=== PATIENT | male | born 1965 ===

== ENCOUNTER 2020-02-03 09:56 | Outpatient (REF) | payer OTHER, SELFPAY ==
[2020-02-03 11:53] LABS: MANUAL DIFF FLAG NO
[2020-02-03 12:03] LABS: Basophils Percent Auto 0.4 % (0-2); Eosinophils Absolute Auto 0.2 X10*3/uL (0.0-0.4); Eosinophils Percent Auto 4.1 % (0-4); Hemoglobin 14.2 g/dl (14.0-18.0); Imm Gran Abs Auto 0.02 X10*3/uL (0.00-0.03); Imm Gran Pct Auto 0.4 % (0.0-0.4); Lymphocytes Absolute Auto 2.5 X10*3/uL (1.2-4.9); Lymphocytes Percent Auto 46.5 % (20-40); Mean Corpuscular HGB Conc 32.3 g/dl (31.0-36.0); Mean Corpuscular Hemoglobin 28.2 pg (27.0-33.0); Mean Corpuscular Volume 87.5 fL (80-98); Mean Platelet Volume 9.8 fL (9.4-12.4); Monocytes Absolute Auto 0.3 X10*3/uL (0.1-1.2); Monocytes Percent Auto 5.3 % (2-11); Neutrophils Absolute Auto 2.3 X10*3/uL (2.0-8.3); Neutrophils Percent Auto 43.3 % (45-73); Platelet Count 219 X10*3/uL (160-400); Red Blood Count 5.03 X10*6/uL (4.60-5.80); Red Cell Distribution Width 13.4 % (11.0-16.0); White Blood Count 5.3 X10*3/uL (4.8-10.8)
[2020-02-03 12:46] LABS: Alanine Aminotransferase 45 U/L (0-40); Albumin Level 4.3 g/dL (3.5-5.0); Alkaline Phosphatase 88 U/L (39-117); Anion Gap 10 (12-20); Aspartate Amino Transferase 35 U/L (5-37); Bilirubin Total 0.4 mg/dL (0.0-1.0); Blood Urea Nitrogen 18 mg/dL (9-16); Calcium 8.8 mg/dL (8.4-10.2); Carbon Dioxide 24 mmol/L (22-29); Chloride 106 mmol/L (96-108); Cholesterol 197 mg/dL; Estimated Glomerular Filt Rate > 60; Glucose Fasting 106 mg/dL (60-99); HDL Cholesterol 51 mg/dL; LDL Cholesterol Calculated 116 mg/dl; Potassium 4.2 mmol/l (3.3-5.1); Sodium 136 mmol/L (135-145); Total Protein 7.4 g/dL (6.5-8.0); Triglycerides 150 mg/dL
== END 2020-02-03 09:57 | disposition home or self-care (01) ==
LOC: HO.LAB 09:56
PROVIDERS: PCP Internal Medicine; Visit Provider Internal Medicine
DX: M54.9 Dorsalgia, unspecified (principal)
CPT/HCPCS: 36415; 80053; 80061; 84153; 85025

== ENCOUNTER → 2020-03-01 10:12 | Outpatient (BNVA) | payer OTHER, SELFPAY | PROVIDERS: PCP Internal Medicine; Referring Provider Internal Medicine; Visit Provider Student in an Organized Health Care Education/Training Program | DX: M45.9 Ankylosing spondylitis of unspecified sites in spine (principal); Z79.899 Other long term (current) drug therapy | CPT/HCPCS: 99212 ==

== ENCOUNTER 2020-08-17 14:40 | Outpatient (REF) | payer OTHER, SELFPAY ==
[2020-08-17 15:02] LABS: COVID-19 Test Negative (Negative)
== END 2020-08-17 14:41 | disposition home or self-care (01) ==
LOC: HO.LAB 14:40
PROVIDERS: Visit Provider Internal Medicine
DX: Z20.822 Contact with and (suspected) exposure to COVID-19 (principal)
CPT/HCPCS: 36415; 87635; C9803

== ENCOUNTER → 2020-09-07 09:15 | Outpatient (BNVA) | payer OTHER, SELFPAY | PROVIDERS: Visit Provider Student in an Organized Health Care Education/Training Program | DX: M47.899 Other spondylosis, site unspecified (principal) | CPT/HCPCS: 99212 ==

== ENCOUNTER 2020-10-05 09:23 | Outpatient (REF) | payer OTHER, SELFPAY ==
[2020-10-05 09:52] LABS: MANUAL DIFF FLAG NO
[2020-10-05 10:01] LABS: Basophils Percent Auto 0.4 % (0-2); Eosinophils Absolute Auto 0.3 X10*3/uL (0.0-0.4); Eosinophils Percent Auto 4.6 % (0-4); Hematocrit 41.4 % (42-52); Hemoglobin 13.4 g/dl (14.0-18.0); Imm Gran Abs Auto 0.02 X10*3/uL (0.00-0.03); Imm Gran Pct Auto 0.4 % (0.0-0.4); Lymphocytes Absolute Auto 2.7 X10*3/uL (1.2-4.9); Lymphocytes Percent Auto 48.3 % (20-40); Mean Corpuscular HGB Conc 32.4 g/dl (31.0-36.0); Mean Corpuscular Hemoglobin 28.3 pg (27.0-33.0); Mean Corpuscular Volume 87.5 fL (80-98); Mean Platelet Volume 9.2 fL (9.4-12.4); Monocytes Absolute Auto 0.3 X10*3/uL (0.1-1.2); Monocytes Percent Auto 5.5 % (2-11); Neutrophils Absolute Auto 2.3 X10*3/uL (2.0-8.3); Neutrophils Percent Auto 40.8 % (45-73); Platelet Count 217 X10*3/uL (160-400); Red Blood Count 4.73 X10*6/uL (4.60-5.80); Red Cell Distribution Width 13.1 % (11.0-16.0); White Blood Count 5.6 X10*3/uL (4.8-10.8)
[2020-10-05 10:19] LABS: C Reactive Protein 0.57 mg/dL (< or = 0.50)
[2020-10-05 10:27] LABS: Alanine Aminotransferase 34 U/L (0-40); Albumin Level 4.2 g/dL (3.5-5.0); Alkaline Phosphatase 96 U/L (39-117); Anion Gap 10 (12-20); Aspartate Amino Transferase 28 U/L (5-37); Bilirubin Total 0.5 mg/dL (0.0-1.0); Blood Urea Nitrogen 15 mg/dL (9-16); Calcium 8.8 mg/dL (8.4-10.2); Carbon Dioxide 26 mmol/L (22-29); Chloride 107 mmol/L (96-108); Cholesterol 191 mg/dL; Estimated Glomerular Filt Rate > 60; Glucose Fasting 105 mg/dL (60-99); HDL Cholesterol 48 mg/dL; LDL Cholesterol Calculated 118 mg/dl; Potassium 4.2 mmol/L (3.3-5.1); Sodium 139 mmol/L (135-145); Total Protein 7.2 g/dL (6.5-8.0); Triglycerides 128 mg/dL
[2020-10-05 10:37] LABS: Thyroid Stimulating Hormone 2.07 uIU/mL (0.32-4.0)
[2020-10-05 10:52] LABS: Erythrocyte Sedimentation Rate 20 MM/HR (0-15)
== END 2020-10-05 09:24 | disposition home or self-care (01) ==
LOC: HO.LAB 09:23
PROVIDERS: Absent Provider Internal Medicine; PCP Internal Medicine; Visit Provider Student in an Organized Health Care Education/Training Program
DX: Z00.00 Encounter for general adult medical examination without abnormal findings (principal); M47.899 Other spondylosis, site unspecified; E11.9 Type 2 diabetes mellitus without complications; E03.9 Hypothyroidism, unspecified
CPT/HCPCS: 36415; 80053; 80061; 84443; 85025; 85652; 86140

== ENCOUNTER 2020-10-09 11:14 | Outpatient (REF) | payer OTHER, SELFPAY | END 2020-10-09 11:15 | disposition home or self-care (01) | LOC: HO.HMGCX 11:14 | PROVIDERS: PCP Internal Medicine; Visit Provider Internal Medicine | DX: Z13.89 Encounter for screening for other disorder (principal) ==

== ENCOUNTER 2020-10-22 10:25 | Outpatient (REF) | payer OTHER, SELFPAY ==
--- NOTE | ~2020-10-22 | US_ITS ---
EXAMINATION: US ABDOMEN COMPLETE CLINICAL INFORMATION: Abdominal pain. COMPARISON: US abdomen 04/29/2018 and 07/01/2012. TECHNIQUE: Real-time imaging of the abdominal viscera. FINDINGS: PANCREAS: Normal. ABDOMINAL AORTA: The proximal, mid, and distal segments are normal in caliber. INFERIOR VENA CAVA: Visualized portions are normal. LIVER: The liver is normal in size. The liver contour is normal. There is increased liver echogenicity. No focal hepatic lesion. There is no intrahepatic biliary duct dilatation seen. GALLBLADDER: Wall thickness measures 0.15 cm. The gallbladder is physiologically distended without evidence of stones, sludge, polyps, wall thickening or pericholecystic fluid. COMMON BILE DUCT: Normal in caliber measuring 0.35 cm in diameter. RIGHT KIDNEY: Normal. No hydronephrosis. No renal calculi or focal parenchymal lesions. The kidney measures 11.3 cm in maximum dimension. LEFT KIDNEY: There is an extrarenal left kidney pelvis. No hydronephrosis. No renal calculi or focal parenchymal lesions. The kidney measures 11.6 cm in maximum dimension. SPLEEN: Normal. The spleen measures 10.8 cm in maximum dimension. FREE FLUID: None. US/US abdomen complete IMPRESSION: Hepatic steatosis without focal lesion. Extrarenal left kidney pelvis.
== END 2020-10-22 10:26 | disposition home or self-care (01) ==
LOC: HO.HMGCX 10:25
PROVIDERS: PCP Internal Medicine; Visit Provider Internal Medicine
DX: R10.9 Unspecified abdominal pain (principal)
CPT/HCPCS: 76700

== ENCOUNTER 2021-01-03 08:52 | Outpatient (REF) | payer OTHER, SELFPAY ==
[2021-01-03 09:33] LABS: MANUAL DIFF FLAG NO
[2021-01-03 09:39] LABS: Basophils Percent Auto 0.3 % (0-2); Eosinophils Absolute Auto 0.3 X10*3/uL (0.0-0.4); Eosinophils Percent Auto 4.7 % (0-4); Hematocrit 41.6 % (42-52); Hemoglobin 14.1 g/dl (14.0-18.0); Imm Gran Abs Auto 0.01 X10*3/uL (0.00-0.03); Imm Gran Pct Auto 0.2 % (0.0-0.4); Lymphocytes Absolute Auto 2.7 X10*3/uL (1.2-4.9); Mean Corpuscular HGB Conc 33.9 g/dl (31.0-36.0); Mean Corpuscular Hemoglobin 29.6 pg (27.0-33.0); Mean Corpuscular Volume 87.2 fL (80-98); Mean Platelet Volume 9.4 fL (9.4-12.4); Monocytes Absolute Auto 0.3 X10*3/uL (0.1-1.2); Monocytes Percent Auto 5.6 % (2-11); Neutrophils Absolute Auto 2.4 X10*3/uL (2.0-8.3); Neutrophils Percent Auto 42.2 % (45-73); Platelet Count 217 X10*3/uL (160-400); Red Blood Count 4.77 X10*6/uL (4.60-5.80); Red Cell Distribution Width 13.6 % (11.0-16.0); White Blood Count 5.8 X10*3/uL (4.8-10.8)
[2021-01-03 09:58] LABS: Alanine Aminotransferase 32 U/L (0-40); Albumin Level 4.2 g/dL (3.5-5.0); Alkaline Phosphatase 94 U/L (39-117); Anion Gap 10 (12-20); Aspartate Amino Transferase 25 U/L (5-37); Bilirubin Total 0.4 mg/dL (0.0-1.0); C Reactive Protein 0.36 mg/dL (< or = 0.50); Calcium 9.3 mg/dL (8.4-10.2); Carbon Dioxide 24 mmol/L (22-29); Chloride 108 mmol/L (96-108); Estimated Glomerular Filt Rate > 60; Glucose Random 106 mg/dL (60-115); Potassium 4.3 mmol/L (3.3-5.1); Sodium 138 mmol/L (135-145); Total Protein 7.3 g/dL (6.5-8.0)
[2021-01-03 10:25] LABS: Blood Urea Nitrogen 17 mg/dL (9-16); Erythrocyte Sedimentation Rate 19 MM/HR (0-15)
== END 2021-01-03 08:53 | disposition home or self-care (01) ==
LOC: HO.LAB 08:52
PROVIDERS: PCP Internal Medicine; Visit Provider Student in an Organized Health Care Education/Training Program
DX: M47.899 Other spondylosis, site unspecified (principal)
CPT/HCPCS: 36415; 80053; 85025; 85652; 86140

== ENCOUNTER 2021-05-16 08:27 | Outpatient (REF) | payer OTHER, SELFPAY ==
[2021-05-16 08:52] LABS: MANUAL DIFF FLAG NO
[2021-05-16 09:24] LABS: Basophils Percent Auto 0.2 % (0-2); Eosinophils Absolute Auto 0.4 X10*3/uL (0.0-0.4); Eosinophils Percent Auto 6.6 % (0-4); Hematocrit 41.1 % (42.0-52.0); Hemoglobin 13.6 g/dl (14.0-18.0); Imm Gran Abs Auto 0.01 X10*3/uL (0.00-0.03); Imm Gran Pct Auto 0.2 % (0.0-0.4); Lymphocytes Absolute Auto 2.6 X10*3/uL (1.2-4.9); Lymphocytes Percent Auto 46.9 % (20-40); Mean Corpuscular HGB Conc 33.1 g/dl (31.0-36.0); Mean Corpuscular Hemoglobin 28.8 pg (27.0-33.0); Mean Corpuscular Volume 87.1 fL (80.0-98.0); Mean Platelet Volume 9.3 fL (9.4-12.4); Monocytes Absolute Auto 0.3 X10*3/uL (0.1-1.2); Monocytes Percent Auto 4.7 % (2-11); Neutrophils Absolute Auto 2.3 x10*3/uL (2.0-8.3); Neutrophils Percent Auto 41.4 % (45-73); Platelet Count 198 X10*3/uL (160-400); Red Blood Count 4.72 X10*6/uL (4.60-5.80); Red Cell Distribution Width 13.1 % (11.0-16.0); White Blood Count 5.6 X10*3/uL (4.8-10.8)
[2021-05-16 09:45] LABS: Alanine Aminotransferase 22 U/L (0-40); Alkaline Phosphatase 93 U/L (39-117); Anion Gap 9 (12-20); Aspartate Amino Transferase 23 U/L (5-37); Bilirubin Total 0.5 mg/dL (0.0-1.0); Blood Urea Nitrogen 13 mg/dL (9-16); C Reactive Protein 0.39 mg/dL (< or = 0.50); Carbon Dioxide 24 mmol/L (22-29); Chloride 110 mmol/L (96-108); Estimated Glomerular Filt Rate > 60; Glucose Random 109 mg/dL (60-115); Potassium 4.2 mmol/L (3.3-5.1); Sodium 139 mmol/L (135-145); Total Protein 7.1 g/dL (6.5-8.0)
[2021-05-16 10:06] LABS: Erythrocyte Sedimentation Rate 18 MM/HR (0-15)
== END 2021-05-16 08:28 | disposition home or self-care (01) ==
LOC: HO.LAB 08:27
PROVIDERS: Nurse Practitioner Family; PCP Internal Medicine; Visit Provider Student in an Organized Health Care Education/Training Program
DX: M47.899 Other spondylosis, site unspecified (principal)
CPT/HCPCS: 36415; 80053; 85025; 85652; 86140

== ENCOUNTER → 2021-05-23 08:49 | Outpatient (BNVA) | payer OTHER, SELFPAY | PROVIDERS: PCP Internal Medicine; Visit Provider Nurse Practitioner Family | DX: M47.899 Other spondylosis, site unspecified (principal); M25.551 Pain in right hip; M25.552 Pain in left hip | CPT/HCPCS: 99212 ==

== ENCOUNTER 2021-10-25 07:54 | Outpatient (REF) | payer OTHER, SELFPAY ==
[2021-10-25 08:33] LABS: MANUAL DIFF FLAG NO
[2021-10-25 09:10] LABS: Basophils Percent Auto 0.2 % (0-2); Eosinophils Absolute Auto 0.3 X10*3/uL (0.0-0.4); Eosinophils Percent Auto 5.4 % (0-4); Hematocrit 41.7 % (42.0-52.0); Hemoglobin 13.9 g/dl (14.0-18.0); Imm Gran Abs Auto 0.02 X10*3/uL (0.00-0.03); Imm Gran Pct Auto 0.4 % (0.0-0.4); Lymphocytes Absolute Auto 2.3 X10*3/uL (1.2-4.9); Lymphocytes Percent Auto 45.6 % (20-40); Mean Corpuscular HGB Conc 33.3 g/dl (31.0-36.0); Mean Corpuscular Hemoglobin 28.8 pg (27.0-33.0); Mean Corpuscular Volume 86.5 fL (80.0-98.0); Mean Platelet Volume 9.3 fL (9.4-12.4); Monocytes Absolute Auto 0.3 X10*3/uL (0.1-1.2); Monocytes Percent Auto 5.2 % (2-11); Neutrophils Absolute Auto 2.1 x10*3/uL (2.0-8.3); Neutrophils Percent Auto 43.2 % (45-73); Platelet Count 210 X10*3/uL (160-400); Red Blood Count 4.82 X10*6/uL (4.60-5.80); Red Cell Distribution Width 13.2 % (11.0-16.0)
[2021-10-25 09:32] LABS: Alanine Aminotransferase 24 U/L (0-40); Albumin Level 4.1 g/dL (3.5-5.0); Alkaline Phosphatase 86 U/L (39-117); Anion Gap 11 (12-20); Aspartate Amino Transferase 25 U/L (5-37); Bilirubin Total 0.6 mg/dL (0.0-1.0); Blood Urea Nitrogen 12 mg/dL (9-16); C Reactive Protein 0.31 mg/dL (< or = 0.50); Carbon Dioxide 24 mmol/L (22-29); Chloride 108 mmol/L (96-108); Estimated Glomerular Filt Rate > 60; Glucose Random 106 mg/dL (60-115); Potassium 4.3 mmol/L (3.3-5.1); Sodium 139 mmol/L (135-145); Total Protein 7.2 g/dL (6.5-8.0)
[2021-10-25 09:52] LABS: HBS Num1 11.76 mIU/mL (0-7.99); HBc Num1 0.06 S/CO (0.00-0.79); Hepatitis A Antibody IgM 0.18 Index (0-0.79); Hepatitis B Core Antibody Nonreactive (Nonreactive); Hepatitis B Surface Antigen Negative (Negative); ~Hepatitis A Antibody IgM Nonreactive (Nonreactive); ~Hepatitis C Antibody Nonreactive (Nonreactive)
[2021-10-25 09:57] LABS: Erythrocyte Sedimentation Rate 21 MM/HR (0-15)
[2021-10-25 11:18] LABS: HBS Num3 10.76 mIU/mL (0-7.99); ~Hepatitis B Surface Antibody GRAYZONE (Nonreactive)
[2021-10-29 13:36] LABS: TS Negative Control Passed; TS Panel A 0; TS Panel B 2; TS Positive Control Passed; TSpotTB Negative (Negative)
== END 2021-10-25 07:55 | disposition home or self-care (01) ==
LOC: HO.LAB 07:54
PROVIDERS: PCP Internal Medicine; Visit Provider Nurse Practitioner Family
DX: Z11.1 Encounter for screening for respiratory tuberculosis (principal); M47.899 Other spondylosis, site unspecified
CPT/HCPCS: 36415; 80053; 85025; 85652; 86140; 86481; 86704; 86706; 86709; 86803; 87340

== ENCOUNTER → 2021-10-28 12:17 | Outpatient (BNVA) | payer OTHER, SELFPAY | PROVIDERS: PCP Internal Medicine; Visit Provider Nurse Practitioner Family | DX: M25.551 Pain in right hip (principal); M25.552 Pain in left hip; M47.899 Other spondylosis, site unspecified | CPT/HCPCS: 99212 ==

== ENCOUNTER → 2021-10-30 11:07 | Outpatient (BNVA) | payer OTHER, SELFPAY | PROVIDERS: PCP Internal Medicine; Referring Provider Internal Medicine; Visit Provider Surgery | DX: K64.9 Unspecified hemorrhoids (principal) | CPT/HCPCS: 46600; 99202 ==

== ENCOUNTER 2022-03-07 08:15 | Outpatient (REF) | payer OTHER, SELFPAY ==
[2022-03-07 08:25] LABS: MANUAL DIFF FLAG NO
[2022-03-07 09:00] LABS: Basophils Percent Auto 0.3 % (0-2); Eosinophils Absolute Auto 0.3 X10*3/uL (0.0-0.4); Eosinophils Percent Auto 4.7 % (0-4); Hematocrit 42.6 % (42.0-52.0); Hemoglobin 13.9 g/dl (14.0-18.0); Imm Gran Abs Auto 0.02 X10*3/uL (0.00-0.03); Imm Gran Pct Auto 0.3 % (0.0-0.4); Lymphocytes Percent Auto 47.8 % (20-40); Mean Corpuscular HGB Conc 32.6 g/dl (31.0-36.0); Mean Corpuscular Volume 88.9 fL (80.0-98.0); Mean Platelet Volume 9.3 fL (9.4-12.4); Monocytes Absolute Auto 0.3 X10*3/uL (0.1-1.2); Monocytes Percent Auto 5.2 % (2-11); Neutrophils Absolute Auto 2.6 x10*3/uL (2.0-8.3); Neutrophils Percent Auto 41.7 % (45-73); Platelet Count 228 X10*3/uL (160-400); Red Blood Count 4.79 X10*6/uL (4.60-5.80); Red Cell Distribution Width 13.2 % (11.0-16.0); White Blood Count 6.2 X10*3/uL (4.8-10.8)
[2022-03-07 09:41] LABS: Erythrocyte Sedimentation Rate 28 MM/HR (0-15)
[2022-03-07 09:47] LABS: Alanine Aminotransferase 32 U/L (0-40); Aspartate Amino Transferase 29 U/L (5-37); C Reactive Protein 0.45 mg/dL (< or = 0.50); Estimated Glomerular Filt Rate > 60
== END 2022-03-07 08:16 | disposition home or self-care (01) ==
LOC: HO.LAB 08:15
PROVIDERS: PCP Internal Medicine; Visit Provider Nurse Practitioner Family
DX: M47.899 Other spondylosis, site unspecified (principal); Z79.899 Other long term (current) drug therapy
CPT/HCPCS: 36415; 82565; 84450; 84460; 85025; 85652; 86140

== ENCOUNTER → 2022-04-02 11:47 | Outpatient (BNVA) | payer OTHER, SELFPAY | PROVIDERS: PCP Internal Medicine; Visit Provider Nurse Practitioner Family | DX: M47.899 Other spondylosis, site unspecified (principal); M25.551 Pain in right hip; M25.552 Pain in left hip | CPT/HCPCS: 99212 ==

== ENCOUNTER 2022-06-27 08:45 | Outpatient (REF) | payer OTHER, SELFPAY ==
--- NOTE | ~2022-06-27 | XR_ITS ---
EXAMINATION: XR HIP, RIGHT XR HIP, LEFT CLINICAL INFORMATION: Hip pain. COMPARISON: Pelvis and right hip radiographs 08/26/2017. TECHNIQUE: Each hip is imaged in AP and frog-lateral projections. There are a total of 4 views, 2 on each side. FINDINGS: Normal bony mineralization. No fracture, dislocation, or destructive process. The hips show no focal joint narrowing or erosive change or chondrocalcinosis. Soft tissue planes appear symmetric. No diastases SI joints or pubis. There is mild bilateral lateral whiskering of the iliac crests similar to prior radiograph 2018. Hardware again noted lumbosacral spine. XR/XR hip RT min 2V IMPRESSION: Unremarkable bilateral hips.
--- NOTE | ~2022-06-27 | XR_ITS ---
EXAMINATION: XR HIP, RIGHT XR HIP, LEFT CLINICAL INFORMATION: Hip pain. COMPARISON: Pelvis and right hip radiographs 08/26/2017. TECHNIQUE: Each hip is imaged in AP and frog-lateral projections. There are a total of 4 views, 2 on each side. FINDINGS: Normal bony mineralization. No fracture, dislocation, or destructive process. The hips show no focal joint narrowing or erosive change or chondrocalcinosis. Soft tissue planes appear symmetric. No diastases SI joints or pubis. There is mild bilateral lateral whiskering of the iliac crests similar to prior radiograph 2018. Hardware again noted lumbosacral spine. XR/XR hip LT min 2V IMPRESSION: Unremarkable bilateral hips.
--- NOTE | ~2022-06-27 | XR_ITS ---
EXAMINATION: XR LUMBOSACRAL SPINE CLINICAL INFORMATION: M54.50 - Low back pain, unspecified COMPARISON: Lumbar radiographs 04/29/2011 TECHNIQUE: Three views of the lumbosacral spine. FINDINGS: There is normal lumbar segmentation with 5 nonrib-bearing lumbar vertebrae of normal height and normal lumbar lordosis. There are postsurgical changes with anterior lumbosacral fusion L5-S1 and disc spacer, and metallic plate between posterior spinous processes L3-L4. Hardware is intact. No destructive process or osteolysis. There is no vertebral compression there are anterior bridging osteophytes at L1-L2. There is a borderline grade 0-1 spondylolisthesis at L3-L4 mild degenerative changes SI joints. Sacrum are unremarkable. XR/XR lumbar spine 2-3V IMPRESSION: 1. Postsurgical changes. Hardware intact. No destructive process or osteolysis. 2. Borderline grade 0-1 spondylolisthesis L3-L4. 3. Bridging anterior osteophytes L1-L2.
== END 2022-06-27 08:46 | disposition home or self-care (01) ==
LOC: HO.XRAY 08:45
PROVIDERS: PCP Internal Medicine; Visit Provider Nurse Practitioner Family
DX: M54.50 Low back pain, unspecified (principal); M25.552 Pain in left hip; M25.551 Pain in right hip
CPT/HCPCS: 72100; 73502

== ENCOUNTER 2022-07-17 11:55 | Outpatient (REF) | payer OTHER, SELFPAY ==
--- NOTE | ~2022-07-17 | XR_ITS ---
EXAMINATION: XR KNEES STANDING, BILATERAL XR KNEES, BILATERAL CLINICAL INDICATION: Bilateral knee pain. COMPARISON: Bilateral knees and left knee 03/25/2016. TECHNIQUE: AP bilateral knees standing and 2 views each knee. FINDINGS: Bilateral AP Knees: There is loss of medial compartment joint space without bony erosive changes. There are no loose bodies. The soft tissues are normal. Right Knee: There is loss of patellofemoral compartment joint space with superior patellar spurring. No loose bodies or suprapatellar joint effusion seen. Left Knee: There is severe loss of patellofemoral compartment joint space with periarticular spurring. No visible acute fracture or dislocation seen. There is no joint effusion. XR/XR knee RT 2V IMPRESSION: Degenerative arthritic changes medial and patellofemoral compartment both knees with periarticular spurring. No visible acute fracture or dislocation seen.
--- NOTE | ~2022-07-17 | XR_ITS ---
EXAMINATION: XR KNEES STANDING, BILATERAL XR KNEES, BILATERAL CLINICAL INDICATION: Bilateral knee pain. COMPARISON: Bilateral knees and left knee 03/25/2016. TECHNIQUE: AP bilateral knees standing and 2 views each knee. FINDINGS: Bilateral AP Knees: There is loss of medial compartment joint space without bony erosive changes. There are no loose bodies. The soft tissues are normal. Right Knee: There is loss of patellofemoral compartment joint space with superior patellar spurring. No loose bodies or suprapatellar joint effusion seen. Left Knee: There is severe loss of patellofemoral compartment joint space with periarticular spurring. No visible acute fracture or dislocation seen. There is no joint effusion. XR/XR knee LT 2V IMPRESSION: Degenerative arthritic changes medial and patellofemoral compartment both knees with periarticular spurring. No visible acute fracture or dislocation seen.
--- NOTE | ~2022-07-17 | XR_ITS ---
EXAMINATION: XR KNEES STANDING, BILATERAL XR KNEES, BILATERAL CLINICAL INDICATION: Bilateral knee pain. COMPARISON: Bilateral knees and left knee 03/25/2016. TECHNIQUE: AP bilateral knees standing and 2 views each knee. FINDINGS: Bilateral AP Knees: There is loss of medial compartment joint space without bony erosive changes. There are no loose bodies. The soft tissues are normal. Right Knee: There is loss of patellofemoral compartment joint space with superior patellar spurring. No loose bodies or suprapatellar joint effusion seen. Left Knee: There is severe loss of patellofemoral compartment joint space with periarticular spurring. No visible acute fracture or dislocation seen. There is no joint effusion. XR/XR knee standing BI IMPRESSION: Degenerative arthritic changes medial and patellofemoral compartment both knees with periarticular spurring. No visible acute fracture or dislocation seen.
== END 2022-07-17 11:56 | disposition home or self-care (01) ==
LOC: HO.HOSX 11:55
PROVIDERS: Visit Provider Orthopaedic Surgery
DX: M17.0 Bilateral primary osteoarthritis of knee (principal); M25.462 Effusion, left knee
CPT/HCPCS: 20610; 73560; 73565; 99212; J1100

== ENCOUNTER → 2022-07-25 11:47 | Outpatient (BNVA) | payer OTHER, SELFPAY | PROVIDERS: PCP Internal Medicine; Visit Provider Nurse Practitioner Family | DX: M47.899 Other spondylosis, site unspecified (principal); M25.551 Pain in right hip; M25.552 Pain in left hip | CPT/HCPCS: 99212 ==

== ENCOUNTER 2022-09-26 09:36 | Outpatient (REF) | payer OTHER, SELFPAY ==
[2022-09-26 09:54] LABS: MANUAL DIFF FLAG NO
[2022-09-26 11:02] LABS: Basophils Percent Auto 0.4 % (0-2); Eosinophils Absolute Auto 0.2 X10*3/uL (0.0-0.4); Eosinophils Percent Auto 4.3 % (0-4); Hematocrit 42.8 % (42.0-52.0); Hemoglobin 14.1 g/dl (14.0-18.0); Imm Gran Abs Auto 0.01 X10*3/uL (0.00-0.03); Imm Gran Pct Auto 0.2 % (0.0-0.4); Lymphocytes Absolute Auto 2.9 X10*3/uL (1.2-4.9); Lymphocytes Percent Auto 52.2 % (20-40); Mean Corpuscular HGB Conc 32.9 g/dl (31.0-36.0); Mean Corpuscular Hemoglobin 28.9 pg (27.0-33.0); Mean Corpuscular Volume 87.7 fL (80.0-98.0); Mean Platelet Volume 9.6 fL (9.4-12.4); Monocytes Absolute Auto 0.3 X10*3/uL (0.1-1.2); Monocytes Percent Auto 5.3 % (2-11); Neutrophils Absolute Auto 2.1 x10*3/uL (2.0-8.3); Neutrophils Percent Auto 37.6 % (45-73); Platelet Count 239 X10*3/uL (160-400); Red Blood Count 4.88 X10*6/uL (4.60-5.80); Red Cell Distribution Width 13.2 % (11.0-16.0); White Blood Count 5.6 X10*3/uL (4.8-10.8)
[2022-09-26 11:35] LABS: Alanine Aminotransferase 20 U/L (0-40); Albumin Level 3.8 g/dL (3.5-5.0); Alkaline Phosphatase 79 U/L (39-117); Anion Gap 12 (12-20); Aspartate Amino Transferase 18 U/L (5-37); Bilirubin Total 0.5 mg/dL (0.0-1.0); Blood Urea Nitrogen 14 mg/dL (9-16); C Reactive Protein 0.21 mg/dL (< or = 0.50); Calcium 8.9 mg/dL (8.4-10.2); Carbon Dioxide 23 mmol/L (22-29); Chloride 109 mmol/L (96-108); Estimated Glomerular Filt Rate > 60; Glucose Random 99 mg/dL (60-115); Potassium 4.4 mmol/L (3.3-5.1); Sodium 140 mmol/L (135-145); Total Protein 6.5 g/dL (6.5-8.0)
[2022-09-26 11:47] LABS: Erythrocyte Sedimentation Rate 10 MM/HR (0-15)
== END 2022-09-26 09:37 | disposition home or self-care (01) ==
LOC: HO.LAB 09:36
PROVIDERS: Visit Provider Nurse Practitioner Family
DX: M47.899 Other spondylosis, site unspecified (principal)
CPT/HCPCS: 36415; 80053; 85025; 85652; 86140

== ENCOUNTER 2022-11-25 11:01 | Outpatient (AMB) | payer OTHER, SELFPAY ==
--- NOTE | 2022-11-25 10:56 | A.OFFPC_ITS ---
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: Med Management Intake Note: Patient is here to follow up on med management. 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 Space Operations: Not Required per policy Accompanied by: Self / Same As Patient Allergies seasonal allergies Allergy (Unknown, Uncoded 11/25/22 10:57) Unknown Medication List - Last Reconciled 11/25/22 by Roldan Andino MD albuterol sulfate 90 mcg/actuation 2 puffs inhalation Q6H PRN 30 days etanercept (Enbrel SureClick) 50 mg subcut QWEEK fluticasone propionate 50 mcg/actuation 1 spray intranasal BID naproxen 500 mg PO BID PRN omeprazole 20 mg PO DAILY oxycodone 10 mg PO Q8H PRN 28 days sildenafil (Viagra) 50 mg PO DAILY PRN Tobacco use date assessed: 08/29/22 HPI Med Management HPI Details f/u failed back syndrome; doing well PFSH Medical History Asthma Failed back syndrome Family history of GERD History of rectal bleeding HLA-B27 spondyloarthropathy Hx of gout Hx of hemorrhoids Hx of osteoarthritis Obesity Surgical History History of adenoidectomy History of arthroscopy of right knee History of back surgery History of inguinal hernia repair History of lumbar surgery Hx of knee surgery Hx of tonsillectomy Family History Mother Pancreas cancer Diabetes Father Prostate cancer Rheumatoid arthritis Brother Diabetes Sister Diabetes Daughter No problems noted. Social History Housing: House Alcohol intake: current Alcohol intake frequency: holidays/special occasions only Patient Tobacco Use Status: Former Tobacco user Tobacco use type: Cigarette e-Cigarette/Vaping Use: Never Used Second Hand Smoke Exposure: Yes service: No Current occupational status: disabled Cognitive needs: No Hearing needs: No Vision needs: No Questionnaire Thrive Questionnaire Date Thrive assessed: 08/01/22 VIKTORIA-7 AMB Questionnaire VIKTORIA-7 Date VIKTORIA - 7 assessed: 08/01/22 Source: Developed by Drs. Carroll Power, Chiquita Porter, Rod Branham and colleagues, with an educational tuan from [email or web address]. Review of Systems Const Denies chills, Denies headache(s) and Denies weight loss ENT Denies headache(s) Card Denies chest pain, Denies syncope, Denies irregular heart rhythm and Denies dyspnea Resp Denies chest congestion, Denies cough and Denies dyspnea GI Denies abdominal pain, Denies change in stool character, Denies nausea and Denies vomiting Musc Denies deformity and Denies joint swelling Neuro Denies syncope and Denies headache(s) Physical exam (Primary Care) Tobacco/Smoking Status: Tobacco use Status Tobacco use date assessed 08/29/22 11/25/22 11:01 Patient Tobacco Use Status Former Tobacco user 11/25/22 11:01 Tobacco use type Cigarette 11/25/22 11:01 e-Cigarette/Vaping Use Never Used 11/25/22 11:01 Thrive Assessment: Date of Thrive Assessment Date Thrive assessed 08/01/22 11/25/22 11:01 Telehealth Telehealth Location of provider rendering services: practice address Location of patient: address on file Patient Identification confirmed using: Name, : Yes Telehealth method: voice only Patient verbally consented to treatment: Yes Patient verbally consented to billing insurance company: Yes Patient informed of any privacy concerns related to visit: Yes Minutes spent on Phone/Video with Pt.: 15 (telephone) Assessment and Plan Assessment & Plan (1) Failed back syndrome: Code(s): M96.1 - Postlaminectomy syndrome, not elsewhere classified Plan: stable; same rx Medications: Refilled oxycodone 10 mg PO Q8H PRN 84 tabs 0RF pain 28 days Coding Level of Care Code Tele Est Pt Level 3 (13197) Diagnoses Failed back syndrome M96.1
== END 2022-11-25 11:19 | disposition home or self-care (01) ==
LOC: HO.HMGH 11:01
PROVIDERS: PCP Internal Medicine; Visit Provider Internal Medicine
DX: M96.1 Postlaminectomy syndrome, not elsewhere classified (principal)
CPT/HCPCS: 99213

== ENCOUNTER 2022-12-25 11:12 | Outpatient (AMB) | payer OTHER, SELFPAY ==
[2022-12-25 11:16] VITALS: BP 128/68; PULSE 74; O2SAT 98; BMI 32.1
--- NOTE | 2022-12-25 11:16 | A.OFFPC_ITS ---
Vital Signs 12/25/22 11:16 Height 6 ft Weight 237 lb BMI 32.1 BP 128/68 Blood Pressure Location Lt brachial Position Sitting Pulse 74 Pulse Source Pulse Oximeter Pulse Oximetry (%) 98 Oxygen Delivery Method Room Air 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: Med Review Allergies seasonal allergies Allergy (Unknown, Uncoded 12/25/22 11:17) Unknown Medication List - Last Reconciled 12/25/22 by Roldan Andino MD albuterol sulfate 90 mcg/actuation 2 puffs inhalation Q6H PRN 30 days etanercept (Enbrel SureClick) 50 mg subcut QWEEK fluticasone propionate 50 mcg/actuation 1 spray intranasal BID naproxen 500 mg PO BID PRN omeprazole 20 mg PO DAILY oxycodone 10 mg PO Q8H PRN 28 days sildenafil (Viagra) 50 mg PO DAILY PRN Tobacco use date assessed: 08/29/22 Dental Screening Dental Screen Date: 12/25/22 Did you have a dental visit in the last 12 months?: Yes Did you have a dental problem in the last 6 months where you did not have access to dental care?: No Was dental information given to patient?: Patient has dentist HPI Med Review HPI Details f/u chronic back pain; stable PFSH Medical History Asthma Failed back syndrome Family history of GERD History of rectal bleeding HLA-B27 spondyloarthropathy Hx of gout Hx of hemorrhoids Hx of osteoarthritis Obesity Surgical History History of adenoidectomy History of arthroscopy of right knee History of back surgery History of inguinal hernia repair History of lumbar surgery Hx of knee surgery Hx of tonsillectomy Family History Mother Pancreas cancer Diabetes Father Prostate cancer Rheumatoid arthritis Brother Diabetes Sister Diabetes Daughter No problems noted. Social History Housing: House Alcohol intake: current Alcohol intake frequency: holidays/special occasions only Patient Tobacco Use Status: Former Tobacco user Tobacco use type: Cigarette e-Cigarette/Vaping Use: Never Used Second Hand Smoke Exposure: Yes service: No Current occupational status: disabled Cognitive needs: No Hearing needs: No Vision needs: No Questionnaire PHQ-9 Over the last 2 weeks, how often have you been bothered by any of the following problems? 1. Little interest or pleasure in doing things: not at all 2. Feeling down, depressed, or hopeless: not at all 3. Trouble falling or staying asleep, or sleeping too much: not at all 4. Feeling tired or having little energy: not at all 5. Poor appetite or overeating: not at all 6. Feeling bad about yourself - or that you are a failure or have let yourself or your family down: not at all 7. Trouble concentrating on things, such as reading the newspaper or watching television: not at all 8. Moving or speaking so slowly that other people could have noticed. Or the opposite - being so fidgety or restless that you have been moving around a lot more than usual: not at all 9. Thoughts that you would be better off or of hurting yourself in some way: not at all Total score: 0 Depression Screening Interpretation: Negative Source: Developed by Drs. Carroll Power, Rod Hernadez and colleagues, with an educational tuan from [employer]. Thrive Questionnaire Date Thrive assessed: 08/01/22 Currently or been in a relationship where the following occur: no concerns reported AUDIT C Alcohol Use Questionnaire (AUDIT-C) 1. How often do you have a drink containing alcohol?: 2-4 times a month 2. How many drinks containing alcohol do you have on a typical day when you are drinking?: 3 or 4 Total Score: 3 Score Reviewed/Action Taken: Yes VIKTORIA-7 AMB Questionnaire VIKTORIA-7 Date VIKTORIA - 7 assessed: 08/01/22 Source: Developed by Drs. Carroll Pwoer, Rod Hernadez and colleagues, with an educational tuan from [employer]. Review of Systems Const Denies chills, Denies headache(s) and Denies weight loss ENT Denies headache(s) Card Denies chest pain, Denies syncope, Denies irregular heart rhythm and Denies dyspnea Resp Denies chest congestion, Denies cough and Denies dyspnea GI Denies abdominal pain, Denies change in stool character, Denies nausea and Denies vomiting Musc Denies deformity and Denies joint swelling Neuro Denies syncope and Denies headache(s) Physical exam (Primary Care) Vital Signs: Last Vital Signs Pulse 74 12/25/22 11:16 BP 128/68 12/25/22 11:16 Pulse Ox 98 12/25/22 11:16 Oxygen Delivery Method Room Air 12/25/22 11:16 BMI result Body Mass Index 32.1 Tobacco/Smoking Status: Tobacco use Status Tobacco use date assessed 08/29/22 12/25/22 11:21 Patient Tobacco Use Status Former Tobacco user 12/25/22 11:21 Tobacco use type Cigarette 12/25/22 11:21 e-Cigarette/Vaping Use Never Used 12/25/22 11:21 PHQ-9: PHQ-9 Score PHQ-9: Total score 0 12/25/22 11:21 Depression Screening Interpretation: Negative Thrive Assessment: Date of Thrive Assessment Date Thrive assessed 08/01/22 12/25/22 11:21 Currently or been in a relationship where the following occur: no concerns reported Const General: cooperative, healthy appearing and comfortable Chest Chest palpation & inspection: normal inspection of the chest Resp Effort & Inspection: normal respiratory effort Auscultation: clear to auscultation bilaterally Percussion: percussion normal Cardio Jugular venous distension: no JVD Rate: regular rate Rhythm: regular rhythm Assessment and Plan Assessment & Plan (1) Failed back syndrome: Code(s): M96.1 - Postlaminectomy syndrome, not elsewhere classified Plan: stable; same meds Medications: Refilled oxycodone 10 mg PO Q8H 28 days PRN 84 tabs 0RF pain Coding Level of Care Code Est Pt Level 3 (38692) Diagnoses Failed back syndrome M96.1
== END 2022-12-25 12:01 | disposition home or self-care (01) ==
PROVIDERS: PCP Internal Medicine; Visit Provider Internal Medicine
DX: M96.1 Postlaminectomy syndrome, not elsewhere classified (principal)
CPT/HCPCS: 99213

== ENCOUNTER 2023-01-22 14:04 | Outpatient (AMB) | payer OTHER, SELFPAY ==
[2023-01-22 14:09] VITALS: BP 124/72; PULSE 73; O2SAT 98; BMI 31.9
--- NOTE | 2023-01-22 14:09 | A.OFFPC_ITS ---
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 Accompanied by: Self / Same As Patient Allergies seasonal allergies Allergy (Unknown, Uncoded 01/22/23 14:10) Unknown Medication List - Last Reconciled 01/23/23 by Roldan Andino MD albuterol sulfate 90 mcg/actuation 2 puffs inhalation Q6H PRN 30 days etanercept (Enbrel SureClick) 50 mg subcut QWEEK fluticasone propionate 50 mcg/actuation 1 spray intranasal BID naproxen 500 mg PO BID PRN omeprazole 20 mg PO DAILY oxycodone 10 mg PO Q8H PRN 28 days sildenafil (Viagra) 50 mg PO DAILY PRN Tobacco use date assessed: 08/29/22 Dental Screening Dental Screen Date: 01/22/23 Did you have a dental visit in the last 12 months?: Yes Did you have a dental problem in the last 6 months where you did not have access to dental care?: No Was dental information given to patient?: Patient has dentist HPI Med Management HPI Details failed back syndrome on rx; doing well; compliant [facility] Medical History Obesity Asthma Failed back syndrome HLA-B27 spondyloarthropathy Hx of hemorrhoids Hx of osteoarthritis Family history of GERD Hx of gout History of rectal bleeding Surgical History History of arthroscopy of right knee History of inguinal hernia repair History of adenoidectomy History of lumbar surgery History of back surgery Hx of knee surgery Hx of tonsillectomy Family History Mother Pancreas cancer Diabetes Father Prostate cancer Rheumatoid arthritis Brother Diabetes Sister Diabetes Daughter No problems noted. Social History Housing: House Alcohol intake: current Alcohol intake frequency: holidays/special occasions only Patient Tobacco Use Status: Former Tobacco user Tobacco use type: Cigarette e-Cigarette/Vaping Use: Never Used Second Hand Smoke Exposure: Yes service: No Current occupational status: disabled Cognitive needs: No Hearing needs: No Vision needs: No Questionnaire PHQ-9 Over the last 2 weeks, how often have you been bothered by any of the following problems? 1. Little interest or pleasure in doing things: not at all 2. Feeling down, depressed, or hopeless: not at all 3. Trouble falling or staying asleep, or sleeping too much: not at all 4. Feeling tired or having little energy: not at all 5. Poor appetite or overeating: not at all 6. Feeling bad about yourself - or that you are a failure or have let yourself or your family down: not at all 7. Trouble concentrating on things, such as reading the newspaper or watching television: not at all 8. Moving or speaking so slowly that other people could have noticed. Or the opposite - being so fidgety or restless that you have been moving around a lot more than usual: not at all 9. Thoughts that you would be better off or of hurting yourself in some way: not at all Total score: 0 Depression Screening Interpretation: Negative Source: Developed by Drs. Carroll Power, Rod Hernadez and colleagues, with an educational tuan from [employer]. Thrive Questionnaire Date Thrive assessed: 08/01/22 AUDIT C Alcohol Use Questionnaire (AUDIT-C) 1. How often do you have a drink containing alcohol?: 2-4 times a month 2. How many drinks containing alcohol do you have on a typical day when you are drinking?: 3 or 4 Total Score: 3 Score Reviewed/Action Taken: Yes VIKTORIA-7 AMB Questionnaire VIKTORIA-7 Date VIKTORIA - 7 assessed: 08/01/22 Source: Developed by Drs. Carroll Power, Rod Hernadez and colleagues, with an educational tuan from [employer]. Review of Systems Const Denies chills, Denies headache(s) and Denies weight loss ENT Denies headache(s) Card Denies chest pain, Denies syncope, Denies irregular heart rhythm and Denies dyspnea Resp Denies chest congestion, Denies cough and Denies dyspnea GI Denies abdominal pain, Denies change in stool character, Denies nausea and Denies vomiting Musc Denies deformity and Denies joint swelling Neuro Denies syncope and Denies headache(s) Physical exam (Primary Care) Vital Signs: Last Vital Signs Pulse 73 01/22/23 14:09 BP 124/72 01/22/23 14:09 Pulse Ox 98 01/22/23 14:09 Oxygen Delivery Method Room Air 01/22/23 14:09 BMI result Body Mass Index 31.9 Tobacco/Smoking Status: Tobacco use Status Tobacco use date assessed 08/29/22 01/22/23 14:13 Patient Tobacco Use Status Former Tobacco user 01/22/23 14:13 Tobacco use type Cigarette 01/22/23 14:13 e-Cigarette/Vaping Use Never Used 01/22/23 14:13 PHQ-9: PHQ-9 Score PHQ-9: Total score 0 01/22/23 14:13 Depression Screening Interpretation: Negative Thrive Assessment: Date of Thrive Assessment Date Thrive assessed 08/01/22 01/22/23 14:13 Const General: cooperative, comfortable, no acute distress and alert Neck Neck: Yes no lymphadenopathy Thyroid: Thyroid normal Resp Effort & Inspection: normal respiratory effort Auscultation: clear to auscultation bilaterally Percussion: percussion normal Cardio Jugular venous distension: no JVD Palpation: normal PMI Rate: regular rate Rhythm: regular rhythm Heart sounds: S1 normal heart sound present and S2 normal heart sound present GI Inspection: Yes normal to inspection Palpation (GI): No hepatosplenomegaly present Skin General skin exam: no rashes or lesions noted Extrem General: Yes no clubbing, cyanosis or edema Assessment and Plan Assessment & Plan (1) Failed back syndrome: Code(s): M96.1 - Postlaminectomy syndrome, not elsewhere classified Plan: stable; same rx Coding Level of Care Code Est Pt Level 3 (82226) Diagnoses Failed back syndrome M96.1
== END 2023-01-22 14:28 | disposition home or self-care (01) ==
PROVIDERS: PCP Internal Medicine; Visit Provider Internal Medicine
DX: M96.1 Postlaminectomy syndrome, not elsewhere classified (principal)
CPT/HCPCS: 99213

== ENCOUNTER 2023-02-26 11:08 | Outpatient (AMB) | payer OTHER, SELFPAY ==
[2023-02-26 11:02] VITALS: BMI 32.0
--- NOTE | 2023-02-26 11:02 | MHC.PC.OV ---
Vital Signs 02/26/23 11:02 Height 6 ft Weight 236 lb BMI 32.0 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: Med Management Allergies seasonal allergies Allergy (Unknown, Uncoded 02/26/23 11:02) Unknown Medication List - Last Reconciled 02/26/23 by Roldan Andino MD albuterol sulfate 90 mcg/actuation 2 puffs inhalation Q6H PRN 30 days etanercept (Enbrel SureClick) 50 mg subcut QWEEK fluticasone propionate 50 mcg/actuation 1 spray intranasal BID naproxen 500 mg PO BID PRN omeprazole 20 mg PO DAILY oxycodone 10 mg PO Q8H PRN 28 days sildenafil (Viagra) 50 mg PO DAILY PRN Tobacco use date assessed: 08/29/22 Dental Screening Dental Screen Date: 02/26/23 Did you have a dental visit in the last 12 months?: Yes Did you have a dental problem in the last 6 months where you did not have access to dental care?: No Was dental information given to patient?: Patient has dentist HPI Med Management HPI Details f/u chronic back pain; doing well on current rx PFSH Medical History Obesity Asthma Failed back syndrome HLA-B27 spondyloarthropathy Hx of hemorrhoids Hx of osteoarthritis Family history of GERD Hx of gout History of rectal bleeding Surgical History History of arthroscopy of right knee History of inguinal hernia repair History of adenoidectomy History of lumbar surgery History of back surgery Hx of knee surgery Hx of tonsillectomy Family History Mother Pancreas cancer Diabetes Father Prostate cancer Rheumatoid arthritis Brother Diabetes Sister Diabetes Daughter No problems noted. Social History Housing: House Alcohol intake: current Alcohol intake frequency: holidays/special occasions only Patient Tobacco Use Status: Former Tobacco user Tobacco use type: Cigarette e-Cigarette/Vaping Use: Never Used Second Hand Smoke Exposure: Yes service: No Current occupational status: disabled Cognitive needs: No Hearing needs: No Vision needs: No Questionnaire PHQ-9 Over the last 2 weeks, how often have you been bothered by any of the following problems? 1. Little interest or pleasure in doing things: not at all 2. Feeling down, depressed, or hopeless: not at all 3. Trouble falling or staying asleep, or sleeping too much: not at all 4. Feeling tired or having little energy: not at all 5. Poor appetite or overeating: not at all 6. Feeling bad about yourself - or that you are a failure or have let yourself or your family down: not at all 7. Trouble concentrating on things, such as reading the newspaper or watching television: not at all 8. Moving or speaking so slowly that other people could have noticed. Or the opposite - being so fidgety or restless that you have been moving around a lot more than usual: not at all 9. Thoughts that you would be better off or of hurting yourself in some way: not at all Total score: 0 Depression Screening Interpretation: Negative Depression Screening Done: Yes Source: Developed by Drs. Carroll Power, Rod Hernadez and colleagues, with an educational tuan from [employer]. Thrive Questionnaire Date Thrive assessed: 08/01/22 AUDIT C Alcohol Use Questionnaire (AUDIT-C) 1. How often do you have a drink containing alcohol?: 2-4 times a month 2. How many drinks containing alcohol do you have on a typical day when you are drinking?: 3 or 4 Total Score: 3 Score Reviewed/Action Taken: Yes VIKTORIA-7 AMB Questionnaire VIKTORIA-7 Date VIKTORIA - 7 assessed: 08/01/22 Source: Developed by Drs. Carroll Power, Rod Herndaez and colleagues, with an educational tuan from [employer]. Review of Systems Const Denies chills, Denies headache(s) and Denies weight loss ENT Denies headache(s) Card Denies chest pain, Denies syncope, Denies irregular heart rhythm and Denies dyspnea Resp Denies chest congestion, Denies cough and Denies dyspnea GI Denies abdominal pain, Denies change in stool character, Denies nausea and Denies vomiting Musc Denies deformity and Denies joint swelling Neuro Denies syncope and Denies headache(s) Physical exam (Primary Care) BMI result Body Mass Index 32.0 Tobacco/Smoking Status: Tobacco use Status Tobacco use date assessed 08/29/22 02/26/23 11:05 Patient Tobacco Use Status Former Tobacco user 02/26/23 11:05 Tobacco use type Cigarette 02/26/23 11:05 e-Cigarette/Vaping Use Never Used 02/26/23 11:05 PHQ-9: PHQ-9 Score PHQ-9: Total score 0 02/26/23 11:05 Depression Screening Interpretation: Negative Thrive Assessment: Date of Thrive Assessment Date Thrive assessed 08/01/22 02/26/23 11:05 Telehealth Telehealth Location of provider rendering services: practice address Location of patient: address on file Patient Identification confirmed using: Name, : Yes Telehealth method: voice only Patient verbally consented to treatment: Yes Patient verbally consented to billing insurance company: Yes Patient informed of any privacy concerns related to visit: Yes Assessment and Plan Assessment & Plan (1) Failed back syndrome: Code(s): M96.1 - Postlaminectomy syndrome, not elsewhere classified Plan: stable; same rx Medications: Refilled naproxen 500 mg PO BID PRN 60 tabs 1RF pain oxycodone 10 mg PO Q8H PRN 84 tabs 0RF pain 28 days Coding Level of Care Code Tele Est Pt Level 3 (70474) Diagnoses Failed back syndrome M96.1
== END 2023-02-26 11:52 | disposition home or self-care (01) ==
LOC: HO.HMGH 11:08
PROVIDERS: PCP Internal Medicine; Visit Provider Internal Medicine
DX: M96.1 Postlaminectomy syndrome, not elsewhere classified (principal)
CPT/HCPCS: 99213

== ENCOUNTER 2023-03-25 12:44 | Outpatient (AMB) | payer OTHER, SELFPAY ==
--- NOTE | 2023-03-25 12:34 | A.OFFPC_ITS ---
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 Allergies seasonal allergies Allergy (Unknown, Uncoded 03/25/23 12:35) Unknown Medication List - Last Reconciled 03/25/23 by Roldan Andino MD albuterol sulfate 90 mcg/actuation 2 puffs inhalation Q6H PRN 30 days etanercept (Enbrel SureClick) 50 mg subcut QWEEK fluticasone propionate 50 mcg/actuation 1 spray intranasal BID naproxen 500 mg PO BID PRN omeprazole 20 mg PO DAILY oxycodone 10 mg PO Q8H PRN 28 days sildenafil (Viagra) 50 mg PO DAILY PRN Tobacco use date assessed: 08/29/22 Dental Screening Dental Screen Date: 03/25/23 Did you have a dental visit in the last 12 months?: Yes Did you have a dental problem in the last 6 months where you did not have access to dental care?: No Was dental information given to patient?: Patient has dentist HPI Med Management HPI Details chronic back pain failed back syndrome; stable PFSH Medical History Obesity Asthma Failed back syndrome HLA-B27 spondyloarthropathy Hx of hemorrhoids Hx of osteoarthritis Family history of GERD Hx of gout History of rectal bleeding Surgical History History of arthroscopy of right knee History of inguinal hernia repair History of adenoidectomy History of lumbar surgery History of back surgery Hx of knee surgery Hx of tonsillectomy Family History Mother Pancreas cancer Diabetes Father Prostate cancer Rheumatoid arthritis Brother Diabetes Sister Diabetes Daughter No problems noted. Housing: House Alcohol intake: current Alcohol intake frequency: holidays/special occasions only Patient Tobacco Use Status: Former Tobacco user Tobacco use type: Cigarette e-Cigarette/Vaping Use: Never Used Second Hand Smoke Exposure: Yes service: No Current occupational status: disabled Cognitive needs: No Hearing needs: No Vision needs: No Questionnaire Thrive Questionnaire Date Thrive assessed: 08/01/22 VIKTORIA-7 AMB Questionnaire VIKTORIA-7 Date VIKTORIA - 7 assessed: 08/01/22 Source: Developed by Drs. Carroll Power, Chiquita Porter, Rod Branham and colleagues, with an educational tuan from [employer]. Review of Systems Const Denies chills, Denies headache(s) and Denies weight loss ENT Denies headache(s) Card Denies chest pain, Denies syncope, Denies irregular heart rhythm and Denies dyspnea Resp Denies chest congestion, Denies cough and Denies dyspnea GI Denies abdominal pain, Denies change in stool character, Denies nausea and Denies vomiting Musc Denies deformity and Denies joint swelling Neuro Denies syncope and Denies headache(s) Physical exam (Primary Care) Vital Signs: Oxygen Delivery Method Room Air 03/25/23 12:35 BMI result Body Mass Index 32.1 Tobacco/Smoking Status: Tobacco use Status Tobacco use date assessed 08/29/22 03/25/23 12:36 Patient Tobacco Use Status Former Tobacco user 03/25/23 12:36 Tobacco use type Cigarette 03/25/23 12:36 e-Cigarette/Vaping Use Never Used 03/25/23 12:36 Thrive Assessment: Date of Thrive Assessment Date Thrive assessed 08/01/22 03/25/23 12:36 Telehealth Telehealth Location of provider rendering services: practice address Location of patient: address on file Patient Identification confirmed using: Name, : Yes Telehealth method: voice only Patient verbally consented to treatment: Yes Patient verbally consented to billing insurance company: Yes Patient informed of any privacy concerns related to visit: Yes Minutes spent on Phone/Video with Pt.: 15 (telephone) Assessment and Plan Assessment & Plan (1) Failed back syndrome: Comment: stable; same rx Code(s): M96.1 - Postlaminectomy syndrome, not elsewhere classified Medications: Refilled naproxen 500 mg PO BID PRN 60 tabs 8RF pain oxycodone 10 mg PO Q8H 28 days PRN 84 tabs 0RF pain Coding Level of Care Code Tele Est Pt Level 3 (37890) Diagnoses Failed back syndrome M96.1
[2023-03-25 12:35] VITALS: BMI 32.1
== END 2023-03-25 14:04 | disposition home or self-care (01) ==
LOC: HO.HMGH 12:44
PROVIDERS: PCP Internal Medicine; Visit Provider Internal Medicine
DX: M96.1 Postlaminectomy syndrome, not elsewhere classified (principal)
CPT/HCPCS: 99213

== ENCOUNTER 2023-04-22 10:33 | Outpatient (AMB) | payer OTHER, SELFPAY ==
--- NOTE | 2023-04-22 10:34 | A.OFFPC_ITS ---
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 Frame Operator: Not Required per policy Accompanied by: Self / Same As Patient Allergies seasonal allergies Allergy (Unknown, Uncoded 04/22/23 10:35) Unknown Medication List - Last Reconciled 04/22/23 by Roldan Andino MD albuterol sulfate 90 mcg/actuation 2 puffs inhalation Q6H PRN 30 days etanercept (Enbrel SureClick) 50 mg subcut QWEEK fluticasone propionate 50 mcg/actuation 1 spray intranasal BID naproxen 500 mg PO BID PRN omeprazole 20 mg PO DAILY oxycodone 10 mg PO Q8H PRN 28 days sildenafil (Viagra) 50 mg PO DAILY PRN Tobacco use date assessed: 08/29/22 Dental Screening Dental Screen Date: 04/22/23 Did you have a dental visit in the last 12 months?: Yes Did you have a dental problem in the last 6 months where you did not have access to dental care?: No Was dental information given to patient?: Patient has dentist HPI Annual Exam HPI Details asthma and failed back syndrome; doing well [facility] Medical History (Updated 04/22/23 @ 11:08 by Roldan Andino MD) Obesity Asthma Failed back syndrome HLA-B27 spondyloarthropathy Hx of hemorrhoids Hx of osteoarthritis Family history of GERD Hx of gout History of rectal bleeding Surgical History History of arthroscopy of right knee History of inguinal hernia repair History of adenoidectomy History of lumbar surgery History of back surgery Hx of knee surgery Hx of tonsillectomy Family History Mother Pancreas cancer Diabetes Father Prostate cancer Rheumatoid arthritis Brother Diabetes Sister Diabetes Daughter No problems noted. Social History Housing: House Alcohol intake: current Alcohol intake frequency: holidays/special occasions only Patient Tobacco Use Status: Former Tobacco user Tobacco use type: Cigarette e-Cigarette/Vaping Use: Never Used Second Hand Smoke Exposure: Yes service: No Current occupational status: disabled Cognitive needs: No Hearing needs: No Vision needs: No Questionnaire Thrive Questionnaire Date Thrive assessed: 08/01/22 VIKTORIA-7 AMB Questionnaire VIKTORIA-7 Date VIKTORIA - 7 assessed: 08/01/22 Source: Developed by Drs. Carroll Power, Chiquita Porter, Rod Branham and colleagues, with an educational tuan from [employer] Review of Systems Const Denies chills, Denies fatigue, Denies headache(s) and Denies weight loss Eyes Denies change in vision, Denies diplopia and Denies eye pain ENT Denies vertigo, Denies dizziness, Denies headache(s) and Denies nasal discharge Card Denies chest pain, Denies rapid heart rate and Denies dyspnea on exertion Resp Denies chest congestion, Denies cough, Denies pain with cough and Denies dyspnea on exertion GI Denies abdominal pain, Denies hematochezia and Denies change in bowel habits Musc Denies myalgias, Denies arthralgias and Denies joint swelling Skin/Breast Denies lesions and Denies unusual bruising Neuro Denies vertigo, Denies dizziness, Denies headache(s) and Denies focal weakness Endo Denies fatigue Physical exam (Primary Care) Vital Signs: Last Vital Signs Pulse 71 04/22/23 10:35 BP 124/68 04/22/23 10:35 Pulse Ox 98 04/22/23 10:35 Oxygen Delivery Method Room Air 04/22/23 10:35 BMI result Body Mass Index 32.3 Tobacco/Smoking Status: Tobacco use Status Tobacco use date assessed 08/29/22 04/22/23 10:38 Patient Tobacco Use Status Former Tobacco user 04/22/23 10:38 Tobacco use type Cigarette 04/22/23 10:38 e-Cigarette/Vaping Use Never Used 04/22/23 10:38 Thrive Assessment: Date of Thrive Assessment Date Thrive assessed 08/01/22 04/22/23 10:38 Const General: cooperative, healthy appearing and no acute distress Orientation/consciousness: oriented to person, oriented to place and oriented to time HENMT Head: Yes normal to inspection, Yes normocephalic and Yes atraumatic Mouth: Normal oral and palatal mucosa present and tongue normal Throat: Yes posterior oropharynx normal and Yes uvula midline Eyes General: appearance normal, both eyes and all related structures Neck Neck: Yes normal visual inspection, Yes full ROM and Yes no lymphadenopathy Thyroid: Thyroid normal Carotids: normal carotid upstroke Chest Chest palpation & inspection: normal inspection of the chest Resp Effort & Inspection: normal respiratory effort and able to speak in complete sentences Auscultation: clear to auscultation bilaterally Cardio Jugular venous distension: no JVD Palpation: normal PMI Rate: regular rate Rhythm: regular rhythm Heart sounds: S1 normal heart sound present and S2 normal heart sound present GI Inspection: Yes normal to inspection Palpation (GI): Soft to palpation and No hepatosplenomegaly present Auscultation: normal bowel sounds General: Yes no CVA tenderness Back/Spine/Pelvis Back: no CVA tenderness Skin General skin exam: no rashes or lesions noted Neuro General: oriented to person, oriented to place and oriented to time Extrem General: Yes normal to inspection and Yes full ROM Assessment and Plan Assessment & Plan (1) Physical exam: Code(s): Z00.00 - Encounter for general adult medical examination without abnormal findings Plan: stable; do labs (2) Failed back syndrome: Code(s): M96.1 - Postlaminectomy syndrome, not elsewhere classified Plan: same rx; compliant (3) Asthma: Code(s): J45.909 - Unspecified asthma, uncomplicated Plan: same rx Orders: Orders Lipid Panel Today E78.5 - Hyperlipidemia, unspecified Comprehensive [place]. Panel Fast Today N28.9 - Disorder of kidney and ureter, unspecified Complete Blood Count Auto Diff Today D64.9 - Anemia, unspecified Medications: Refilled oxycodone 10 mg PO Q8H PRN 84 tabs 0RF pain 28 days Coding Level of Care Code Est Pt Prev Care 40-64y(41709) Diagnoses Physical exam Z00.00 Failed back syndrome M96.1 Asthma J45.909
[2023-04-22 10:35] VITALS: BP 124/68; PULSE 71; O2SAT 98; BMI 32.3
== END 2023-04-22 11:06 | disposition home or self-care (01) ==
PROVIDERS: PCP Internal Medicine; Visit Provider Internal Medicine
DX: Z00.00 Encounter for general adult medical examination without abnormal findings (principal); M96.1 Postlaminectomy syndrome, not elsewhere classified; J45.909 Unspecified asthma, uncomplicated; Z68.32 Body mass index [BMI] 32.0-32.9, adult
CPT/HCPCS: 99396

== ENCOUNTER 2023-04-22 15:35 | Outpatient (AMB) | payer OTHER, SELFPAY ==
--- NOTE | 2023-04-22 15:38 | A.OFFVIS_ITS ---
Intake Vital Signs 04/22/23 15:39 Height 6 ft Weight 240 lb 8.389 oz BMI 32.6 BP 140/70 H Blood Pressure Location Rt brachial Position Sitting Pulse 85 Pulse Source Pulse Oximeter Temp 97 F Temp Source Skin Pulse Oximetry (%) 97 Oxygen Delivery Method Room Air 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: spondyloarthropathy Intake Note: Pt last seen by Jaqui on 07/25/22, presents today for follow up. Continues taking Enbrel. c/o right hip pain and low back pain x 2 months Supervisor Coffee Required: No Accompanied by: Self / Same As Patient Allergies seasonal allergies Allergy (Unknown, Uncoded 04/22/23 15:42) Unknown Medication List - Last Reconciled 04/22/23 by Kodak Gay MD albuterol sulfate 90 mcg/actuation 2 puffs inhalation Q6H PRN 30 days etanercept (Enbrel SureClick) 50 mg subcut QWEEK fluticasone propionate 50 mcg/actuation 1 spray intranasal BID naproxen 500 mg PO BID PRN omeprazole 20 mg PO DAILY oxycodone 10 mg PO Q8H PRN 28 days sildenafil (Viagra) 50 mg PO DAILY PRN HPI HPI Comments History of Present Illness Details 58 yoM presents for follow-up on HLA B27 positive spondyloarthropathy. Last seen by Kari Deal 07/24 On Enbrel and tolerating it well. Patient states that for the last 2 months or so he has been having increased pain in his right lower back, right buttock and right thigh. He believes that the Enbrel is still helping. He takes naproxen once or twice a week. [facility] Medical History Obesity Asthma Failed back syndrome HLA-B27 spondyloarthropathy Hx of hemorrhoids Hx of osteoarthritis Family history of GERD Hx of gout History of rectal bleeding Surgical History History of arthroscopy of right knee History of inguinal hernia repair History of adenoidectomy History of lumbar surgery History of back surgery Hx of knee surgery Hx of tonsillectomy Family History Mother Pancreas cancer Diabetes Father Prostate cancer Rheumatoid arthritis Brother Diabetes Sister Diabetes Daughter No problems noted. Social History Housing: House Alcohol intake: current Alcohol intake frequency: holidays/special occasions only Patient Tobacco Use Status: Former Tobacco user Tobacco use type: Cigarette e-Cigarette/Vaping Use: Never Used Second Hand Smoke Exposure: Yes service: No Current occupational status: disabled Cognitive needs: No Hearing needs: No Vision needs: No Review of Systems Musc Reports back pain and Reports stiffness Physical Exam Vital Signs: Last Vital Signs Temp 97 F 04/22/23 15:39 Pulse 85 04/22/23 15:39 BP 140/70 H 04/22/23 15:39 Pulse Ox 97 04/22/23 15:39 Oxygen Delivery Method Room Air 04/22/23 15:39 BMI result Body Mass Index 32.6 Const General: cooperative, healthy appearing and comfortable Nutritional Appearance: obese Orientation/consciousness: patient oriented x3 Limitations: no limitations HEENT Head: Yes normocephalic and Yes atraumatic Mouth: moist mucous membranes Resp Effort & Inspection: normal respiratory effort and able to speak in complete sentences Auscultation: clear to auscultation bilaterally Cardio Rate: regular rate Rhythm: regular rhythm GI Inspection: No distended Palpation (GI): Soft to palpation and nontender Skin General skin exam: no rashes or lesions noted Neuro General: patient oriented x3 Extrem Other: No active peripheral synovitis Luh test 10-14 cm Limited lateral flexion test bilaterally Fabere test bilaterally produces right SI joint area tenderness Right lower back and right buttock tenderness to palpation No nail pitting Results Reviewed Results Reviewed: Laboratory Tests Ordering Physician: Jaqui Deal NP Date of Service: 06/27/22 Procedure(s): XR lumbar spine 2-3V Accession Number(s): [id number] cc: Jaqui Deal NP~ EXAMINATION: XR LUMBOSACRAL SPINE CLINICAL INFORMATION: M54.50 - Low back pain, unspecified COMPARISON: Lumbar radiographs 04/29/2011 TECHNIQUE: Three views of the lumbosacral spine. FINDINGS: There is normal lumbar segmentation with 5 nonrib-bearing lumbar vertebrae of normal height and normal lumbar lordosis. There are postsurgical changes with anterior lumbosacral fusion L5-S1 and disc spacer, and metallic plate between posterior spinous processes L3-L4. Hardware is intact. No destructive process or osteolysis. There is no vertebral compression there are anterior bridging osteophytes at L1-L2. There is a borderline grade 0-1 spondylolisthesis at L3-L4 mild degenerative changes SI joints. Sacrum are unremarkable. XR/XR lumbar spine 2-3V IMPRESSION: 1. Postsurgical changes. Hardware intact. No destructive process or osteolysis. 2. Borderline grade 0-1 spondylolisthesis L3-L4. 3. Bridging anterior osteophytes L1-L2. Ordering Physician: Jaqui Deal NP Date of Service: 06/27/22 Procedure(s): XR hip RT min 2V Accession Number(s): [id number] cc: Jaqui Deal NP~ EXAMINATION: XR HIP, RIGHT XR HIP, LEFT CLINICAL INFORMATION: Hip pain.? COMPARISON: Pelvis and right hip radiographs 08/26/2017.? TECHNIQUE: Each hip is imaged in AP and frog-lateral projections. There are a total of 4 views, 2 on each side.? FINDINGS: Normal bony mineralization. No fracture, dislocation, or destructive process. The hips show no focal joint narrowing or erosive change or chondrocalcinosis. Soft tissue planes appear symmetric. No diastases SI joints or pubis. There is mild bilateral lateral whiskering of the iliac crests similar to prior radiograph 2018. Hardware again noted lumbosacral spine.? XR/XR hip RT min 2V IMPRESSION: Unremarkable bilateral hips. ? Assessment & Plan Assessment & Plan (1) HLA-B27 spondyloarthropathy: Comment: Enbrel: April 2017- present. Code(s): M47.899 - Other spondylosis, site unspecified Plan: Patient had 4 years of recurrent knee swelling, shoulder and back pain. His back pain started before age 39. Pain alternated down each buttock, woke him up in the second half of the night and was worse in morning. Inflammatory markers were elevated. On Enbrel. Since 2014 with significant improvement. Over the last 2 months however patient has been having increased right buttock, right hip and right lower back pain. On exam he has positive CLAUDIA test Will check inflammatory markers and repeat bilateral SI joint x-rays. If there are signs of worsening, will consider changing his Enbrel. Follow-up in 1 month Plan I spent 26 minutes reviewing patient's chart, evaluating patient, ordering diagnostic workup, counseling patient and documenting in the chart Orders: Orders Hepatitis A,B,C Profile Today Z11.59 - Encounter for screening for other viral diseases Comprehensive Met. Panel Today M47.899 - Other spondylosis, site unspecified C Reactive Protein Today M47.899 - Other spondylosis, site unspecified Erythrocyte Sedimentation Rate Today M47.899 - Other spondylosis, site unspecified T Spot TB Today Z11.7 - Encounter for testing for latent tuberculosis infection Immunofixation Pnl, Serum Today M47.899 - Other spondylosis, site unspecified XR sacroiliac joint min 3V Today M47.899 - Other spondylosis, site unspecified Coding Level of Care Code Est Pt Level 4 (99195) Diagnoses HLA-B27 spondyloarthropathy M47.89
[2023-04-22 15:39] VITALS: BP 140/70; PULSE 85; TEMP 36.1; O2SAT 97; BMI 32.6
== END 2023-04-22 15:59 | disposition home or self-care (01) ==
PROVIDERS: PCP Internal Medicine; Visit Provider Student in an Organized Health Care Education/Training Program
DX: M47.899 Other spondylosis, site unspecified (principal)
CPT/HCPCS: 99214

== ENCOUNTER → 2023-04-22 15:35 | Outpatient (BNVA) | payer OTHER, SELFPAY | PROVIDERS: PCP Internal Medicine; Visit Provider Student in an Organized Health Care Education/Training Program | DX: M47.899 Other spondylosis, site unspecified (principal) | CPT/HCPCS: 99212 ==

== ENCOUNTER 2023-05-14 08:00 | Outpatient (REF) | payer OTHER, SELFPAY ==
[2023-05-14 08:18] LABS: MANUAL DIFF FLAG NO
[2023-05-14 08:36] LABS: Basophils Percent Auto 0.2 % (0-2); Eosinophils Absolute Auto 0.2 X10*3/uL (0.0-0.4); Eosinophils Percent Auto 3.8 % (0-4); Hematocrit 43.1 % (42.0-52.0); Hemoglobin 14.3 g/dl (14.0-18.0); Imm Gran Abs Auto 0.02 X10*3/uL (0.00-0.03); Imm Gran Pct Auto 0.3 % (0.0-0.4); Lymphocytes Absolute Auto 2.4 X10*3/uL (1.2-4.9); Lymphocytes Percent Auto 37.1 % (20-40); Mean Corpuscular HGB Conc 33.2 g/dl (31.0-36.0); Mean Corpuscular Hemoglobin 28.7 pg (27.0-33.0); Mean Corpuscular Volume 86.5 fL (80.0-98.0); Mean Platelet Volume 9.2 fL (9.4-12.4); Monocytes Absolute Auto 0.3 X10*3/uL (0.1-1.2); Monocytes Percent Auto 4.9 % (2-11); Neutrophils Absolute Auto 3.4 x10*3/uL (2.0-8.3); Neutrophils Percent Auto 53.7 % (45-73); Platelet Count 212 X10*3/uL (160-400); Red Blood Count 4.98 X10*6/uL (4.60-5.80); Red Cell Distribution Width 12.8 % (11.0-16.0); White Blood Count 6.3 X10*3/uL (4.8-10.8)
[2023-05-14 09:13] LABS: Alanine Aminotransferase 13 U/L (0-40); Alkaline Phosphatase 78 U/L (39-117); Anion Gap 12 (12-20); Aspartate Amino Transferase 19 U/L (5-37); Bilirubin Total 0.4 mg/dL (0.0-1.0); Blood Urea Nitrogen 17 mg/dL (9-16); C Reactive Protein 0.74 mg/dL (< or = 0.50); Calcium 9.3 mg/dL (8.4-10.2); Carbon Dioxide 26 mmol/L (22-29); Chloride 106 mmol/L (96-108); Cholesterol 182 mg/dL (<200); Erythrocyte Sedimentation Rate 21 MM/HR (0-15); Estimated Glomerular Filt Rate > 60; Glucose Fasting 99 mg/dL (60-99); Glucose Random 100 mg/dL (60-115); HDL Cholesterol 49 mg/dL (>40); LDL Cholesterol Calculated 112 mg/dL (<100); Potassium 4.4 mmol/L (3.3-5.1); Sodium 140 mmol/L (135-145); Total Protein 7.4 g/dL (6.5-8.0); Triglycerides 109 mg/dL (<150)
[2023-05-14 09:25] LABS: HBc Num1 0.09 S/CO (0.00-0.79); HBsAGNum1 0.29 S/CO (0.00-0.99); Hepatitis A Antibody IgM 0.13 Index (0-0.79); Hepatitis B Core Antibody Nonreactive (Nonreactive); Hepatitis B Surface Antigen Negative (Negative); ~HepC Num1 0.25 S/CO (0.00-0.79); ~Hepatitis A Antibody IgM Nonreactive (Nonreactive); ~Hepatitis C Antibody Nonreactive (Nonreactive)
[2023-05-14 10:40] LABS: HBS Num2 9.05 mIU/mL (0-7.99); HBS Num3 9.56 mIU/mL (0-7.99); ~Hepatitis B Surface Antibody GRAYZONE (Nonreactive)
[2023-05-16 21:32] LABS: TS Negative Control Passed; TS Panel A 0; TS Panel B 0; TS Positive Control Passed; TSpotTB Negative (Negative)
[2023-05-20 12:54] LABS: IgA 363 mg/dL (47-310); IgG 1160 mg/dL (600-1640); IgM 47 mg/dL (50-300)
== END 2023-05-14 08:01 | disposition home or self-care (01) ==
LOC: HO.LAB 08:00
PROVIDERS: PCP Internal Medicine; Referring Provider Internal Medicine; Visit Provider Student in an Organized Health Care Education/Training Program
DX: E78.5 Hyperlipidemia, unspecified (principal); M47.899 Other spondylosis, site unspecified; N28.9 Disorder of kidney and ureter, unspecified; D64.9 Anemia, unspecified; Z11.7 Encounter for testing for latent tuberculosis infection; Z11.59 Encounter for screening for other viral diseases
CPT/HCPCS: 36415; 80053; 80061; 82784; 85025; 85652; 86140; 86334; 86481; 86704; 86706; 86709; 86803; 87340

== ENCOUNTER 2023-05-20 09:56 | Outpatient (REF) | payer OTHER, SELFPAY ==
--- NOTE | ~2023-05-20 | XR_ITS ---
EXAMINATION: XR SACROILIAC JOINTS CLINICAL INFORMATION: Spondylosis. COMPARISON: Prior radiographs, most recently 06/27/2022. TECHNIQUE: AP and bilateral Judet views of the sacroiliac joints FINDINGS: Bony alignment and mineralization are normal. The bilateral sacral iliac joints are symmetric and well-maintained. No ankylosis or erosive change is noted The pubic symphysis is intact. The hip joints are well-maintained. There is lumbosacral orthopedic hardware. XR/XR sacroiliac joint min 3V IMPRESSION: Normal sacroiliac joints.
== END 2023-05-20 09:57 | disposition home or self-care (01) ==
LOC: HO.XRAY 09:56
PROVIDERS: PCP Internal Medicine; Visit Provider Student in an Organized Health Care Education/Training Program
DX: M47.899 Other spondylosis, site unspecified (principal)
CPT/HCPCS: 72202

== ENCOUNTER 2023-05-20 11:10 | Outpatient (AMB) | payer OTHER, SELFPAY ==
[2023-05-20 11:13] VITALS: BP 120/70; PULSE 79; O2SAT 98; BMI 32.3
--- NOTE | 2023-05-20 11:13 | MHC.PC.OV ---
Vital Signs 05/20/23 11:13 Height 6 ft Weight 238 lb BMI 32.3 BP 120/70 Blood Pressure Location Lt brachial Position Sitting Pulse 79 Pulse Source Pulse Oximeter Pulse Oximetry (%) 98 Oxygen Delivery Method Room Air 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: Med Management Glass Loading Equipment Tender Required: No Manager Ambulatory: Not Required per policy Accompanied by: Self / Same As Patient Allergies seasonal allergies Allergy (Unknown, Uncoded 05/20/23 11:14) Unknown Medication List - Last Reconciled 05/20/23 by Roldan Andino MD albuterol sulfate 90 mcg/actuation 2 puffs inhalation Q6H PRN 30 days etanercept (Enbrel SureClick) 50 mg subcut QWEEK fluticasone propionate 50 mcg/actuation 1 spray intranasal BID naproxen 500 mg PO BID PRN omeprazole 20 mg PO DAILY oxycodone 10 mg PO Q8H PRN 28 days sildenafil (Viagra) 50 mg PO DAILY PRN Tobacco use date assessed: 05/20/23 Dental Screening Dental Screen Date: 05/20/23 Did you have a dental visit in the last 12 months?: Yes Did you have a dental problem in the last 6 months where you did not have access to dental care?: No Was dental information given to patient?: Patient has dentist HPI Med Management HPI Details f/u chronic back 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 Social History Housing: House Alcohol intake: current Alcohol intake frequency: holidays/special occasions only Patient Tobacco Use Status: Former Tobacco user Tobacco use type: Cigarette e-Cigarette/Vaping Use: Never Used Second Hand Smoke Exposure: Yes service: No Current occupational status: disabled Cognitive needs: No Hearing needs: No Vision needs: No Questionnaire Thrive Questionnaire Date Thrive assessed: 05/20/23 I am a: Patient What is your living situation today?: I have a steady place to live Within the past 12 months, did the food you bought not last and you didn't have the money to get more?: Never true Within the past 12 months, did you worry whether your food would run out before you got money to buy more?: Never true Do you have trouble paying for medicines?: No Do you have trouble getting transportation to medical appointments?: No Do you have trouble paying your heating and electricity bill?: No Do you have trouble taking care of your child, family member or friend?: No Do you have trouble with day-to-day activities such as bathing, preparing meals, shopping, managing finances, etc.?: No Are you currently unemployed and looking for a job?: No Are you interested in more education?: No Please select the resources that you would like help with: None AUDIT C Alcohol Use Questionnaire (AUDIT-C) 1. How often do you have a drink containing alcohol?: 2-4 times a month 2. How many drinks containing alcohol do you have on a typical day when you are drinking?: 3 or 4 Total Score: 3 Score Reviewed/Action Taken: Yes VIKTORIA-7 AMB Questionnaire VIKTORIA-7 Date VIKTORIA - 7 assessed: 05/20/23 Feeling nervous, anxious, or on edge: 0 = Not at all Not being able to stop or control worryin = Not at all Worrying too much about different things: 0 = Not at all Trouble relaxin = Not at all Being so restless that it is hard to sit still: 0 = Not at all Becoming easily annoyed or irritable: 0 = Not at all Feeling afraid as if something awful might happen: 0 = Not at all Total VIKTORIA-7 score (0-4 normal; 5-9 mild; 10-14 moderate; 15-21 severe): 0 Source: Developed by Drs. Carroll Power, Chiquita Porter, Rod Branham and colleagues, with an educational tuan from [employer]. Review of Systems Const Denies chills, Denies headache(s) and Denies weight loss ENT Denies headache(s) Card Denies chest pain, Denies syncope, Denies irregular heart rhythm and Denies dyspnea Resp Denies chest congestion, Denies cough and Denies dyspnea GI Denies abdominal pain, Denies change in stool character, Denies nausea and Denies vomiting Musc Denies deformity and Denies joint swelling Neuro Denies syncope and Denies headache(s) Physical exam (Primary Care) Vital Signs: Last Vital Signs Pulse 79 05/20/23 11:13 BP 120/70 05/20/23 11:13 Pulse Ox 98 05/20/23 11:13 Oxygen Delivery Method Room Air 05/20/23 11:13 BMI result Body Mass Index 32.3 Tobacco/Smoking Status: Tobacco use Status Tobacco use date assessed 05/20/23 05/20/23 11:15 Patient Tobacco Use Status Former Tobacco user 05/20/23 11:15 Tobacco use type Cigarette 05/20/23 11:15 e-Cigarette/Vaping Use Never Used 05/20/23 11:15 Thrive Assessment: Date of Thrive Assessment Date Thrive assessed 05/20/23 05/20/23 11:15 Const General: cooperative, comfortable, no acute distress and alert Neck Neck: Yes no lymphadenopathy Thyroid: Thyroid normal Resp Effort & Inspection: normal respiratory effort Auscultation: clear to auscultation bilaterally Percussion: percussion normal Cardio Jugular venous distension: no JVD Palpation: normal PMI Rate: regular rate Rhythm: regular rhythm Heart sounds: S1 normal heart sound present and S2 normal heart sound present GI Inspection: Yes normal to inspection Palpation (GI): No hepatosplenomegaly present Skin General skin exam: no rashes or lesions noted Extrem General: Yes no clubbing, cyanosis or edema Assessment and Plan Assessment & Plan (1) Failed back syndrome: Code(s): M96.1 - Postlaminectomy syndrome, not elsewhere classified Plan: stable; same rx Medications: Refilled oxycodone 10 mg PO Q8H PRN 84 tabs 0RF pain 28 days Coding Level of Care Code Est Pt Level 3 (64282) Diagnoses Failed back syndrome M96.1
== END 2023-05-20 11:40 | disposition home or self-care (01) ==
PROVIDERS: PCP Internal Medicine; Visit Provider Internal Medicine
DX: M96.1 Postlaminectomy syndrome, not elsewhere classified (principal)
CPT/HCPCS: 99213

== ENCOUNTER 2023-06-03 09:43 | Outpatient (AMB) | payer OTHER, SELFPAY ==
--- NOTE | 2023-06-03 10:08 | A.OFFVIS_ITS ---
Intake Vital Signs 06/03/23 10:09 Height 6 ft Weight 240 lb 8.389 oz BMI 32.6 BP 100/80 Blood Pressure Location Rt brachial Position Sitting Pulse 87 Pulse Source Pulse Oximeter Temp 97 F Temp Source Skin Pulse Oximetry (%) 97 Oxygen Delivery Method Room Air 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: AxSpA Intake Note: Patient last seen 04/22/23 presents today for follow up and test results. Reports seeing [facility] ED last week due to possible reaction to food/medication. Records requested. Insurance Customer Service Specialist Required: No Accompanied by: Self / Same As Patient Allergies naproxen Allergy (Severe, Verified 06/03/23 10:16) Anaphylaxis seasonal allergies Allergy (Unknown, Uncoded 06/03/23 10:11) Unknown Medication List - Last Reconciled 06/03/23 by Kodak Gay MD albuterol sulfate 90 mcg/actuation 2 puffs inhalation Q6H PRN 30 days fluticasone propionate 50 mcg/actuation 1 spray intranasal BID omeprazole 20 mg PO DAILY oxycodone 10 mg PO Q8H PRN 28 days sildenafil (Viagra) 50 mg PO DAILY PRN HPI HPI Comments History of Present Illness Details 58 yoM presents for follow-up on HLA B27 positive spondyloarthropathy. Patient states that last week he did some work around the house and was having pain at the sole of his left big foot. He took naproxen and got an allergic reaction afterwards. He was rushed to [facility] ED and received EpiPen for an allergic reaction. We will request records. He states that he has been taking naproxen for years without any allergic side effects. He continues to have the same right lower back, right buttock pain. That he has been having since last visit. His last Enbrel dose was last Thursday [facility] Medical History Obesity Asthma Failed back syndrome HLA-B27 spondyloarthropathy Hx of hemorrhoids Hx of osteoarthritis Family history of GERD Hx of gout History of rectal bleeding Surgical History History of arthroscopy of right knee History of inguinal hernia repair History of adenoidectomy History of lumbar surgery History of back surgery Hx of knee surgery Hx of tonsillectomy Family History Mother Pancreas cancer Diabetes Father Prostate cancer Rheumatoid arthritis Brother Diabetes Sister Diabetes Daughter No problems noted. Social History Housing: House Alcohol intake: current Alcohol intake frequency: holidays/special occasions only Patient Tobacco Use Status: Former Tobacco user Tobacco use type: Cigarette e-Cigarette/Vaping Use: Never Used Second Hand Smoke Exposure: Yes service: No Current occupational status: disabled Cognitive needs: No Hearing needs: No Vision needs: No Review of Systems Musc Reports back pain and Reports stiffness Physical Exam Vital Signs: Last Vital Signs Temp 97 F 06/03/23 10:09 Pulse 87 06/03/23 10:09 BP 100/80 06/03/23 10:09 Pulse Ox 97 06/03/23 10:09 Oxygen Delivery Method Room Air 06/03/23 10:09 BMI result Body Mass Index 32.6 Const General: cooperative, healthy appearing and comfortable Nutritional Appearance: obese Orientation/consciousness: patient oriented x3 Limitations: no limitations HEENT Head: Yes normocephalic and Yes atraumatic Mouth: moist mucous membranes Resp Effort & Inspection: normal respiratory effort and able to speak in complete sentences Cardio Rate: regular rate Rhythm: regular rhythm GI Inspection: No distended Palpation (GI): Soft to palpation and nontender Skin General skin exam: no rashes or lesions noted Neuro General: patient oriented x3 Extrem Other: No active peripheral synovitis Luh test 10-14 cm Limited lateral flexion test bilaterally Fabere test bilaterally produces right SI joint area tenderness Right lower back and right buttock tenderness to palpation No nail pitting Results Reviewed Results Reviewed: Laboratory Tests Ordering Physician: Jaqui Deal NP Date of Service: 06/27/22 Procedure(s): XR lumbar spine 2-3V Accession Number(s): [id number] cc: Jaqui Deal NP~ EXAMINATION: XR LUMBOSACRAL SPINE CLINICAL INFORMATION: M54.50 - Low back pain, unspecified COMPARISON: Lumbar radiographs 04/29/2011 TECHNIQUE: Three views of the lumbosacral spine. FINDINGS: There is normal lumbar segmentation with 5 nonrib-bearing lumbar vertebrae of normal height and normal lumbar lordosis. There are postsurgical changes with anterior lumbosacral fusion L5-S1 and disc spacer, and metallic plate between posterior spinous processes L3-L4. Hardware is intact. No destructive process or osteolysis. There is no vertebral compression there are anterior bridging osteophytes at L1-L2. There is a borderline grade 0-1 spondylolisthesis at L3-L4 mild degenerative changes SI joints. Sacrum are unremarkable. XR/XR lumbar spine 2-3V IMPRESSION: 1. Postsurgical changes. Hardware intact. No destructive process or osteolysis. 2. Borderline grade 0-1 spondylolisthesis L3-L4. 3. Bridging anterior osteophytes L1-L2. Ordering Physician: Jaqui Deal NP Date of Service: 06/27/22 Procedure(s): XR hip RT min 2V Accession Number(s): [id number] cc: Jaqui Deal NP~ EXAMINATION: XR HIP, RIGHT XR HIP, LEFT CLINICAL INFORMATION: Hip pain.? COMPARISON: Pelvis and right hip radiographs 08/26/2017.? TECHNIQUE: Each hip is imaged in AP and frog-lateral projections. There are a total of 4 views, 2 on each side.? FINDINGS: Normal bony mineralization. No fracture, dislocation, or destructive process. The hips show no focal joint narrowing or erosive change or chondrocalcinosis. Soft tissue planes appear symmetric. No diastases SI joints or pubis. There is mild bilateral lateral whiskering of the iliac crests similar to prior radiograph 2018. Hardware again noted lumbosacral spine.? XR/XR hip RT min 2V IMPRESSION: Unremarkable bilateral hips. ? Assessment & Plan Assessment & Plan (1) HLA-B27 spondyloarthropathy: Comment: Enbrel: April 2017- present. Code(s): M47.899 - Other spondylosis, site unspecified Plan: 58-year-old male with HLA B27 non radiographic axial spa returns for follow-up. Initial history: Patient had 4 years of recurrent knee swelling, shoulder and back pain. His back pain started before age 39. Pain alternated down each buttock, woke him up in the second half of the night and was worse in morning. Inflammatory markers were elevated . Patient has been on Enbrel since 2014 with significant improvement.. However over the last 2-3 months he has been having worsening right lower back pain, r ight buttock pain. On exam he has right buttock tenderness, positive CLAUDIA test and elevated inflammatory markers. Likely Enbrel is losing effectiveness. Will need to switch DMARDs. Discussed risks and benefits of Humira. Patient agreed to proceed. 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 Patient aware of side effects and agrees to proceed Plan I spent 26 minutes reviewing patient's chart, evaluating patient, ordering diagnostic workup, counseling patient and documenting in the chart Orders: Orders Complete Blood Count Auto Diff 3 Months M47.89 - Other spondylosis, site unspecified C Reactive Protein 3 Months M47.89 - Other spondylosis, site unspecified Erythrocyte Sedimentation Rate 3 Months M47.89 - Other spondylosis, site unspecified Comprehensive Met. Panel 3 Months M4.89 - Other spondylosis, site unspecified Coding Level of Care Code Est Pt Level 4 (99912) Diagnoses HLA-B27 spondyloarthropathy M47.89 High risk medication use Z79.899
[2023-06-03 10:09] VITALS: BP 100/80; PULSE 87; TEMP 36.1; O2SAT 97; BMI 32.6
== END 2023-06-03 10:34 | disposition home or self-care (01) ==
PROVIDERS: PCP Internal Medicine; Visit Provider Student in an Organized Health Care Education/Training Program
DX: M47.899 Other spondylosis, site unspecified (principal); Z79.899 Other long term (current) drug therapy
CPT/HCPCS: 99214

== ENCOUNTER → 2023-06-03 09:43 | Outpatient (BNVA) | payer OTHER, SELFPAY | PROVIDERS: PCP Internal Medicine; Visit Provider Student in an Organized Health Care Education/Training Program | DX: M47.899 Other spondylosis, site unspecified (principal); Z79.899 Other long term (current) drug therapy | CPT/HCPCS: 99212 ==

== ENCOUNTER 2023-06-17 11:46 | Outpatient (AMB) | payer OTHER, SELFPAY ==
--- NOTE | 2023-06-17 11:47 | MHC.PC.OV ---
Vital Signs 06/17/23 11:48 Height 6 ft Weight 240 lb BMI 32.5 BP 130/80 Blood Pressure Location Lt brachial Position Sitting Pulse 98 Pulse Source Pulse Oximeter Pulse Oximetry (%) 76 L Oxygen Delivery Method Room Air 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: Med Management Miscellaneous Machine Operator Required: No Superior Court Justice: Not Required per policy Accompanied by: Self / Same As Patient Allergies naproxen Allergy (Severe, Verified 06/17/23 11:48) Anaphylaxis seasonal allergies Allergy (Unknown, Uncoded 06/17/23 11:48) Unknown Medication List - Last Reconciled 06/17/23 by Roldan Andino MD adalimumab (Humira(CF) Pen) inject one - 40 mg/0.4 mL pen every 2 weeks subcut albuterol sulfate 90 mcg/actuation 2 puffs inhalation Q6H PRN 30 days fluticasone propionate 50 mcg/actuation 1 spray intranasal BID omeprazole 20 mg PO DAILY oxycodone 10 mg PO Q8H PRN 28 days sildenafil (Viagra) 50 mg PO DAILY PRN Tobacco use date assessed: 05/20/23 HPI Med Management HPI Details failed back syndrome; stable on rx; compliant PFSH Medical History Obesity Asthma Failed back syndrome HLA-B27 spondyloarthropathy Hx of hemorrhoids Hx of osteoarthritis Family history of GERD Hx of gout History of rectal bleeding Surgical History History of arthroscopy of right knee History of inguinal hernia repair History of adenoidectomy History of lumbar surgery History of back surgery Hx of knee surgery Hx of tonsillectomy Family History Mother Pancreas cancer Diabetes Father Prostate cancer Rheumatoid arthritis Brother Diabetes Sister Diabetes Daughter No problems noted. Social History Housing: House Alcohol intake: current Alcohol intake frequency: holidays/special occasions only Patient Tobacco Use Status: Former Tobacco user Tobacco use type: Cigarette e-Cigarette/Vaping Use: Never Used Second Hand Smoke Exposure: Yes service: No Current occupational status: disabled Cognitive needs: No Hearing needs: No Vision needs: No Questionnaire PHQ-9 Over the last 2 weeks, how often have you been bothered by any of the following problems? 1. Little interest or pleasure in doing things: not at all 2. Feeling down, depressed, or hopeless: not at all 3. Trouble falling or staying asleep, or sleeping too much: not at all 4. Feeling tired or having little energy: not at all 5. Poor appetite or overeating: not at all 6. Feeling bad about yourself - or that you are a failure or have let yourself or your family down: not at all 7. Trouble concentrating on things, such as reading the newspaper or watching television: not at all 8. Moving or speaking so slowly that other people could have noticed. Or the opposite - being so fidgety or restless that you have been moving around a lot more than usual: not at all 9. Thoughts that you would be better off or of hurting yourself in some way: not at all Total score: 0 Depression Screening Interpretation: Negative Depression Screening Done: Yes Source: Developed by Drs. Carroll Power, Chiquita Porter, Rod Branham and colleagues, with an educational tuan from [employer]. Thrive Questionnaire Date Thrive assessed: 05/20/23 VIKTORIA-7 AMB Questionnaire VIKTORIA-7 Date VIKTORIA - 7 assessed: 05/20/23 Source: Developed by Drs. Carroll Power, Rod Hernadez and colleagues, with an educational tuan from [employer]. Review of Systems Const Denies chills, Denies headache(s) and Denies weight loss ENT Denies headache(s) Card Denies chest pain, Denies syncope, Denies irregular heart rhythm and Denies dyspnea Resp Denies chest congestion, Denies cough and Denies dyspnea GI Denies abdominal pain, Denies change in stool character, Denies nausea and Denies vomiting Musc Denies deformity and Denies joint swelling Neuro Denies syncope and Denies headache(s) Physical exam (Primary Care) Vital Signs: Last Vital Signs Pulse 98 06/17/23 11:48 BP 130/80 06/17/23 11:48 Pulse Ox 76 L 06/17/23 11:48 Oxygen Delivery Method Room Air 06/17/23 11:48 BMI result Body Mass Index 32.5 Tobacco/Smoking Status: Tobacco use Status Tobacco use date assessed 05/20/23 06/17/23 11:51 Patient Tobacco Use Status Former Tobacco user 06/17/23 11:51 Tobacco use type Cigarette 06/17/23 11:51 e-Cigarette/Vaping Use Never Used 06/17/23 11:51 PHQ-9: PHQ-9 Score PHQ-9: Total score 0 06/17/23 11:51 Depression Screening Interpretation: Negative Thrive Assessment: Date of Thrive Assessment Date Thrive assessed 05/20/23 06/17/23 11:51 Const General: cooperative, comfortable, no acute distress and alert Neck Neck: Yes no lymphadenopathy Thyroid: Thyroid normal Resp Effort & Inspection: normal respiratory effort Auscultation: clear to auscultation bilaterally Percussion: percussion normal Cardio Jugular venous distension: no JVD Palpation: normal PMI Rate: regular rate Rhythm: regular rhythm Heart sounds: S1 normal heart sound present and S2 normal heart sound present GI Inspection: Yes normal to inspection Palpation (GI): No hepatosplenomegaly present Skin General skin exam: no rashes or lesions noted Extrem General: Yes no clubbing, cyanosis or edema Assessment and Plan Assessment & Plan (1) Failed back syndrome: Code(s): M96.1 - Postlaminectomy syndrome, not elsewhere classified Medications: Refilled oxycodone 10 mg PO Q8H PRN 84 tabs 0RF pain 28 days Coding Level of Care Code Est Pt Level 3 (26666) Diagnoses Failed back syndrome M96.1
[2023-06-17 11:48] VITALS: BP 130/80; PULSE 98; O2SAT 76; BMI 32.5
== END 2023-06-17 12:08 | disposition home or self-care (01) ==
PROVIDERS: PCP Internal Medicine; Visit Provider Internal Medicine
DX: M96.1 Postlaminectomy syndrome, not elsewhere classified (principal)
CPT/HCPCS: 99213

== ENCOUNTER 2023-07-15 11:07 | Outpatient (AMB) | payer OTHER, SELFPAY ==
[2023-07-15 11:11] VITALS: BP 104/68; PULSE 78; O2SAT 98; BMI 32.7
--- NOTE | 2023-07-15 11:11 | MHC.PC.OV ---
Vital Signs 07/15/23 11:11 Height 6 ft Weight 241 lb BMI 32.7 BP 104/68 Blood Pressure Location Lt brachial Position Sitting Pulse 78 Pulse Source Pulse Oximeter Pulse Oximetry (%) 98 Oxygen Delivery Method Room Air 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: Med Management Chainstitch Felled Seam Operator Required: No Field Auditor: Not Required per policy Accompanied by: Self / Same As Patient Allergies naproxen Allergy (Severe, Verified 07/15/23 11:11) Anaphylaxis seasonal allergies Allergy (Unknown, Uncoded 07/15/23 11:11) Unknown Medication List - Last Reconciled 07/15/23 by Roldan Andino MD adalimumab (Humira(CF) Pen) inject one - 40 mg/0.4 mL pen every 2 weeks subcut albuterol sulfate 90 mcg/actuation 2 puffs inhalation Q6H PRN 30 days fluticasone propionate 50 mcg/actuation 1 spray intranasal BID omeprazole 20 mg PO DAILY sildenafil (Viagra) 50 mg PO DAILY PRN Tobacco use date assessed: 05/20/23 Dental Screening Dental Screen Date: 07/15/23 Did you have a dental visit in the last 12 months?: Yes Did you have a dental problem in the last 6 months where you did not have access to dental care?: No Was dental information given to patient?: Patient has dentist HPI Med Management HPI Details failed back syndrome; doing well and compliant [facility] Medical History Obesity Asthma Failed back syndrome HLA-B27 spondyloarthropathy Hx of hemorrhoids Hx of osteoarthritis Family history of GERD Hx of gout History of rectal bleeding Surgical History History of arthroscopy of right knee History of inguinal hernia repair History of adenoidectomy History of lumbar surgery History of back surgery Hx of knee surgery Hx of tonsillectomy Family History Mother Pancreas cancer Diabetes Father Prostate cancer Rheumatoid arthritis Brother Diabetes Sister Diabetes Daughter No problems noted. Social History Housing: House Alcohol intake: current Alcohol intake frequency: holidays/special occasions only Patient Tobacco Use Status: Former Tobacco user Tobacco use type: Cigarette e-Cigarette/Vaping Use: Never Used Second Hand Smoke Exposure: Yes service: No Current occupational status: disabled Cognitive needs: No Hearing needs: No Vision needs: No Questionnaire Thrive Questionnaire Date Thrive assessed: 05/20/23 VIKTORIA-7 AMB Questionnaire VIKTORIA-7 Date VIKTORIA - 7 assessed: 05/20/23 Source: Developed by Drs. Carroll Power, Chiquita Porter, Rod Branham and colleagues, with an educational tuan from [employer]. Review of Systems Const Denies chills, Denies headache(s) and Denies weight loss ENT Denies headache(s) Card Denies chest pain, Denies syncope, Denies irregular heart rhythm and Denies dyspnea Resp Denies chest congestion, Denies cough and Denies dyspnea GI Denies abdominal pain, Denies change in stool character, Denies nausea and Denies vomiting Musc Denies deformity and Denies joint swelling Neuro Denies syncope and Denies headache(s) Physical exam (Primary Care) Vital Signs: Last Vital Signs Pulse 78 07/15/23 11:11 BP 104/68 07/15/23 11:11 Pulse Ox 98 07/15/23 11:11 Oxygen Delivery Method Room Air 07/15/23 11:11 BMI result Body Mass Index 32.7 Tobacco/Smoking Status: Tobacco use Status Tobacco use date assessed 05/20/23 07/15/23 11:15 Patient Tobacco Use Status Former Tobacco user 07/15/23 11:15 Tobacco use type Cigarette 07/15/23 11:15 e-Cigarette/Vaping Use Never Used 07/15/23 11:15 Thrive Assessment: Date of Thrive Assessment Date Thrive assessed 05/20/23 07/15/23 11:15 Const General: cooperative, comfortable, no acute distress and alert Neck Neck: Yes no lymphadenopathy Thyroid: Thyroid normal Resp Effort & Inspection: normal respiratory effort Auscultation: clear to auscultation bilaterally Percussion: percussion normal Cardio Jugular venous distension: no JVD Palpation: normal PMI Rate: regular rate Rhythm: regular rhythm Heart sounds: S1 normal heart sound present and S2 normal heart sound present GI Inspection: Yes normal to inspection Palpation (GI): No hepatosplenomegaly present Skin General skin exam: no rashes or lesions noted Extrem General: Yes no clubbing, cyanosis or edema Assessment and Plan Assessment & Plan (1) Failed back syndrome: Code(s): M96.1 - Postlaminectomy syndrome, not elsewhere classified Plan: stable; same rx Medications: Refilled oxycodone 10 mg PO Q8H PRN 84 tabs 0RF pain 28 days Coding Level of Care Code Est Pt Level 3 (04277) Diagnoses Failed back syndrome M96.1
== END 2023-07-15 11:26 | disposition home or self-care (01) ==
PROVIDERS: PCP Internal Medicine; Visit Provider Internal Medicine
DX: M96.1 Postlaminectomy syndrome, not elsewhere classified (principal)
CPT/HCPCS: 99213

== ENCOUNTER 2023-08-12 11:23 | Outpatient (AMB) | payer OTHER, SELFPAY ==
[2023-08-12 11:26] VITALS: BP 122/76; PULSE 81; O2SAT 97; BMI 32.8
--- NOTE | 2023-08-12 11:26 | MHC.PC.OV ---
Vital Signs 08/12/23 11:26 Height 6 ft Weight 242 lb BMI 32.8 BP 122/76 Blood Pressure Location Lt brachial Position Sitting Pulse 81 Pulse Source Pulse Oximeter Pulse Oximetry (%) 97 Oxygen Delivery Method Room Air 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: Med Management Allergies naproxen Allergy (Severe, Verified 08/12/23 11:26) Anaphylaxis seasonal allergies Allergy (Unknown, Uncoded 08/12/23 11:26) Unknown Tobacco use date assessed: 08/12/23 Dental Screening Dental Screen Date: 07/15/23 HPI Med Management HPI Details failed back syndrome on rx; doing well and compliant [facility] Medical History (Updated 06/03/23 @ 10:39 by Kodak Gay MD) Obesity Asthma Failed back syndrome HLA-B27 spondyloarthropathy Hx of hemorrhoids Hx of osteoarthritis Family history of GERD Hx of gout History of rectal bleeding Surgical History History of arthroscopy of right knee History of inguinal hernia repair History of adenoidectomy History of lumbar surgery History of back surgery Hx of knee surgery Hx of tonsillectomy Family History Mother Pancreas cancer Diabetes Father Prostate cancer Rheumatoid arthritis Brother Diabetes Sister Diabetes Daughter No problems noted. Social History Housing: House Alcohol intake: current Alcohol intake frequency: holidays/special occasions only Patient Tobacco Use Status: Former Tobacco user Tobacco use type: Cigarette e-Cigarette/Vaping Use: Never Used Second Hand Smoke Exposure: Yes service: No Current occupational status: disabled Cognitive needs: No Hearing needs: No Vision needs: No Questionnaire Thrive Questionnaire Date Thrive assessed: 08/12/23 I am a: Patient What is your living situation today?: I have a steady place to live Within the past 12 months, did the food you bought not last and you didn't have the money to get more?: Never true Within the past 12 months, did you worry whether your food would run out before you got money to buy more?: Never true Do you have trouble paying for medicines?: No Do you have trouble getting transportation to medical appointments?: No Do you have trouble paying your heating and electricity bill?: No Do you have trouble taking care of your child, family member or friend?: No Do you have trouble with day-to-day activities such as bathing, preparing meals, shopping, managing finances, etc.?: No Are you currently unemployed and looking for a job?: No Are you interested in more education?: No Please select the resources that you would like help with: None THRIVE Score: 0 AUDIT C Alcohol Use Questionnaire (AUDIT-C) 1. How often do you have a drink containing alcohol?: 2-4 times a month 2. How many drinks containing alcohol do you have on a typical day when you are drinking?: 3 or 4 Total Score: 3 Score Reviewed/Action Taken: Yes VIKTORIA-7 AMB Questionnaire VIKTORIA-7 Date VIKTORIA - 7 assessed: 05/20/23 Source: Developed by Drs. Carroll Power, Chiquita Porter, Rod Branham and colleagues, with an educational tuan from [employer]. Review of Systems Const Denies chills, Denies headache(s) and Denies weight loss ENT Denies headache(s) Card Denies chest pain, Denies syncope, Denies irregular heart rhythm and Denies dyspnea Resp Denies chest congestion, Denies cough and Denies dyspnea GI Denies abdominal pain, Denies change in stool character, Denies nausea and Denies vomiting Musc Denies deformity and Denies joint swelling Neuro Denies syncope and Denies headache(s) Physical exam (Primary Care) Vital Signs: Last Vital Signs Pulse 81 08/12/23 11:26 BP 122/76 08/12/23 11:26 Pulse Ox 97 08/12/23 11:26 Oxygen Delivery Method Room Air 08/12/23 11:26 BMI result Body Mass Index 32.8 Tobacco/Smoking Status: Tobacco use Status Tobacco use date assessed 08/12/23 08/12/23 11:30 Patient Tobacco Use Status Former Tobacco user 08/12/23 11:30 Tobacco use type Cigarette 08/12/23 11:30 e-Cigarette/Vaping Use Never Used 08/12/23 11:30 Thrive Assessment: Date of Thrive Assessment Date Thrive assessed 08/12/23 08/12/23 11:30 Const General: cooperative, comfortable, no acute distress and alert Neck Neck: Yes no lymphadenopathy Thyroid: Thyroid normal Resp Effort & Inspection: normal respiratory effort Auscultation: clear to auscultation bilaterally Percussion: percussion normal Cardio Jugular venous distension: no JVD Palpation: normal PMI Rate: regular rate Rhythm: regular rhythm Heart sounds: S1 normal heart sound present and S2 normal heart sound present GI Inspection: Yes normal to inspection Palpation (GI): No hepatosplenomegaly present Skin General skin exam: no rashes or lesions noted Extrem General: Yes no clubbing, cyanosis or edema Assessment and Plan Assessment & Plan (1) Failed back syndrome: Code(s): M96.1 - Postlaminectomy syndrome, not elsewhere classified Plan: stable; same rx Medications: Refilled oxycodone 10 mg PO Q8H 28 days PRN 84 tabs 0RF pain Coding Level of Care Code Est Pt Level 3 (08558) Diagnoses Failed back syndrome M96.1
== END 2023-08-12 11:52 | disposition home or self-care (01) ==
PROVIDERS: PCP Internal Medicine; Visit Provider Internal Medicine
DX: M96.1 Postlaminectomy syndrome, not elsewhere classified (principal)
CPT/HCPCS: 99213

== ENCOUNTER 2023-08-26 09:09 | Outpatient (REF) | payer OTHER, SELFPAY ==
[2023-08-26 09:37] LABS: MANUAL DIFF FLAG NO
[2023-08-26 09:55] LABS: Basophils Percent Auto 0.3 % (0-2); Eosinophils Absolute Auto 0.2 X10*3/uL (0.0-0.4); Eosinophils Percent Auto 5.5 % (0-4); Hematocrit 41.6 % (42.0-52.0); Imm Gran Abs Auto 0.01 X10*3/uL (0.00-0.03); Imm Gran Pct Auto 0.3 % (0.0-0.4); Lymphocytes Absolute Auto 1.8 X10*3/uL (1.2-4.9); Lymphocytes Percent Auto 44.8 % (20-40); Mean Corpuscular HGB Conc 33.7 g/dl (31.0-36.0); Mean Corpuscular Hemoglobin 29.5 pg (27.0-33.0); Mean Corpuscular Volume 87.8 fL (80.0-98.0); Mean Platelet Volume 9.1 fL (9.4-12.4); Monocytes Absolute Auto 0.2 X10*3/uL (0.1-1.2); Monocytes Percent Auto 5.3 % (2-11); Neutrophils Absolute Auto 1.8 x10*3/uL (2.0-8.3); Neutrophils Percent Auto 43.8 % (45-73); Platelet Count 215 X10*3/uL (160-400); Red Blood Count 4.74 X10*6/uL (4.60-5.80); Red Cell Distribution Width 13.2 % (11.0-16.0)
[2023-08-26 10:24] LABS: Alanine Aminotransferase 20 U/L (0-40); Albumin Level 3.8 g/dL (3.5-5.0); Alkaline Phosphatase 75 U/L (39-117); Anion Gap 8 (12-20); Aspartate Amino Transferase 23 U/L (5-37); Bilirubin Total 0.4 mg/dL (0.0-1.0); Blood Urea Nitrogen 14 mg/dL (9-16); C Reactive Protein 0.12 mg/dL (< or = 0.50); Calcium 9.1 mg/dL (8.4-10.2); Carbon Dioxide 28 mmol/L (22-29); Chloride 108 mmol/L (96-108); Estimated Glomerular Filt Rate > 60; Glucose Random 90 mg/dL (60-115); Potassium 4.7 mmol/L (3.3-5.1); Sodium 139 mmol/L (135-145); Total Protein 6.8 g/dL (6.5-8.0)
[2023-08-26 10:33] LABS: Erythrocyte Sedimentation Rate 9 MM/HR (0-15)
== END 2023-08-26 09:10 | disposition home or self-care (01) ==
LOC: HO.LAB 09:09
PROVIDERS: PCP Internal Medicine; Visit Provider Student in an Organized Health Care Education/Training Program
DX: M47.899 Other spondylosis, site unspecified (principal)
CPT/HCPCS: 36415; 80053; 85025; 85652; 86140

== ENCOUNTER 2023-09-01 10:36 | Outpatient (AMB) | payer OTHER, SELFPAY ==
--- NOTE | 2023-09-01 10:41 | A.OFFVIS_ITS ---
Vital Signs 09/01/23 10:44 Height 6 ft Weight 240 lb 15.444 oz BMI 32.7 BP 112/64 Blood Pressure Location Rt brachial Position Sitting Pulse 76 Pulse Source Pulse Oximeter Pulse Oximetry (%) 97 Oxygen Delivery Method Room Air 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: osteoarthritis Intake Note: Patient last seen 06/03/23 presents today for follow up and test results. Reports new L hand pain Humira q2w, 3 doses so far next dose due tomorrow. Tolerated well, no SE. Senior Information Developer Required: No Accompanied by: Self / Same As Patient Allergies naproxen Allergy (Severe, Verified 09/01/23 10:46) Anaphylaxis seasonal allergies Allergy (Unknown, Uncoded 09/01/23 10:46) Unknown Medication List - Last Reconciled 09/01/23 by Kodak Gay MD adalimumab (Humira(CF) Pen) inject one - 40 mg/0.4 mL pen every 2 weeks subcut albuterol sulfate 90 mcg/actuation 2 puffs inhalation Q6H PRN 30 days fluticasone propionate 50 mcg/actuation 1 spray intranasal BID omeprazole 20 mg PO DAILY oxycodone 10 mg PO Q8H PRN 28 days sildenafil (Viagra) 50 mg PO DAILY PRN HPI Comments Details: 58 yoM presents for follow-up on HLA B27 positive spondyloarthropathy. Patient took 3 doses of Enbrel so far. He continues to have the same left lower back, left buttock pain. States that he has been having intermittent left hand pain and stiffness. No other symptoms. [facility] Medical History Obesity Asthma Failed back syndrome HLA-B27 spondyloarthropathy Hx of hemorrhoids Hx of osteoarthritis Family history of GERD Hx of gout History of rectal bleeding Surgical History History of arthroscopy of right knee History of inguinal hernia repair History of adenoidectomy History of lumbar surgery History of back surgery Hx of knee surgery Hx of tonsillectomy Family History Mother Pancreas cancer Diabetes Father Prostate cancer Rheumatoid arthritis Brother Diabetes Sister Diabetes Daughter No problems noted. Social History Housing: House Alcohol intake: current Alcohol intake frequency: holidays/special occasions only Patient Tobacco Use Status: Former Tobacco user Tobacco use type: Cigarette e-Cigarette/Vaping Use: Never Used Second Hand Smoke Exposure: Yes service: No Current occupational status: disabled Cognitive needs: No Hearing needs: No Vision needs: No Review of Systems Musc Reports back pain, Reports arthralgias and Reports stiffness Physical Exam Vital Signs: Last Vital Signs Pulse 76 09/01/23 10:44 BP 112/64 09/01/23 10:44 Pulse Ox 97 09/01/23 10:44 Oxygen Delivery Method Room Air 09/01/23 10:44 BMI result Body Mass Index 32.7 Const General: cooperative, healthy appearing and comfortable Nutritional Appearance: obese Orientation/consciousness: patient oriented x3 Limitations: no limitations HEENT Head: Yes normocephalic and Yes atraumatic Mouth: moist mucous membranes Resp Effort & Inspection: normal respiratory effort and able to speak in complete sentences Cardio Rate: regular rate Rhythm: regular rhythm GI Inspection: No distended Palpation (GI): Soft to palpation and nontender Skin General skin exam: no rashes or lesions noted Neuro General: patient oriented x3 Extrem Other: Minimal left 4th MCP tenderness Luh test 10-14 cm Limited lateral flexion test bilaterally Josie test bilaterally produces right SI joint area tenderness Right lower back and right buttock tenderness to palpation No nail pitting Results Reviewed Results Reviewed: Laboratory Tests Ordering Physician: Jaqui Deal NP Date of Service: 06/27/22 Procedure(s): XR lumbar spine 2-3V Accession Number(s): [id number] cc: Jaqui Deal NP~ EXAMINATION: XR LUMBOSACRAL SPINE CLINICAL INFORMATION: M54.50 - Low back pain, unspecified COMPARISON: Lumbar radiographs 04/29/2011 TECHNIQUE: Three views of the lumbosacral spine. FINDINGS: There is normal lumbar segmentation with 5 nonrib-bearing lumbar vertebrae of normal height and normal lumbar lordosis. There are postsurgical changes with anterior lumbosacral fusion L5-S1 and disc spacer, and metallic plate between posterior spinous processes L3-L4. Hardware is intact. No destructive process or osteolysis. There is no vertebral compression there are anterior bridging osteophytes at L1-L2. There is a borderline grade 0-1 spondylolisthesis at L3-L4 mild degenerative changes SI joints. Sacrum are unremarkable. XR/XR lumbar spine 2-3V IMPRESSION: 1. Postsurgical changes. Hardware intact. No destructive process or osteolysis. 2. Borderline grade 0-1 spondylolisthesis L3-L4. 3. Bridging anterior osteophytes L1-L2. Ordering Physician: Jaqui Deal NP Date of Service: 06/27/22 Procedure(s): XR hip RT min 2V Accession Number(s): [id number] cc: Jaqui Deal DRAFTING TEACHER~ EXAMINATION: XR HIP, RIGHT XR HIP, LEFT CLINICAL INFORMATION: Hip pain.? COMPARISON: Pelvis and right hip radiographs 08/26/2017.? TECHNIQUE: Each hip is imaged in AP and frog-lateral projections. There are a total of 4 views, 2 on each side.? FINDINGS: Normal bony mineralization. No fracture, dislocation, or destructive process. The hips show no focal joint narrowing or erosive change or chondrocalcinosis. Soft tissue planes appear symmetric. No diastases SI joints or pubis. There is mild bilateral lateral whiskering of the iliac crests similar to prior radiograph 2018. Hardware again noted lumbosacral spine.? XR/XR hip RT min 2V IMPRESSION: Unremarkable bilateral hips. ? Assessment & Plan Assessment & Plan (1) HLA-B27 spondyloarthropathy: Comment: Enbrel: April 2017-07/2023 Dc due to secondary non-response Humira 07/2023 Code(s): M47.899 - Other spondylosis, site unspecified Category: Medical Plan: 58-year-old male with HLA B27 non radiographic axial spa returns for follow-up. Initial history: Patient had 4 years of recurrent knee swelling, shoulder and back pain. His back pain started before age 39. Pain alternated down each buttock, woke him up in the second half of the night and was worse in morning. Inflammatory markers were elevated . Last visit, Enbrel was switched to Humira due to secondary nonresponse. Patient has done 3 doses of Humira so far. Physical exam is essentially unchanged with ongoing left SI joint pain and tenderness. Continue with Humira few more doses. If no improvement. Will consider switching to another DMARD such as Taltz or [facility] before next visit in 2 months (2) High risk medication use: Code(s): Z79.899 - Other rn long term care (current) drug therapy Category: Medical Plan: Discussed risks of TNF inhibitors such as increased risk of infection, increased risk of cancers and injection site reactions. Patient aware of side effects and agrees to proceed Plan I spent 26 minutes reviewing patient's chart, evaluating patient, ordering diagnostic workup, counseling patient and documenting in the chart Orders: Orders Erythrocyte Sedimentation Rate 2 Months M4 - Other spondylosis, site unspecified Complete Blood Count Auto Diff 2 Months M4 - Other spondylosis, site unspecified Comprehensive Met. Panel 2 Months M4 - Other spondylosis, site unspecified C Reactive Protein 2 Months M4.89 - Other spondylosis, site unspecified Coding Level of Care Code Est Pt Level 4 (47670) Diagnoses HLA-B27 spondyloarthropathy M47. High risk medication use Z79.899
[2023-09-01 10:44] VITALS: BP 112/64; PULSE 76; O2SAT 97; BMI 32.7
== END 2023-09-01 11:10 | disposition home or self-care (01) ==
PROVIDERS: PCP Internal Medicine; Visit Provider Student in an Organized Health Care Education/Training Program
DX: M47.899 Other spondylosis, site unspecified (principal); Z79.899 Other long term (current) drug therapy
CPT/HCPCS: 99214

== ENCOUNTER → 2023-09-01 10:36 | Outpatient (BNVA) | payer OTHER, SELFPAY | PROVIDERS: PCP Internal Medicine; Visit Provider Student in an Organized Health Care Education/Training Program | DX: M47.899 Other spondylosis, site unspecified (principal); Z79.899 Other long term (current) drug therapy | CPT/HCPCS: 99212 ==

== ENCOUNTER 2023-09-09 10:05 | Outpatient (AMB) | payer OTHER, SELFPAY ==
--- NOTE | 2023-09-09 10:08 | MHC.PC.OV ---
Vital Signs 09/09/23 10:09 Height 6 ft Weight 241 lb BMI 32.7 BP 120/66 Blood Pressure Location Lt brachial Position Sitting Pulse 80 Pulse Source Pulse Oximeter Oxygen Delivery Method Room Air 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: Med Management Carpet Installer Required: No [place]ling Alley Floors Installer: Not Required per policy Accompanied by: Self / Same As Patient Allergies naproxen Allergy (Severe, Verified 09/09/23 10:09) Anaphylaxis seasonal allergies Allergy (Unknown, Uncoded 09/09/23 10:09) Unknown Tobacco use date assessed: 08/12/23 Dental Screening Dental Screen Date: 07/15/23 HPI Med Management HPI Details chronic back pain on rx; doing well and compliant [facility] Medical History Obesity Asthma Failed back syndrome HLA-B27 spondyloarthropathy Hx of hemorrhoids Hx of osteoarthritis Family history of GERD Hx of gout History of rectal bleeding Surgical History History of arthroscopy of right knee History of inguinal hernia repair History of adenoidectomy History of lumbar surgery History of back surgery Hx of knee surgery Hx of tonsillectomy Family History Mother Pancreas cancer Diabetes Father Prostate cancer Rheumatoid arthritis Brother Diabetes Sister Diabetes Daughter No problems noted. Social History Housing: House Alcohol intake: current Alcohol intake frequency: holidays/special occasions only Patient Tobacco Use Status: Former Tobacco user Tobacco use type: Cigarette e-Cigarette/Vaping Use: Never Used Second Hand Smoke Exposure: Yes service: No Current occupational status: disabled Cognitive needs: No Hearing needs: No Vision needs: No Questionnaire Thrive Questionnaire Date Thrive assessed: 08/12/23 VIKTORIA-7 AMB Questionnaire VIKTORIA-7 Date VIKTORIA - 7 assessed: 05/20/23 Source: Developed by Drs. Carroll Power, Chiquita Porter, Rod Branham and colleagues, with an educational tuan from [employer]. Review of Systems Const Denies chills, Denies headache(s) and Denies weight loss ENT Denies headache(s) Card Denies chest pain, Denies syncope, Denies irregular heart rhythm and Denies dyspnea Resp Denies chest congestion, Denies cough and Denies dyspnea GI Denies abdominal pain, Denies change in stool character, Denies nausea and Denies vomiting Musc Denies deformity and Denies joint swelling Neuro Denies syncope and Denies headache(s) Physical exam (Primary Care) Vital Signs: Last Vital Signs Pulse 80 09/09/23 10:09 BP 120/66 09/09/23 10:09 Oxygen Delivery Method Room Air 09/09/23 10:09 BMI result Body Mass Index 32.7 Tobacco/Smoking Status: Tobacco use Status Tobacco use date assessed 08/12/23 09/09/23 10:09 Patient Tobacco Use Status Former Tobacco user 09/09/23 10:09 Tobacco use type Cigarette 09/09/23 10:09 e-Cigarette/Vaping Use Never Used 09/09/23 10:09 Thrive Assessment: Date of Thrive Assessment Date Thrive assessed 08/12/23 09/09/23 10:09 Const General: cooperative, comfortable, no acute distress and alert Neck Neck: Yes no lymphadenopathy Thyroid: Thyroid normal Resp Effort & Inspection: normal respiratory effort Auscultation: clear to auscultation bilaterally Percussion: percussion normal Cardio Jugular venous distension: no JVD Palpation: normal PMI Rate: regular rate Rhythm: regular rhythm Heart sounds: S1 normal heart sound present and S2 normal heart sound present GI Inspection: Yes normal to inspection Palpation (GI): No hepatosplenomegaly present Skin General skin exam: no rashes or lesions noted Extrem General: Yes no clubbing, cyanosis or edema Assessment and Plan Assessment & Plan (1) Failed back syndrome: Code(s): M96.1 - Postlaminectomy syndrome, not elsewhere classified Plan: stable; same rx Medications: Refilled fluticasone propionate 50 mcg/actuation administer into each nostril 1 spray intranasal BID 15.8 mL 8RF oxycodone 10 mg PO Q8H 28 days PRN 84 tabs 0RF pain albuterol sulfate 90 mcg/actuation 2 puffs inhalation Q6H 30 days PRN 8.5 grams 8RF bronchospasm Coding Level of Care Code Est Pt Level 3 (38502) Diagnoses Failed back syndrome M96.1
[2023-09-09 10:09] VITALS: BP 120/66; PULSE 80; BMI 32.7
== END 2023-09-09 10:28 | disposition home or self-care (01) ==
PROVIDERS: PCP Internal Medicine; Visit Provider Internal Medicine
DX: M96.1 Postlaminectomy syndrome, not elsewhere classified (principal)
CPT/HCPCS: 99213

== ENCOUNTER 2023-10-22 10:19 | Outpatient (REF) | payer OTHER, SELFPAY ==
[2023-10-22 11:02] LABS: Basophils Percent Auto 0.5 % (0-2); Eosinophils Absolute Auto 0.3 X10*3/uL (0.0-0.4); Eosinophils Percent Auto 5.5 % (0-4); Hematocrit 48.4 % (42.0-52.0); Hemoglobin 16.3 g/dl (14.0-18.0); Imm Gran Abs Auto 0.02 X10*3/uL (0.00-0.03); Imm Gran Pct Auto 0.3 % (0.0-0.4); Lymphocytes Absolute Auto 2.6 X10*3/uL (1.2-4.9); Lymphocytes Percent Auto 42.7 % (20-40); MANUAL DIFF FLAG SCAN; Mean Corpuscular HGB Conc 33.7 g/dl (31.0-36.0); Mean Corpuscular Hemoglobin 29.1 pg (27.0-33.0); Mean Corpuscular Volume 86.3 fL (80.0-98.0); Mean Platelet Volume 9.2 fL (9.4-12.4); Monocytes Absolute Auto 0.3 X10*3/uL (0.1-1.2); Monocytes Percent Auto 4.6 % (2-11); Neutrophils Absolute Auto 2.8 x10*3/uL (2.0-8.3); Neutrophils Percent Auto 46.4 % (45-73); Platelet Count 230 X10*3/uL (160-400); Red Blood Count 5.61 X10*6/uL (4.60-5.80); Red Cell Distribution Width 12.8 % (11.0-16.0); SCAN SMEAR FLAG 1; White Blood Count 6.1 X10*3/uL (4.8-10.8)
[2023-10-22 11:25] LABS: SLIDE REVIEW VERIFIED
[2023-10-22 11:42] LABS: Erythrocyte Sedimentation Rate 6 MM/HR (0-15)
[2023-10-22 11:47] LABS: Alanine Aminotransferase 16 U/L (0-40); Albumin Level 3.7 g/dL (3.5-5.0); Alkaline Phosphatase 68 U/L (39-117); Anion Gap 8 (12-20); Aspartate Amino Transferase 21 U/L (5-37); Bilirubin Total 0.4 mg/dL (0.0-1.0); Blood Urea Nitrogen 12 mg/dL (9-16); C Reactive Protein 0.33 mg/dL (< or = 0.50); Calcium 8.3 mg/dL (8.4-10.2); Carbon Dioxide 24 mmol/L (22-29); Chloride 111 mmol/L (96-108); Estimated Glomerular Filt Rate > 60; Glucose Random 103 mg/dL (60-115); Potassium 4.1 mmol/L (3.3-5.1); Sodium 139 mmol/L (135-145); Total Protein 6.7 g/dL (6.5-8.0)
== END 2023-10-22 10:20 | disposition home or self-care (01) ==
LOC: HO.LAB 10:19
PROVIDERS: PCP Internal Medicine; Visit Provider Student in an Organized Health Care Education/Training Program
DX: M47.899 Other spondylosis, site unspecified (principal)
CPT/HCPCS: 36415; 80053; 85025; 85652; 86140

== ENCOUNTER 2023-10-28 11:22 | Outpatient (AMB) | payer OTHER, SELFPAY ==
--- NOTE | 2023-10-28 11:23 | A.OFFVIS_ITS ---
Vital Signs 10/28/23 11:24 Height 6 ft Weight 244 lb 0.827 oz BMI 33.1 BP 120/74 Blood Pressure Location Rt brachial Position Sitting Pulse 84 Pulse Source Pulse Oximeter Pulse Oximetry (%) 96 Oxygen Delivery Method Room Air 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: /CM Intake Note: Patient present today for /CM office visit. 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 Required: No Accompanied by: Self / Same As Patient Allergies naproxen Allergy (Severe, Verified 10/28/23 11:27) Anaphylaxis seasonal allergies Allergy (Unknown, Uncoded 10/28/23 11:27) Unknown Medication List - Last Reconciled 10/28/23 by Kodak Gay MD adalimumab (Humira(CF) Pen) inject one - 40 mg/0.4 mL pen every 2 weeks subcut albuterol sulfate 90 mcg/actuation 2 puffs inhalation Q6H PRN 30 days fluticasone propionate 50 mcg/actuation 1 spray intranasal BID omeprazole 20 mg PO DAILY oxycodone 10 mg PO Q8H PRN 28 days sildenafil (Viagra) 50 mg PO DAILY PRN HPI Comments Details: 58 yoM presents for follow-up on HLA B27 positive spondyloarthropathy. On Humira 40 mg every other week. Well-tolerated. Patient states that he feels about the same overall. Continues to have right lower back pain, also left buttock pain especially when he lies down. He believes it is related to his L-spine surgeries. Said he has been getting some pain, stiffness and limitation of movement of his left 3rd finger intermittent pain in the right 3rd finger flexor tendon. Overall doing well however PFSH Medical History Obesity Asthma Failed back syndrome HLA-B27 spondyloarthropathy Hx of hemorrhoids Hx of osteoarthritis Family history of GERD Hx of gout History of rectal bleeding Surgical History History of arthroscopy of right knee History of inguinal hernia repair History of adenoidectomy History of lumbar surgery History of back surgery Hx of knee surgery Hx of tonsillectomy Family History Mother Pancreas cancer Diabetes Father Prostate cancer Rheumatoid arthritis Brother Diabetes Sister Diabetes Daughter No problems noted. Social History Housing: House Alcohol intake: current Alcohol intake frequency: holidays/special occasions only Patient Tobacco Use Status: Former Tobacco user Tobacco use type: Cigarette e-Cigarette/Vaping Use: Never Used Second Hand Smoke Exposure: Yes service: No Current occupational status: disabled Cognitive needs: No Hearing needs: No Vision needs: No Review of Systems Musc Reports back pain, Reports arthralgias and Reports stiffness Physical Exam Vital Signs: Last Vital Signs Pulse 84 10/28/23 11:24 BP 120/74 10/28/23 11:24 Pulse Ox 96 10/28/23 11:24 Oxygen Delivery Method Room Air 10/28/23 11:24 BMI result Body Mass Index 33.1 Const General: cooperative, healthy appearing and comfortable Nutritional Appearance: obese Orientation/consciousness: patient oriented x3 Limitations: no limitations HEENT Head: Yes normocephalic and Yes atraumatic Mouth: moist mucous membranes Resp Effort & Inspection: normal respiratory effort and able to speak in complete sentences Cardio Rate: regular rate Rhythm: regular rhythm GI Inspection: No distended Palpation (GI): Soft to palpation and nontender Skin General skin exam: no rashes or lesions noted Neuro General: patient oriented x3 Extrem Other: Left 3rd flexor tendon tenderness without triggering No active synovitis otherwise Luh test 10-14 cm Limited lateral flexion test bilaterally No nail pitting Results Reviewed Results Reviewed: Laboratory Tests Ordering Physician: Jaqui Deal NP Date of Service: 06/27/22 Procedure(s): XR lumbar spine 2-3V Accession Number(s): [id number] cc: Jaqui Deal NP~ EXAMINATION: XR LUMBOSACRAL SPINE CLINICAL INFORMATION: M54.50 - Low back pain, unspecified COMPARISON: Lumbar radiographs 04/29/2011 TECHNIQUE: Three views of the lumbosacral spine. FINDINGS: There is normal lumbar segmentation with 5 nonrib-bearing lumbar vertebrae of normal height and normal lumbar lordosis. There are postsurgical changes with anterior lumbosacral fusion L5-S1 and disc spacer, and metallic plate between posterior spinous processes L3-L4. Hardware is intact. No destructive process or osteolysis. There is no vertebral compression there are anterior bridging osteophytes at L1-L2. There is a borderline grade 0-1 spondylolisthesis at L3-L4 mild degenerative changes SI joints. Sacrum are unremarkable. XR/XR lumbar spine 2-3V IMPRESSION: 1. Postsurgical changes. Hardware intact. No destructive process or osteolysis. 2. Borderline grade 0-1 spondylolisthesis L3-L4. 3. Bridging anterior osteophytes L1-L2. Ordering Physician: Jaqui Deal NP Date of Service: 06/27/22 Procedure(s): XR hip RT min 2V Accession Number(s): [id number] cc: Jaqui Deal SCIENTIST ENGINEER~ EXAMINATION: XR HIP, RIGHT XR HIP, LEFT CLINICAL INFORMATION: Hip pain.? COMPARISON: Pelvis and right hip radiographs 08/26/2017.? TECHNIQUE: Each hip is imaged in AP and frog-lateral projections. There are a total of 4 views, 2 on each side.? FINDINGS: Normal bony mineralization. No fracture, dislocation, or destructive process. The hips show no focal joint narrowing or erosive change or chondrocalcinosis. Soft tissue planes appear symmetric. No diastases SI joints or pubis. There is mild bilateral lateral whiskering of the iliac crests similar to prior radiograph 2018. Hardware again noted lumbosacral spine.? XR/XR hip RT min 2V IMPRESSION: Unremarkable bilateral hips. ? Assessment & Plan Assessment & Plan (1) HLA-B27 spondyloarthropathy: Comment: Enbrel: April 2017-07/2023 Dc due to secondary non-response Humira 07/2023 Code(s): M47.899 - Other spondylosis, site unspecified Category: Medical Plan: 58-year-old male with HLA B27 non radiographic axial spa returns for follow-up. Initial history: Patient had 4 years of recurrent knee swelling, shoulder and back pain. His back pain started before age 39. Pain alternated down each buttock, woke him up in the second half of the night and was worse in morning. Inflammatory markers were elevated . Patient is currently on Humira 40 mg every other week. Well-tolerated. Doing well overall. Symptoms are likely degenerative in nature Continue Humira 40 mg every other week Labs before next visit in 6 months (2) High risk medication use: Code(s): Z79.899 - Other technician terminal and repeater (current) drug therapy Category: Medical Plan: Discussed risks of TNF inhibitors such as increased risk of infection, increased risk of cancers and injection site reactions. Patient aware of side effects and would like to continue Plan I spent 26 minutes reviewing patient's chart, evaluating patient, ordering diagnostic workup, counseling patient and documenting in the chart Orders: Orders Complete Blood Count Auto Diff 6 Months M47.89 - Other spondylosis, site unspecified Erythrocyte Sedimentation Rate 6 Months M47.89 - Other spondylosis, site unspecified Comprehensive Met. Panel 6 Months M4.89 - Other spondylosis, site unspecified C Reactive Protein 6 Months M47.89 - Other spondylosis, site unspecified Coding Level of Care Code Est Pt Level 4 (75307) Diagnoses HLA-B27 spondyloarthropathy M47.89 High risk medication use Z79.899
[2023-10-28 11:24] VITALS: BP 120/74; PULSE 84; O2SAT 96; BMI 33.1
== END 2023-10-28 11:45 | disposition home or self-care (01) ==
PROVIDERS: PCP Internal Medicine; Visit Provider Student in an Organized Health Care Education/Training Program
DX: M47.899 Other spondylosis, site unspecified (principal); Z79.899 Other long term (current) drug therapy
CPT/HCPCS: 99214

== ENCOUNTER → 2023-10-28 11:22 | Outpatient (BNVA) | payer OTHER, SELFPAY | PROVIDERS: PCP Internal Medicine; Visit Provider Student in an Organized Health Care Education/Training Program | DX: M47.899 Other spondylosis, site unspecified (principal); M54.50 Low back pain, unspecified; Z79.899 Other long term (current) drug therapy | CPT/HCPCS: 99212 ==

== ENCOUNTER 2023-11-04 10:00 | Outpatient (AMB) | payer OTHER, SELFPAY ==
[2023-11-04 09:59] VITALS: BMI 33.1
--- NOTE | 2023-11-04 09:59 | MHC.PC.OV ---
Vital Signs 11/04/23 09:59 Height 6 ft Weight 244 lb BMI 33.1 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: Med Management Allergies naproxen Allergy (Severe, Verified 10/28/23 11:27) Anaphylaxis seasonal allergies Allergy (Unknown, Uncoded 10/28/23 11:27) Unknown Medication List - Last Reconciled 11/04/23 by Roldan Andino MD adalimumab (Humira(CF) Pen) inject one - 40 mg/0.4 mL pen every 2 weeks subcut albuterol sulfate 90 mcg/actuation 2 puffs inhalation Q6H PRN 30 days fluticasone propionate 50 mcg/actuation 1 spray intranasal BID omeprazole 20 mg PO DAILY oxycodone 10 mg PO Q8H PRN 28 days sildenafil (Viagra) 50 mg PO DAILY PRN Tobacco use date assessed: 08/12/23 Dental Screening Dental Screen Date: 07/15/23 HPI Med Management HPI Details failed back syndrome on rx; doing well on rx PFSH Medical History Obesity Asthma Failed back syndrome HLA-B27 spondyloarthropathy Hx of hemorrhoids Hx of osteoarthritis Family history of GERD Hx of gout History of rectal bleeding Surgical History History of arthroscopy of right knee History of inguinal hernia repair History of adenoidectomy History of lumbar surgery History of back surgery Hx of knee surgery Hx of tonsillectomy Family History Mother Pancreas cancer Diabetes Father Prostate cancer Rheumatoid arthritis Brother Diabetes Sister Diabetes Daughter No problems noted. Social History Housing: House Alcohol intake: current Alcohol intake frequency: holidays/special occasions only Patient Tobacco Use Status: Former Tobacco user Tobacco use type: Cigarette e-Cigarette/Vaping Use: Never Used Second Hand Smoke Exposure: Yes service: No Current occupational status: disabled Cognitive needs: No Hearing needs: No Vision needs: No Questionnaire Thrive Questionnaire Date Thrive assessed: 08/12/23 VIKTORIA-7 AMB Questionnaire VIKTORIA-7 Date VIKTORIA - 7 assessed: 05/20/23 Source: Developed by Drs. Carroll Power, Chiquita B.W. Rod Porter and colleagues, with an educational tuan from [employer]. Review of Systems Const Denies chills, Denies headache(s) and Denies weight loss ENT Denies headache(s) Card Denies chest pain, Denies syncope, Denies irregular heart rhythm and Denies dyspnea Resp Denies chest congestion, Denies cough and Denies dyspnea GI Denies abdominal pain, Denies change in stool character, Denies nausea and Denies vomiting Musc Denies deformity and Denies joint swelling Neuro Denies syncope and Denies headache(s) Physical exam (Primary Care) BMI result Body Mass Index 33.1 Tobacco/Smoking Status: Tobacco use Status Tobacco use date assessed 08/12/23 11/04/23 10:00 Patient Tobacco Use Status Former Tobacco user 11/04/23 10:00 Tobacco use type Cigarette 11/04/23 10:00 e-Cigarette/Vaping Use Never Used 11/04/23 10:00 Thrive Assessment: Date of Thrive Assessment Date Thrive assessed 08/12/23 11/04/23 10:00 Telehealth Telehealth Telehealth Platform: Telephone Location of provider rendering services: practice address Location of patient: address on file Patient Identification confirmed using: Name, : Yes Telehealth method: voice only Patient verbally consented to treatment: Yes Patient verbally consented to billing insurance company: Yes Patient informed of any privacy concerns related to visit: Yes Minutes spent on Phone/Video with Pt.: 15 (telephone) Assessment and Plan Assessment & Plan (1) Failed back syndrome: Code(s): M96.1 - Postlaminectomy syndrome, not elsewhere classified Plan: stable; same rx Medications: Refilled oxycodone 10 mg PO Q8H 28 days PRN 84 tabs 0RF pain Coding Level of Care Code Tele Est Pt Level 3 (99912) Diagnoses Failed back syndrome M96.1
== END 2023-11-04 12:51 | disposition home or self-care (01) ==
LOC: HO.HMGH 10:01
PROVIDERS: PCP Internal Medicine; Visit Provider Internal Medicine
DX: M96.1 Postlaminectomy syndrome, not elsewhere classified (principal)
CPT/HCPCS: 99213

== ENCOUNTER 2023-12-02 10:14 | Outpatient (AMB) | payer OTHER, SELFPAY ==
--- NOTE | 2023-12-02 10:14 | A.OFFPC_ITS ---
Vital Signs 12/02/23 10:15 Height 6 ft Weight 244 lb BMI 33.1 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: Med Management Allergies naproxen Allergy (Severe, Verified 10/28/23 11:27) Anaphylaxis seasonal allergies Allergy (Unknown, Uncoded 10/28/23 11:27) Unknown Medication List - Last Reconciled 12/02/23 by Roldan Andino MD adalimumab (Humira(CF) Pen) inject one - 40 mg/0.4 mL pen every 2 weeks subcut albuterol sulfate 90 mcg/actuation 2 puffs inhalation Q6H PRN 30 days fluticasone propionate 50 mcg/actuation 1 spray intranasal BID omeprazole 20 mg PO DAILY oxycodone 10 mg PO Q8H PRN 28 days sildenafil (Viagra) 50 mg PO DAILY PRN Tobacco use date assessed: 08/12/23 Dental Screening Dental Screen Date: 07/15/23 HPI Med Management HPI Details failed back yndrome on rx; doing well and compliant [facility] Medical History (Updated 12/02/23 @ 10:32 by Roldan Andino MD) Obesity Asthma Failed back syndrome HLA-B27 spondyloarthropathy Hx of hemorrhoids Hx of osteoarthritis Family history of GERD Hx of gout History of rectal bleeding Surgical History History of arthroscopy of right knee History of inguinal hernia repair History of adenoidectomy History of lumbar surgery History of back surgery Hx of knee surgery Hx of tonsillectomy Family History Mother Pancreas cancer Diabetes Father Prostate cancer Rheumatoid arthritis Brother Diabetes Sister Diabetes Daughter No problems noted. Social History Housing: House Alcohol intake: current Alcohol intake frequency: holidays/special occasions only Patient Tobacco Use Status: Former Tobacco user Tobacco use type: Cigarette e-Cigarette/Vaping Use: Never Used Second Hand Smoke Exposure: Yes service: No Current occupational status: disabled Cognitive needs: No Hearing needs: No Vision needs: No Questionnaire Thrive Questionnaire Date Thrive assessed: 08/12/23 VIKTORIA-7 AMB Questionnaire VIKTORIA-7 Date VIKTORIA - 7 assessed: 05/20/23 Source: Developed by Drs. Carroll Power, Chiquita B.Rod Schroeder and colleagues, with an educational tuan from [employer]. Review of Systems Const Denies chills, Denies headache(s) and Denies weight loss ENT Denies headache(s) Card Denies chest pain, Denies syncope, Denies irregular heart rhythm and Denies dyspnea Resp Denies chest congestion, Denies cough and Denies dyspnea GI Denies abdominal pain, Denies change in stool character, Denies nausea and Denies vomiting Musc Denies deformity and Denies joint swelling Neuro Denies syncope and Denies headache(s) Physical exam (Primary Care) BMI result Body Mass Index 33.1 Tobacco/Smoking Status: Tobacco use Status Tobacco use date assessed 08/12/23 12/02/23 10:14 Patient Tobacco Use Status Former Tobacco user 12/02/23 10:14 Tobacco use type Cigarette 12/02/23 10:14 e-Cigarette/Vaping Use Never Used 12/02/23 10:14 Thrive Assessment: Date of Thrive Assessment Date Thrive assessed 08/12/23 12/02/23 10:14 Telehealth Telehealth Telehealth Platform: Telephone Location of provider rendering services: practice address Location of patient: address on file Patient Identification confirmed using: Name, : Yes Telehealth method: voice only Patient verbally consented to treatment: Yes Patient verbally consented to billing insurance company: Yes Patient informed of any privacy concerns related to visit: Yes Minutes spent on Phone/Video with Pt.: 15 (telephone) Assessment and Plan Assessment & Plan (1) Failed back syndrome: Code(s): M96.1 - Postlaminectomy syndrome, not elsewhere classified Plan: stable; same rx Medications: Refilled fluticasone propionate 50 mcg/actuation administer into each nostril 1 spray intranasal BID 15.8 mL 8RF oxycodone 10 mg PO Q8H 28 days PRN 84 tabs 0RF pain Coding Level of Care Code Tele Est Pt Level 3 (04666) Diagnoses Failed back syndrome M96.1
[2023-12-02 10:15] VITALS: BMI 33.1
== END 2023-12-02 11:22 | disposition home or self-care (01) ==
LOC: HO.HMGH 10:14
PROVIDERS: PCP Internal Medicine; Visit Provider Internal Medicine
DX: M96.1 Postlaminectomy syndrome, not elsewhere classified (principal)
CPT/HCPCS: 99213

== ENCOUNTER 2023-12-30 10:01 | Outpatient (AMB) | payer OTHER, SELFPAY ==
[2023-12-30 10:03] VITALS: BP 118/76; PULSE 77; O2SAT 97; BMI 32.0
--- NOTE | 2023-12-30 10:03 | MHC.PC.OV ---
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 Accompanied by: Self / Same As Patient Allergies naproxen Allergy (Severe, Verified 12/30/23 10:05) Anaphylaxis seasonal allergies Allergy (Unknown, Uncoded 12/30/23 10:05) Unknown Medication List - Last Reconciled 12/30/23 by Roldan Andino MD adalimumab (Humira(CF) Pen) 40 mg (0.4 mL) subcut Q2W albuterol sulfate 90 mcg/actuation 2 puffs inhalation Q6H PRN 30 days fluticasone propionate 50 mcg/actuation 1 spray intranasal BID omeprazole 20 mg PO DAILY oxycodone 10 mg PO Q8H PRN 28 days prednisone Take 2 tabs daily for 1 week, 1 tab daily for 1 week then stop sildenafil (Viagra) 50 mg PO DAILY PRN Tobacco use date assessed: 08/12/23 Dental Screening Dental Screen Date: 07/15/23 HPI Med Management HPI Details failed back syndrome on rx; compliant [facility] Medical History (Updated 12/02/23 @ 10:32 by Roldan Andino MD) Obesity Asthma Failed back syndrome HLA-B27 spondyloarthropathy Hx of hemorrhoids Hx of osteoarthritis Family history of GERD Hx of gout History of rectal bleeding Surgical History History of arthroscopy of right knee History of inguinal hernia repair History of adenoidectomy History of lumbar surgery History of back surgery Hx of knee surgery Hx of tonsillectomy Family History Mother Pancreas cancer Diabetes Father Prostate cancer Rheumatoid arthritis Brother Diabetes Sister Diabetes Daughter No problems noted. Social History Housing: House Alcohol intake: current Alcohol intake frequency: holidays/special occasions only Patient Tobacco Use Status: Former Tobacco user Tobacco use type: Cigarette e-Cigarette/Vaping Use: Never Used Second Hand Smoke Exposure: Yes service: No Current occupational status: disabled Cognitive needs: No Hearing needs: No Vision needs: No Questionnaire PHQ-9 Over the last 2 weeks, how often have you been bothered by any of the following problems? 1. Little interest or pleasure in doing things: not at all 2. Feeling down, depressed, or hopeless: not at all 3. Trouble falling or staying asleep, or sleeping too much: not at all 4. Feeling tired or having little energy: not at all 5. Poor appetite or overeating: not at all 6. Feeling bad about yourself - or that you are a failure or have let yourself or your family down: not at all 7. Trouble concentrating on things, such as reading the newspaper or watching television: not at all 8. Moving or speaking so slowly that other people could have noticed. Or the opposite - being so fidgety or restless that you have been moving around a lot more than usual: not at all 9. Thoughts that you would be better off or of hurting yourself in some way: not at all Total score: 0 Depression Screening Interpretation: Negative Depression Screening Done: Yes Source: Developed by Drs. Carroll Power, Chiquita Porter, Rod Branham and colleagues, with an educational tuan from [employer]. Thrive Questionnaire Date Thrive assessed: 08/12/23 AUDIT C Alcohol Use Questionnaire (AUDIT-C) 1. How often do you have a drink containing alcohol?: 2-4 times a month 2. How many drinks containing alcohol do you have on a typical day when you are drinking?: 3 or 4 Total Score: 3 Score Reviewed/Action Taken: Yes VIKTORIA-7 AMB Questionnaire VIKTORIA-7 Date VIKTORIA - 7 assessed: 05/20/23 Source: Developed by Drs. Carroll Power, Rod Hernadez and colleagues, with an educational tuan from [employer]. Review of Systems Const Denies chills, Denies headache(s) and Denies weight loss ENT Denies headache(s) Card Denies chest pain, Denies syncope, Denies irregular heart rhythm and Denies dyspnea Resp Denies chest congestion, Denies cough and Denies dyspnea GI Denies abdominal pain, Denies change in stool character, Denies nausea and Denies vomiting Musc Denies deformity and Denies joint swelling Neuro Denies syncope and Denies headache(s) Physical exam (Primary Care) Vital Signs: Last Vital Signs Pulse 77 12/30/23 10:03 BP 118/76 12/30/23 10:03 Pulse Ox 97 12/30/23 10:03 Oxygen Delivery Method Room Air 12/30/23 10:03 BMI result Body Mass Index 32.0 Tobacco/Smoking Status: Tobacco use Status Tobacco use date assessed 08/12/23 12/30/23 10:06 Patient Tobacco Use Status Former Tobacco user 12/30/23 10:06 Tobacco use type Cigarette 12/30/23 10:06 e-Cigarette/Vaping Use Never Used 12/30/23 10:06 PHQ-9: PHQ-9 Score PHQ-9: Total score 0 12/30/23 10:06 Depression Screening Interpretation: Negative Thrive Assessment: Date of Thrive Assessment Date Thrive assessed 08/12/23 12/30/23 10:06 Const General: cooperative, comfortable, no acute distress and alert Neck Neck: Yes no lymphadenopathy Thyroid: Thyroid normal Resp Effort & Inspection: normal respiratory effort Auscultation: clear to auscultation bilaterally Percussion: percussion normal Cardio Jugular venous distension: no JVD Palpation: normal PMI Rate: regular rate Rhythm: regular rhythm Heart sounds: S1 normal heart sound present and S2 normal heart sound present GI Inspection: Yes normal to inspection Palpation (GI): No hepatosplenomegaly present Skin General skin exam: no rashes or lesions noted Extrem General: Yes no clubbing, cyanosis or edema Assessment and Plan Assessment & Plan (1) Failed back syndrome: Code(s): M96.1 - Postlaminectomy syndrome, not elsewhere classified Plan: stable; same rx Medications: Refilled fluticasone propionate 50 mcg/actuation administer into each nostril 1 spray intranasal BID 15.8 mL 8RF oxycodone 10 mg PO Q8H 28 days PRN 84 tabs 0RF pain Coding Level of Care Code Est Pt Level 3 (08686) Diagnoses Failed back syndrome M96.1
== END 2023-12-30 10:21 | disposition home or self-care (01) ==
PROVIDERS: PCP Internal Medicine; Visit Provider Internal Medicine
DX: M96.1 Postlaminectomy syndrome, not elsewhere classified (principal)
CPT/HCPCS: 99213

== ENCOUNTER 2024-01-27 10:16 | Outpatient (AMB) | payer OTHER, SELFPAY ==
--- NOTE | 2024-01-27 10:17 | A.OFFPC_ITS ---
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 Accompanied by: Self / Same As Patient Allergies naproxen Allergy (Severe, Verified 01/27/24 10:17) Anaphylaxis seasonal allergies Allergy (Unknown, Uncoded 01/27/24 10:17) Unknown Medication List - Last Reconciled 01/27/24 by Roldan Andino MD adalimumab (Humira(CF) Pen) 40 mg (0.4 mL) subcut Q2W albuterol sulfate 90 mcg/actuation 2 puffs inhalation Q6H PRN 30 days fluticasone propionate 50 mcg/actuation 1 spray intranasal BID omeprazole 20 mg PO DAILY oxycodone 10 mg PO Q8H PRN 28 days sildenafil (Viagra) 50 mg PO DAILY PRN Tobacco use date assessed: 08/12/23 Dental Screening Dental Screen Date: 07/15/23 HPI Med Management HPI Details failed back syndrome on rx; doing well and compliant [facility] Medical History (Updated 12/02/23 @ 10:32 by Roldan Andino MD) Obesity Asthma Failed back syndrome HLA-B27 spondyloarthropathy Hx of hemorrhoids Hx of osteoarthritis Family history of GERD Hx of gout History of rectal bleeding Surgical History History of arthroscopy of right knee History of inguinal hernia repair History of adenoidectomy History of lumbar surgery History of back surgery Hx of knee surgery Hx of tonsillectomy Family History Mother Pancreas cancer Diabetes Father Prostate cancer Rheumatoid arthritis Brother Diabetes Sister Diabetes Daughter No problems noted. Social History Housing: House Alcohol intake: current Alcohol intake frequency: holidays/special occasions only Patient Tobacco Use Status: Former Tobacco user Tobacco use type: Cigarette e-Cigarette/Vaping Use: Never Used Second Hand Smoke Exposure: Yes service: No Current occupational status: disabled Cognitive needs: No Hearing needs: No Vision needs: No Questionnaire Thrive Questionnaire Date Thrive assessed: 08/12/23 VIKTORIA-7 AMB Questionnaire VIKTORIA-7 Date VIKTORIA - 7 assessed: 05/20/23 Source: Developed by Drs. Carroll Power, Chiquita Porter, Rod Branham and colleagues, with an educational tuan from [employer]. Review of Systems Const Denies chills, Denies headache(s) and Denies weight loss ENT Denies headache(s) Card Denies chest pain, Denies syncope, Denies irregular heart rhythm and Denies dyspnea Resp Denies chest congestion, Denies cough and Denies dyspnea GI Denies abdominal pain, Denies change in stool character, Denies nausea and Denies vomiting Musc Denies deformity and Denies joint swelling Neuro Denies syncope and Denies headache(s) Physical exam (Primary Care) Tobacco/Smoking Status: Tobacco use Status Tobacco use date assessed 08/12/23 01/27/24 10:18 Patient Tobacco Use Status Former Tobacco user 01/27/24 10:18 Tobacco use type Cigarette 01/27/24 10:18 e-Cigarette/Vaping Use Never Used 01/27/24 10:18 Thrive Assessment: Date of Thrive Assessment Date Thrive assessed 08/12/23 01/27/24 10:18 Telehealth Telehealth Telehealth Platform: Telephone Location of provider rendering services: practice address Location of patient: address on file Patient Identification confirmed using: Name, : Yes Telehealth method: voice only Patient verbally consented to treatment: Yes Patient verbally consented to billing insurance company: Yes Patient informed of any privacy concerns related to visit: Yes Minutes spent on Phone/Video with Pt.: 15 (telephone) Assessment and Plan Assessment & Plan (1) Failed back syndrome: Code(s): M96.1 - Postlaminectomy syndrome, not elsewhere classified Plan: stable; same rx Medications: Refilled oxycodone 10 mg PO Q8H PRN 84 tabs 0RF pain 28 days Coding Level of Care Code Tele Est Pt Level 3 (55412) Diagnoses Failed back syndrome M96.1
== END 2024-01-27 10:41 | disposition home or self-care (01) ==
LOC: HO.HMCH 10:16
PROVIDERS: PCP Internal Medicine; Visit Provider Internal Medicine
DX: M96.1 Postlaminectomy syndrome, not elsewhere classified (principal)

== ENCOUNTER → 2024-01-27 10:16 | Outpatient (BNVA) | payer OTHER, SELFPAY | PROVIDERS: PCP Internal Medicine; Visit Provider Internal Medicine ==

== ENCOUNTER 2024-02-05 08:35 | Outpatient (REF) | payer OTHER, SELFPAY ==
[2024-02-05 08:50] LABS: MANUAL DIFF FLAG NO
[2024-02-05 09:29] LABS: Basophils Percent Auto 0.5 % (0-2); Eosinophils Absolute Auto 0.4 X10*3/uL (0.0-0.4); Eosinophils Percent Auto 7.1 % (0-4); Hematocrit 48.7 % (42.0-52.0); Hemoglobin 15.7 g/dl (14.0-18.0); Imm Gran Abs Auto 0.01 X10*3/uL (0.00-0.03); Imm Gran Pct Auto 0.2 % (0.0-0.4); Lymphocytes Absolute Auto 2.3 X10*3/uL (1.2-4.9); Lymphocytes Percent Auto 40.6 % (20-40); Mean Corpuscular HGB Conc 32.2 g/dl (31.0-36.0); Mean Corpuscular Hemoglobin 28.8 pg (27.0-33.0); Mean Corpuscular Volume 89.4 fL (80.0-98.0); Mean Platelet Volume 9.3 fL (9.4-12.4); Monocytes Absolute Auto 0.4 X10*3/uL (0.1-1.2); Monocytes Percent Auto 6.1 % (2-11); Neutrophils Absolute Auto 2.6 x10*3/uL (2.0-8.3); Neutrophils Percent Auto 45.5 % (45-73); Platelet Count 216 X10*3/uL (160-400); Red Blood Count 5.45 X10*6/uL (4.60-5.80); Red Cell Distribution Width 13.1 % (11.0-16.0); White Blood Count 5.8 X10*3/uL (4.8-10.8)
[2024-02-05 10:12] LABS: Erythrocyte Sedimentation Rate 3 MM/HR (0-15)
[2024-02-05 11:24] LABS: Alanine Aminotransferase 29 U/L (0-40); Albumin Level 3.5 g/dL (3.5-5.0); Alkaline Phosphatase 73 U/L (39-117); Anion Gap 12 (12-20); Aspartate Amino Transferase 28 U/L (5-37); Bilirubin Total 0.4 mg/dL (0.0-1.0); Blood Urea Nitrogen 17 mg/dL (9-16); C Reactive Protein 0.12 mg/dL (< or = 0.50); Calcium 8.8 mg/dL (8.4-10.2); Carbon Dioxide 23 mmol/L (22-29); Chloride 110 mmol/L (96-108); Estimated Glomerular Filt Rate > 60; Glucose Random 93 mg/dL (60-115); Potassium 4.5 mmol/L (3.3-5.1); Sodium 140 mmol/L (135-145); Total Protein 6.3 g/dL (6.5-8.0)
[2024-02-14 18:24] LABS: Adalimumab Drug Level 5.6 mcg/mL; Anti-Adalimumab Antibody <10 AU (<10)
== END 2024-02-05 08:36 | disposition home or self-care (01) ==
LOC: HO.LAB 08:35
PROVIDERS: PCP Internal Medicine; Visit Provider Student in an Organized Health Care Education/Training Program
DX: M47.899 Other spondylosis, site unspecified (principal)
CPT/HCPCS: 36415; 80053; 80145; 83520; 85025; 85652; 86140

== ENCOUNTER 2024-02-10 10:34 | Outpatient (AMB) | payer OTHER, SELFPAY ==
--- NOTE | 2024-02-10 10:46 | MHC.OFFVIS ---
Vital Signs 02/10/24 10:49 Height 6 ft Weight 231 lb 11.293 oz BMI 31.4 BP 100/70 Blood Pressure Location Lt brachial Position Sitting Pulse 93 Pulse Source Pulse Oximeter Pulse Oximetry (%) 94 Oxygen Delivery Method Room Air 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: worsening joint pain on humira/CM Intake Note: Patient presents for worsening joint pain. Allergies naproxen Allergy (Severe, Verified 02/10/24 10:49) Anaphylaxis seasonal allergies Allergy (Unknown, Uncoded 01/27/24 10:17) Unknown Medication List - Last Reconciled 02/10/24 by Kodak Gay MD adalimumab (Humira(CF) Pen) 40 mg (0.4 mL) subcut Q2W albuterol sulfate 90 mcg/actuation 2 puffs inhalation Q6H PRN 30 days fluticasone propionate 50 mcg/actuation 1 spray intranasal BID omeprazole 20 mg PO DAILY oxycodone 10 mg PO Q8H PRN 28 days sildenafil (Viagra) 50 mg PO DAILY PRN HPI Comments Details: 59 yoM presents for follow-up on HLA B27 positive spondyloarthropathy. On Humira 40 mg every other week. Well-tolerated. Patient states that he feels about the same overall. Continues to have right lower back pain, also right buttock pain especially when he lies down. [facility] Medical History Obesity Asthma Failed back syndrome HLA-B27 spondyloarthropathy Hx of hemorrhoids Hx of osteoarthritis Family history of GERD Hx of gout History of rectal bleeding Surgical History History of arthroscopy of right knee History of inguinal hernia repair History of adenoidectomy History of lumbar surgery History of back surgery Hx of knee surgery Hx of tonsillectomy Family History Mother Pancreas cancer Diabetes Father Prostate cancer Rheumatoid arthritis Brother Diabetes Sister Diabetes Daughter No problems noted. Social History Housing: House Alcohol intake: current Alcohol intake frequency: holidays/special occasions only Patient Tobacco Use Status: Former Tobacco user Tobacco use type: Cigarette e-Cigarette/Vaping Use: Never Used Second Hand Smoke Exposure: Yes service: No Current occupational status: disabled Cognitive needs: No Hearing needs: No Vision needs: No Review of Systems Musc Reports back pain, Reports arthralgias, Denies joint swelling and Reports stiffness Physical Exam Vital Signs: Last Vital Signs Pulse 93 02/10/24 10:49 BP 100/70 02/10/24 10:49 Pulse Ox 94 02/10/24 10:49 Oxygen Delivery Method Room Air 02/10/24 10:49 BMI result Body Mass Index 31.4 Const General: cooperative, healthy appearing and comfortable Nutritional Appearance: obese Orientation/consciousness: patient oriented x3 Limitations: no limitations HEENT Head: Yes normocephalic and Yes atraumatic Mouth: moist mucous membranes Resp Effort & Inspection: normal respiratory effort and able to speak in complete sentences Cardio Rate: regular rate Rhythm: regular rhythm GI Inspection: No distended Palpation (GI): Soft to palpation and nontender Skin General skin exam: no rashes or lesions noted Neuro General: patient oriented x3 Extrem Other: No active synovitis both hands and wrists Normal range of motion of elbows and shoulders without pain Luh test 10-14 cm Limited lateral flexion test bilaterally Positive straight leg raise test on the right Negative Luh test bilaterally No nail pitting Results Reviewed Results Reviewed: Laboratory Tests Ordering Physician: Jaqui Deal NP Date of Service: 06/27/22 Procedure(s): XR lumbar spine 2-3V Accession Number(s): [id number] cc: Jaqui Deal NP~ EXAMINATION: XR LUMBOSACRAL SPINE CLINICAL INFORMATION: M54.50 - Low back pain, unspecified COMPARISON: Lumbar radiographs 04/29/2011 TECHNIQUE: Three views of the lumbosacral spine. FINDINGS: There is normal lumbar segmentation with 5 nonrib-bearing lumbar vertebrae of normal height and normal lumbar lordosis. There are postsurgical changes with anterior lumbosacral fusion L5-S1 and disc spacer, and metallic plate between posterior spinous processes L3-L4. Hardware is intact. No destructive process or osteolysis. There is no vertebral compression there are anterior bridging osteophytes at L1-L2. There is a borderline grade 0-1 spondylolisthesis at L3-L4 mild degenerative changes SI joints. Sacrum are unremarkable. XR/XR lumbar spine 2-3V IMPRESSION: 1. Postsurgical changes. Hardware intact. No destructive process or osteolysis. 2. Borderline grade 0-1 spondylolisthesis L3-L4. 3. Bridging anterior osteophytes L1-L2. Ordering Physician: Jaqui Deal NP Date of Service: 06/27/22 Procedure(s): XR hip RT min 2V Accession Number(s): [id number] cc: Jaqui Deal NP~ EXAMINATION: XR HIP, RIGHT XR HIP, LEFT CLINICAL INFORMATION: Hip pain.? COMPARISON: Pelvis and right hip radiographs 08/26/2017.? TECHNIQUE: Each hip is imaged in AP and frog-lateral projections. There are a total of 4 views, 2 on each side.? FINDINGS: Normal bony mineralization. No fracture, dislocation, or destructive process. The hips show no focal joint narrowing or erosive change or chondrocalcinosis. Soft tissue planes appear symmetric. No diastases SI joints or pubis. There is mild bilateral lateral whiskering of the iliac crests similar to prior radiograph 2018. Hardware again noted lumbosacral spine.? XR/XR hip RT min 2V IMPRESSION: Unremarkable bilateral hips. ? Assessment & Plan Assessment & Plan (1) HLA-B27 spondyloarthropathy: Comment: Enbrel: April 2017-07/2023 Dc due to secondary non-response Humira 07/2023 Code(s): M47.899 - Other spondylosis, site unspecified Category: Medical Plan: 59-year-old male with HLA B27 non radiographic axial spa returns for follow-up. Initial history: Patient had 4 years of recurrent knee swelling, shoulder and back pain. His back pain started before age 39. Pain alternated down each buttock, woke him up in the second half of the night and was worse in morning. Inflammatory markers were elevated . Patient is currently on Humira 40 mg every other week. Well-tolerated. Doing well overall. I think his back pain symptoms are related to degenerative arthritis and I will refer him to pain management Continue Humira 40 mg every other week Labs before next visit in 6 months (2) High risk medication use: Code(s): Z79.899 - Other supervisor intermediates (current) drug therapy Category: Medical Plan: Discussed risks of TNF inhibitors such as increased risk of infection, increased risk of cancers and injection site reactions. Patient aware of side effects and would like to continue Plan I spent 26 minutes reviewing patient's chart, evaluating patient, ordering diagnostic workup, counseling patient and documenting in the chart Orders: Orders Complete Blood Count Auto Diff 6 Months M47.899 - Other spondylosis, site unspecified Comprehensive Met. Panel 6 Months M47.899 - Other spondylosis, site unspecified C Reactive Protein 6 Months M47.899 - Other spondylosis, site unspecified Erythrocyte Sedimentation Rate 6 Months M47.89 - Other spondylosis, site unspecified Referrals Pain Management Referral M54.16 - Radiculopathy, lumbar region Coding Level of Care Code Est Pt Level 4 (17619) Complex EM visit Add On G2211 Diagnoses HLA-B27 spondyloarthropathy M47.899 High risk medication use Z79.899
[2024-02-10 10:49] VITALS: BP 100/70; PULSE 93; O2SAT 94; BMI 31.4
== END 2024-02-10 11:24 | disposition home or self-care (01) ==
PROVIDERS: PCP Internal Medicine; Visit Provider Student in an Organized Health Care Education/Training Program
DX: M47.899 Other spondylosis, site unspecified (principal); Z79.899 Other long term (current) drug therapy
CPT/HCPCS: 99214; G2211

== ENCOUNTER → 2024-02-10 10:34 | Outpatient (BNVA) | payer OTHER, SELFPAY | PROVIDERS: PCP Internal Medicine; Visit Provider Student in an Organized Health Care Education/Training Program | DX: M47.899 Other spondylosis, site unspecified (principal); Z79.620 Long term (current) use of immunosuppressive biologic | CPT/HCPCS: 99212 ==

== ENCOUNTER 2024-02-24 10:39 | Outpatient (AMB) | payer OTHER, SELFPAY ==
--- NOTE | 2024-02-24 10:40 | A.OFFPC_ITS ---
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: Med Management Allergies naproxen Allergy (Severe, Verified 02/24/24 10:40) Anaphylaxis seasonal allergies Allergy (Unknown, Uncoded 02/24/24 10:40) Unknown Tobacco use date assessed: 08/12/23 Dental Screening Dental Screen Date: 07/15/23 HPI Med Management HPI Details failed back syndrome on rx; due for rx; compliant [facility] Medical History Obesity Asthma Failed back syndrome HLA-B27 spondyloarthropathy Hx of hemorrhoids Hx of osteoarthritis Family history of GERD Hx of gout History of rectal bleeding Surgical History History of arthroscopy of right knee History of inguinal hernia repair History of adenoidectomy History of lumbar surgery History of back surgery Hx of knee surgery Hx of tonsillectomy Family History Mother Pancreas cancer Diabetes Father Prostate cancer Rheumatoid arthritis Brother Diabetes Sister Diabetes Daughter No problems noted. Social History Housing: House Alcohol intake: current Alcohol intake frequency: holidays/special occasions only Patient Tobacco Use Status: Former Tobacco user Tobacco use type: Cigarette e-Cigarette/Vaping Use: Never Used Second Hand Smoke Exposure: Yes service: No Current occupational status: disabled Cognitive needs: No Hearing needs: No Vision needs: No Questionnaire Thrive Questionnaire Date Thrive assessed: 08/12/23 AUDIT C Alcohol Use Questionnaire (AUDIT-C) 1. How often do you have a drink containing alcohol?: 2-4 times a month 2. How many drinks containing alcohol do you have on a typical day when you are drinking?: 3 or 4 Total Score: 3 Score Reviewed/Action Taken: Yes VIKTORIA-7 AMB Questionnaire VIKTORIA-7 Date VIKTORIA - 7 assessed: 05/20/23 Source: Developed by Drs. Carroll Power, Chiquita Porter, Rod Branham and colleagues, with an educational tuan from [employer]. Review of Systems Const Denies chills, Denies headache(s) and Denies weight loss ENT Denies headache(s) Card Denies chest pain, Denies syncope, Denies irregular heart rhythm and Denies dyspnea Resp Denies chest congestion, Denies cough and Denies dyspnea GI Denies abdominal pain, Denies change in stool character, Denies nausea and Denies vomiting Musc Denies deformity and Denies joint swelling Neuro Denies syncope and Denies headache(s) Physical exam (Primary Care) Tobacco/Smoking Status: Tobacco use Status Tobacco use date assessed 08/12/23 02/24/24 10:42 Patient Tobacco Use Status Former Tobacco user 02/24/24 10:42 Tobacco use type Cigarette 02/24/24 10:42 e-Cigarette/Vaping Use Never Used 02/24/24 10:42 Thrive Assessment: Date of Thrive Assessment Date Thrive assessed 08/12/23 02/24/24 10:42 Telehealth Telehealth Telehealth Platform: Telephone Location of provider rendering services: practice address Location of patient: address on file Patient Identification confirmed using: Name, : Yes Telehealth method: video (iphone) Patient verbally consented to treatment: Yes Patient verbally consented to billing insurance company: Yes Patient informed of any privacy concerns related to visit: Yes Minutes spent on Phone/Video with Pt.: 15 (telephone) Coding Level of Care Code Tele Est Pt Level 3 (24828) Diagnoses Failed back syndrome M96.1 Assessment & Plan Assessment & Plan (1) Failed back syndrome: Code(s): M96.1 - Postlaminectomy syndrome, not elsewhere classified Category: Medical Plan: stable; same rx
== END 2024-02-24 10:47 | disposition home or self-care (01) ==
LOC: HO.HMCH 10:39
PROVIDERS: PCP Internal Medicine; Visit Provider Internal Medicine
DX: M96.1 Postlaminectomy syndrome, not elsewhere classified (principal)

== ENCOUNTER → 2024-02-24 10:39 | Outpatient (BNVA) | payer OTHER, SELFPAY | PROVIDERS: PCP Internal Medicine; Visit Provider Internal Medicine ==

== ENCOUNTER 2024-03-23 10:19 | Outpatient (AMB) | payer OTHER, SELFPAY ==
[2024-03-23 10:21] VITALS: BP 118/70; BMI 31.5
--- NOTE | 2024-03-23 10:21 | MHC.PC.OV ---
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 Accompanied by: Self / Same As Patient Allergies naproxen Allergy (Severe, Verified 03/23/24 10:21) Anaphylaxis seasonal allergies Allergy (Unknown, Uncoded 02/24/24 10:40) Unknown Medication List - Last Reconciled 03/23/24 by Roldan Andino MD adalimumab (Humira(CF) Pen) 40 mg (0.4 mL) subcut Q2W albuterol sulfate 90 mcg/actuation 2 puffs inhalation Q6H PRN 30 days fluticasone propionate 50 mcg/actuation 1 spray intranasal BID omeprazole 20 mg PO DAILY oxycodone 10 mg PO Q8H PRN 28 days sildenafil (Viagra) 50 mg PO DAILY PRN Tobacco use date assessed: 08/12/23 Dental Screening Dental Screen Date: 03/23/24 Did you have a dental visit in the last 12 months?: Yes Did you have a dental problem in the last 6 months where you did not have access to dental care?: No Was dental information given to patient?: Patient has dentist HPI Med Management HPI Details failed back syndrome on rx; doing well and compliant [facility] Medical History Obesity Asthma Failed back syndrome HLA-B27 spondyloarthropathy Hx of hemorrhoids Hx of osteoarthritis Family history of GERD Hx of gout History of rectal bleeding Surgical History History of arthroscopy of right knee History of inguinal hernia repair History of adenoidectomy History of lumbar surgery History of back surgery Hx of knee surgery Hx of tonsillectomy Family History Mother Pancreas cancer Diabetes Father Prostate cancer Rheumatoid arthritis Brother Diabetes Sister Diabetes Daughter No problems noted. Social History Housing: House Alcohol intake: current Alcohol intake frequency: holidays/special occasions only Patient Tobacco Use Status: Former Tobacco user Tobacco use type: Cigarette e-Cigarette/Vaping Use: Never Used Second Hand Smoke Exposure: Yes service: No Current occupational status: disabled Cognitive needs: No Hearing needs: No Vision needs: No Questionnaire Thrive Questionnaire Date Thrive assessed: 08/12/23 VIKTORIA-7 AMB Questionnaire VIKTORIA-7 Date VIKTORIA - 7 assessed: 05/20/23 Source: Developed by Drs. Carroll Power, Chiquita Porter, Rod Branham and colleagues, with an educational tuan from [employer]. Review of Systems Const Denies chills, Denies headache(s) and Denies weight loss ENT Denies headache(s) Card Denies chest pain, Denies syncope, Denies irregular heart rhythm and Denies dyspnea Resp Denies chest congestion, Denies cough and Denies dyspnea GI Denies abdominal pain, Denies change in stool character, Denies nausea and Denies vomiting Musc Denies deformity and Denies joint swelling Neuro Denies syncope and Denies headache(s) Physical exam (Primary Care) Vital Signs: Last Vital Signs BP 118/70 03/23/24 10:21 BMI result Body Mass Index 31.5 Tobacco/Smoking Status: Tobacco use Status Tobacco use date assessed 08/12/23 03/23/24 10:24 Patient Tobacco Use Status Former Tobacco user 03/23/24 10:24 Tobacco use type Cigarette 03/23/24 10:24 e-Cigarette/Vaping Use Never Used 03/23/24 10:24 Thrive Assessment: Date of Thrive Assessment Date Thrive assessed 08/12/23 03/23/24 10:24 Const General: cooperative, comfortable, no acute distress and alert Neck Neck: Yes no lymphadenopathy Thyroid: Thyroid normal Resp Effort & Inspection: normal respiratory effort Auscultation: clear to auscultation bilaterally Percussion: percussion normal Cardio Jugular venous distension: no JVD Palpation: normal PMI Rate: regular rate Rhythm: regular rhythm Heart sounds: S1 normal heart sound present and S2 normal heart sound present GI Inspection: Yes normal to inspection Palpation (GI): No hepatosplenomegaly present Skin General skin exam: no rashes or lesions noted Extrem General: Yes no clubbing, cyanosis or edema Office Procedures Flu Questionnaire Does the patient have a severe egg allergy?: No Immunizations Fluarix Triv [id number] (PF) 45 mcg (15 mcg x 3)/0.5 mL IM syringe Performing Provider: Roldan Andino MD Performing Location: [facility] [place] [facility] Documented (not given) by: RJ Killian on 03/23/24 10:25 Reason Not Given: Patient Refused Coding Level of Care Code Est Pt Level 3 (26163) Diagnoses Failed back syndrome M96.1 Assessment & Plan Assessment & Plan (1) Failed back syndrome: Code(s): M96.1 - Postlaminectomy syndrome, not elsewhere classified Category: Medical Plan: stable; same rx Orders: Orders Influenza [id number] Immunization Today Z23 - Encounter for immunization Medications: Refilled albuterol sulfate 90 mcg/actuation 2 puffs inhalation Q6H 30 days PRN 8.5 grams 4RF bronchospasm oxycodone 10 mg PO Q8H 28 days PRN 84 tabs 0RF pain fluticasone propionate 50 mcg/actuation administer into each nostril 1 spray intranasal BID 15.8 mL 4RF omeprazole 20 mg PO DAILY 60 caps 2RF
== END 2024-03-23 10:37 | disposition home or self-care (01) ==
PROVIDERS: PCP Internal Medicine; Visit Provider Internal Medicine
DX: M96.1 Postlaminectomy syndrome, not elsewhere classified (principal); Z23 Encounter for immunization

== ENCOUNTER → 2024-03-23 10:19 | Outpatient (BNVA) | payer OTHER, SELFPAY | PROVIDERS: PCP Internal Medicine; Visit Provider Internal Medicine | DX: M96.1 Postlaminectomy syndrome, not elsewhere classified (principal) | CPT/HCPCS: 90471; 99212 ==

== ENCOUNTER 2024-04-20 11:25 | Outpatient (AMB) | payer OTHER, SELFPAY ==
--- NOTE | 2024-04-20 11:27 | MHC.PC.OV ---
Vital Signs 04/20/24 11:28 Height 6 ft Weight 238 lb 2 oz BMI 32.3 BP 118/74 Blood Pressure Location Lt brachial Position Sitting Pulse 88 Pulse Source Pulse Oximeter Pulse Oximetry (%) 96 Oxygen Delivery Method Room Air 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: Med Management Family Law Specialist Required: No Accompanied by: Self / Same As Patient Allergies naproxen Allergy (Severe, Verified 04/20/24 11:28) Anaphylaxis seasonal allergies Allergy (Unknown, Uncoded 04/20/24 11:28) Unknown Medication List - Last Reconciled 04/21/24 by Roldan Andino MD adalimumab (Humira(CF) Pen) 40 mg (0.4 mL) subcut Q2W albuterol sulfate 90 mcg/actuation 2 puffs inhalation Q6H PRN 30 days fluticasone propionate 50 mcg/actuation 1 spray intranasal BID omeprazole 20 mg PO DAILY oxycodone 10 mg PO Q8H PRN 28 days sildenafil (Viagra) 50 mg PO DAILY PRN triamcinolone acetonide 0.5% 1 appl topical TID Tobacco use date assessed: 04/20/24 Dental Screening Dental Screen Date: 04/20/24 HPI Med Management HPI Details failed back syndrome on rx; doing well and compliant with regimen PFSH Medical History Obesity Asthma Failed back syndrome HLA-B27 spondyloarthropathy Hx of hemorrhoids Hx of osteoarthritis Family history of GERD Hx of gout History of rectal bleeding Surgical History History of arthroscopy of right knee History of inguinal hernia repair History of adenoidectomy History of lumbar surgery History of back surgery Hx of knee surgery Hx of tonsillectomy Family History Mother Pancreas cancer Diabetes Father Prostate cancer Rheumatoid arthritis Brother Diabetes Sister Diabetes Daughter No problems noted. Social History Housing: House Alcohol intake: current Alcohol intake frequency: holidays/special occasions only Patient Tobacco Use Status: Former Tobacco user Tobacco use type: Cigarette e-Cigarette/Vaping Use: Never Used Second Hand Smoke Exposure: Yes service: No Current occupational status: disabled Cognitive needs: No Hearing needs: No Vision needs: No Questionnaire PHQ-9 Over the last 2 weeks, how often have you been bothered by any of the following problems? 1. Little interest or pleasure in doing things: not at all 2. Feeling down, depressed, or hopeless: not at all 3. Trouble falling or staying asleep, or sleeping too much: not at all 4. Feeling tired or having little energy: not at all 5. Poor appetite or overeating: not at all 6. Feeling bad about yourself - or that you are a failure or have let yourself or your family down: not at all 7. Trouble concentrating on things, such as reading the newspaper or watching television: not at all 8. Moving or speaking so slowly that other people could have noticed. Or the opposite - being so fidgety or restless that you have been moving around a lot more than usual: not at all 9. Thoughts that you would be better off or of hurting yourself in some way: not at all Total score: 0 Depression Screening Interpretation: Negative Depression Screening Done: Yes Source: Developed by Drs. Carroll Power, Chiquita Porter, Rod Branham and colleagues, with an educational tuan from [employer] Thrive Questionnaire Date Thrive assessed: 04/20/24 I am a: Patient What is your living situation today?: I have a steady place to live Within the past 12 months, did the food you bought not last and you didn't have the money to get more?: Never true Within the past 12 months, did you worry whether your food would run out before you got money to buy more?: Never true Do you have trouble paying for medicines?: No Do you have trouble getting transportation to medical appointments?: No Do you have trouble paying your heating and electricity bill?: No Do you have trouble taking care of your child, family member or friend?: No Do you have trouble with day-to-day activities such as bathing, preparing meals, shopping, managing finances, etc.?: No Are you currently unemployed and looking for a job?: No Are you interested in more education?: No Please select the resources that you would like help with: None Currently or been in a relationship where the following occur: No concerns reported THRIVE Score: 0 AUDIT C Alcohol Use Questionnaire (AUDIT-C) 1. How often do you have a drink containing alcohol?: 2-4 times a month 2. How many drinks containing alcohol do you have on a typical day when you are drinking?: 3 or 4 Total Score: 3 Score Reviewed/Action Taken: Yes VIKTORIA-7 AMB Questionnaire VIKTORIA-7 Date VIKTORIA - 7 assessed: 04/20/24 Feeling nervous, anxious, or on edge: 0 = Not at all Not being able to stop or control worryin = Not at all Worrying too much about different things: 0 = Not at all Trouble relaxin = Not at all Being so restless that it is hard to sit still: 0 = Not at all Becoming easily annoyed or irritable: 0 = Not at all Feeling afraid as if something awful might happen: 0 = Not at all Total VIKTORIA-7 score (0-4 normal; 5-9 mild; 10-14 moderate; 15-21 severe): 0 Source: Developed by Drs. Carroll Power, Chiquita Porter, Rod Branham and colleagues, with an educational tuan from [employer] Review of Systems Const Denies chills, Denies headache(s) and Denies weight loss ENT Denies headache(s) Card Denies chest pain, Denies syncope, Denies irregular heart rhythm and Denies dyspnea Resp Denies chest congestion, Denies cough and Denies dyspnea GI Denies abdominal pain, Denies change in stool character, Denies nausea and Denies vomiting Musc Denies deformity and Denies joint swelling Neuro Denies syncope and Denies headache(s) Physical exam (Primary Care) Vital Signs: Last Vital Signs Pulse 88 04/20/24 11:28 BP 118/74 04/20/24 11:28 Pulse Ox 96 04/20/24 11:28 Oxygen Delivery Method Room Air 04/20/24 11:28 BMI result Body Mass Index 32.3 Tobacco/Smoking Status: Tobacco use Status Tobacco use date assessed 04/20/24 04/20/24 11:34 Patient Tobacco Use Status Former Tobacco user 04/20/24 11:34 Tobacco use type Cigarette 04/20/24 11:34 e-Cigarette/Vaping Use Never Used 04/20/24 11:34 PHQ-9: PHQ-9 Score PHQ-9: Total score 0 04/20/24 11:34 Depression Screening Interpretation: Negative Thrive Assessment: Date of Thrive Assessment Date Thrive assessed 04/20/24 04/20/24 11:34 Currently or been in a relationship where the following occur: No concerns reported Const General: cooperative, comfortable, no acute distress and alert Neck Neck: Yes no lymphadenopathy Thyroid: Thyroid normal Resp Effort & Inspection: normal respiratory effort Auscultation: clear to auscultation bilaterally Percussion: percussion normal Cardio Jugular venous distension: no JVD Palpation: normal PMI Rate: regular rate Rhythm: regular rhythm Heart sounds: S1 normal heart sound present and S2 normal heart sound present GI Inspection: Yes normal to inspection Palpation (GI): No hepatosplenomegaly present Skin General skin exam: no rashes or lesions noted Extrem General: Yes no clubbing, cyanosis or edema Coding Level of Care Code Est Pt Level 3 (43599) Diagnoses Failed back syndrome M96.1 Assessment & Plan Assessment & Plan (1) Failed back syndrome: Code(s): M96.1 - Postlaminectomy syndrome, not elsewhere classified Category: Medical Plan: stable; same rx Medications: New triamcinolone acetonide 0.5% 1 appl topical TID 15 grams 3RF Refilled fluticasone propionate 50 mcg/actuation administer into each nostril 1 spray intranasal BID 15.8 mL 3RF oxycodone 10 mg PO Q8H PRN 84 tabs 0RF pain 28 days fluticasone propionate 50 mcg/actuation administer into each nostril 1 spray intranasal BID 15.8 mL 3RF
[2024-04-20 11:28] VITALS: BP 118/74; PULSE 88; O2SAT 96; BMI 32.3
== END 2024-04-20 11:51 | disposition home or self-care (01) ==
PROVIDERS: PCP Internal Medicine; Visit Provider Internal Medicine
DX: M96.1 Postlaminectomy syndrome, not elsewhere classified (principal)

== ENCOUNTER → 2024-04-20 11:25 | Outpatient (BNVA) | payer OTHER, SELFPAY | PROVIDERS: PCP Internal Medicine; Visit Provider Internal Medicine | DX: M96.1 Postlaminectomy syndrome, not elsewhere classified (principal) | CPT/HCPCS: 96127; 99212 ==

== ENCOUNTER 2024-06-15 10:56 | Outpatient (AMB) | payer OTHER, SELFPAY ==
--- NOTE | 2024-06-15 11:04 | MHC.PC.OV ---
Vital Signs 06/15/24 11:05 Height 6 ft Weight 238 lb 2 oz BMI 32.3 BP 130/70 Blood Pressure Location Lt brachial Position Sitting Pulse 75 Pulse Source Pulse Oximeter Temp 96.9 F Temp Source Skin Pulse Oximetry (%) 96 Oxygen Delivery Method Room Air 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: Med Management Intake Note: Patient is here to follow up on med management. Attendant Coin Operated Laundry Required: No Gun Examiner: Not Required per policy Accompanied by: Self / Same As Patient Allergies naproxen Allergy (Severe, Verified 06/15/24 11:05) Anaphylaxis seasonal allergies Allergy (Unknown, Uncoded 06/15/24 11:05) Unknown Medication List - Last Reconciled 06/15/24 by Roldan Andino MD adalimumab (Humira(CF) Pen) 40 mg (0.4 mL) subcut Q2W albuterol sulfate 90 mcg/actuation 2 puffs inhalation Q6H PRN 30 days fluticasone propionate 50 mcg/actuation 1 spray intranasal BID omeprazole 20 mg PO DAILY oxycodone 10 mg PO Q8H PRN 28 days sildenafil (Viagra) 50 mg PO DAILY PRN triamcinolone acetonide 0.5% 1 appl topical TID Tobacco use date assessed: 06/15/24 Dental Screening Dental Screen Date: 06/15/24 Did you have a dental visit in the last 12 months?: Yes Did you have a dental problem in the last 6 months where you did not have access to dental care?: No Was dental information given to patient?: Patient has dentist HPI Med Management HPI Details failed basck syndrome on rx; doing well; compliant with [facility] Medical History Obesity Asthma Failed back syndrome HLA-B27 spondyloarthropathy Hx of hemorrhoids Hx of osteoarthritis Family history of GERD Hx of gout History of rectal bleeding Surgical History History of arthroscopy of right knee History of inguinal hernia repair History of adenoidectomy History of lumbar surgery History of back surgery Hx of knee surgery Hx of tonsillectomy Family History Mother Pancreas cancer Diabetes Father Prostate cancer Rheumatoid arthritis Brother Diabetes Sister Diabetes Daughter No problems noted. Social History Housing: House Alcohol intake: current Alcohol intake frequency: holidays/special occasions only Patient Tobacco Use Status: Former Tobacco user Tobacco use type: Cigarette e-Cigarette/Vaping Use: Never Used Second Hand Smoke Exposure: Yes service: No Current occupational status: disabled Cognitive needs: No Hearing needs: No Vision needs: No Questionnaire PHQ-9 Over the last 2 weeks, how often have you been bothered by any of the following problems? 1. Little interest or pleasure in doing things: not at all 2. Feeling down, depressed, or hopeless: not at all 3. Trouble falling or staying asleep, or sleeping too much: not at all 4. Feeling tired or having little energy: not at all 5. Poor appetite or overeating: not at all 6. Feeling bad about yourself - or that you are a failure or have let yourself or your family down: not at all 7. Trouble concentrating on things, such as reading the newspaper or watching television: not at all 8. Moving or speaking so slowly that other people could have noticed. Or the opposite - being so fidgety or restless that you have been moving around a lot more than usual: not at all 9. Thoughts that you would be better off or of hurting yourself in some way: not at all Total score: 0 Depression Screening Interpretation: Negative Depression Screening Done: Yes Source: Developed by Drs. Carroll Power, Chiquita Porter, Rod Branham and colleagues, with an educational tuan from [employer]. Thrive Questionnaire Date Thrive assessed: 06/15/24 I am a: Patient What is your living situation today?: I have a steady place to live Within the past 12 months, did the food you bought not last and you didn't have the money to get more?: Never true Within the past 12 months, did you worry whether your food would run out before you got money to buy more?: Never true Do you have trouble paying for medicines?: No Do you have trouble getting transportation to medical appointments?: No Do you have trouble paying your heating and electricity bill?: No Do you have trouble taking care of your child, family member or friend?: No Do you have trouble with day-to-day activities such as bathing, preparing meals, shopping, managing finances, etc.?: No Are you currently unemployed and looking for a job?: No Are you interested in more education?: No Please select the resources that you would like help with: None Currently or been in a relationship where the following occur: No concerns reported THRIVE Score: 0 AUDIT C Alcohol Use Questionnaire (AUDIT-C) 1. How often do you have a drink containing alcohol?: 2-4 times a month 2. How many drinks containing alcohol do you have on a typical day when you are drinking?: 1 or 2 Total Score: 2 VIKTORIA-7 AMB Questionnaire VIKTORIA-7 Date VIKTORIA - 7 assessed: 06/15/24 Feeling nervous, anxious, or on edge: 0 = Not at all Not being able to stop or control worryin = Not at all Worrying too much about different things: 0 = Not at all Trouble relaxin = Not at all Being so restless that it is hard to sit still: 0 = Not at all Becoming easily annoyed or irritable: 0 = Not at all Feeling afraid as if something awful might happen: 0 = Not at all Total VIKTORIA-7 score (0-4 normal; 5-9 mild; 10-14 moderate; 15-21 severe): 0 Source: Developed by Drs. Carroll Power, Chiquita Porter, Rod Branham and colleagues, with an educational tuan from [employer]. Review of Systems Const Denies chills, Denies headache(s) and Denies weight loss ENT Denies headache(s) Card Denies chest pain, Denies syncope, Denies irregular heart rhythm and Denies dyspnea Resp Denies chest congestion, Denies cough and Denies dyspnea GI Denies abdominal pain, Denies change in stool character, Denies nausea and Denies vomiting Musc Denies deformity and Denies joint swelling Neuro Denies syncope and Denies headache(s) Physical exam (Primary Care) Vital Signs: Last Vital Signs Temp 96.9 F 06/15/24 11:05 Pulse 75 06/15/24 11:05 BP 130/70 06/15/24 11:05 Pulse Ox 96 06/15/24 11:05 Oxygen Delivery Method Room Air 06/15/24 11:05 BMI result Body Mass Index 32.3 Tobacco/Smoking Status: Tobacco use Status Tobacco use date assessed 06/15/24 06/15/24 11:09 Patient Tobacco Use Status Former Tobacco user 06/15/24 11:09 Tobacco use type Cigarette 06/15/24 11:09 e-Cigarette/Vaping Use Never Used 06/15/24 11:09 PHQ-9: PHQ-9 Score PHQ-9: Total score 0 06/15/24 11:09 Depression Screening Interpretation: Negative Thrive Assessment: Date of Thrive Assessment Date Thrive assessed 06/15/24 06/15/24 11:09 Currently or been in a relationship where the following occur: No concerns reported Const General: cooperative, comfortable, no acute distress and alert Neck Neck: Yes no lymphadenopathy Thyroid: Thyroid normal Resp Effort & Inspection: normal respiratory effort Auscultation: clear to auscultation bilaterally Percussion: percussion normal Cardio Jugular venous distension: no JVD Palpation: normal PMI Rate: regular rate Rhythm: regular rhythm Heart sounds: S1 normal heart sound present and S2 normal heart sound present GI Inspection: Yes normal to inspection Palpation (GI): No hepatosplenomegaly present Skin General skin exam: no rashes or lesions noted Extrem General: Yes no clubbing, cyanosis or edema Coding Level of Care Code Est Pt Level 3 (33679) Diagnoses Failed back syndrome M96.1 Assessment & Plan Assessment & Plan (1) Failed back syndrome: Code(s): M96.1 - Postlaminectomy syndrome, not elsewhere classified Category: Medical Plan: stable; same rx Medications: Refilled triamcinolone acetonide 0.5% 1 appl topical TID 45 grams 1RF oxycodone 10 mg PO Q8H 28 days PRN 84 tabs 0RF pain
[2024-06-15 11:05] VITALS: BP 130/70; PULSE 75; TEMP 36.1; O2SAT 96; BMI 32.3
--- OUTSIDE RECORDS SUMMARY | 2024-06-15 12:46 | XMS_ITS | Clinical Summary ---
Author Organization [facility] ity Address [address] [place] [address] Care Team Providers Care Paint Stock Clerk Name Role Phone Roldan Andino MD Primary Care Provider [phone] Social History Tobacco Use Types Packs/Day Years Used Date Smoking Tobacco: Never Assessed Sex and Gender Information Value Date Recorded Sex Assigned at Not on file Legal Sex Male 11:04 PM EST Gender Identity Not on file Sexual Orientation Not on file Plan of Treatment Health Maintenance Due Date Last Done Comments DTaP,Tdap,and Td Vaccines (1 - Tdap) 01/26/1983 Pneumococcal Vaccine: 50+ Ye ars (1 of 1 - PCV) 01/26/2014 Zoster Vaccines (1 of 2) 01/26/2014 Cholesterol Screening (Lipid Panel) 12/01/2023 Colorectal Cancer Screening: Colonoscopy 12/01/2023 Depression Screening 12/01/2023 HIV Screening 12/01/2023 Hepatitis C Screening 12/01/2023 Social Influencers of Health Screening 12/01/2023 COVID-19 Vaccine ( - 2023-2 5 season) 2024 Influenza Vaccine (#1) 2024 RSV Immunization Patients 60 + Years Old (1 - 1-dose 75+ series) 01/26/2039 HIB Vaccines Aged Out No longer eligi ble based on patient's age to complete this topic HPV Vaccines Aged Out No longer eligi ble based on patient's age to complete this topic Hepatitis A Vaccines Aged Out No long er eligible based on patient's age to complete this topic Hepatitis B Vaccines Aged Out No long er eligible based on patient's age to complete this topic IPV Vaccines Aged Out No longer eligi ble based on patient's age to complete this topic MMR Vaccines Aged Out No longer eligi ble based on patient's age to complete this topic Meningococcal ACWY Vaccine Aged Out N o longer eligible based on patient's age to complete this topic Meningococcal B Vacine Aged Out No lo nger eligible based on patient's age to complete this topic Pneumococcal Vaccine: Pediat rics (0 to 5 Years) and At-Risk Patients (6 to 64 Years) Aged Out No longer eligible b ased on patient's age to complete this topic RSV Immunization Patients Un krystian 20 months Aged Out No longer eligible b ased on patient's age to complete this topic Varicella Vaccines Aged Out No longer eligible based on patient's age to complete this topic Care Teams Paint Stock Clerk Relationship Specialty Start Date End Date Roldan Andino MD [address] [place] [address] Drive [address] [place] [address] PCP - General Internal Medicine 08/18/17
== END 2024-06-15 11:47 | disposition home or self-care (01) ==
PROVIDERS: PCP Internal Medicine; Visit Provider Internal Medicine
DX: M96.1 Postlaminectomy syndrome, not elsewhere classified (principal)

== ENCOUNTER → 2024-06-15 10:56 | Outpatient (BNVA) | payer OTHER, SELFPAY | PROVIDERS: PCP Internal Medicine; Visit Provider Internal Medicine | DX: M96.1 Postlaminectomy syndrome, not elsewhere classified (principal) | CPT/HCPCS: 99212 ==

== ENCOUNTER 2024-06-23 09:12 | Outpatient (REF) | payer OTHER, SELFPAY ==
[2024-06-23 09:44] LABS: MANUAL DIFF FLAG NO
--- OUTSIDE RECORDS SUMMARY | 2024-06-23 09:56 | XMS_ITS | Clinical Summary ---
Author Organization [facility] [employer] [facility] ity Address [address] [place] [address] Care Team Providers Care Pressure Control Supervisor Name Role Phone Roldan Andino MD Primary Care Provider [phone] Social History Tobacco Use Types Packs/Day Years [...] age to complete this topic Care Teams Pressure Control Supervisor Relationship Specialty Start Date End Date Roldan Andino MD [address] [place] [address] [address] [place] [address] PCP - General Internal Medicine 08/18/17
[2024-06-23 10:05] LABS: Basophils Percent Auto 0.4 % (0-2); Eosinophils Absolute Auto 0.4 X10*3/uL (0.0-0.4); Eosinophils Percent Auto 8.6 % (0-4); Hematocrit 42.3 % (42.0-52.0); Hemoglobin 14.3 g/dl (14.0-18.0); Imm Gran Abs Auto 0.01 X10*3/uL (0.00-0.03); Imm Gran Pct Auto 0.2 % (0.0-0.4); Lymphocytes Absolute Auto 1.7 X10*3/uL (1.2-4.9); Lymphocytes Percent Auto 35.2 % (20-40); Mean Corpuscular HGB Conc 33.8 g/dl (31.0-36.0); Mean Corpuscular Hemoglobin 29.5 pg (27.0-33.0); Mean Corpuscular Volume 87.4 fL (80.0-98.0); Mean Platelet Volume 8.9 fL (9.4-12.4); Monocytes Absolute Auto 0.3 X10*3/uL (0.1-1.2); Monocytes Percent Auto 6.1 % (2-11); Neutrophils Absolute Auto 2.3 x10*3/uL (2.0-8.3); Neutrophils Percent Auto 49.5 % (45-73); Platelet Count 211 X10*3/uL (160-400); Red Blood Count 4.84 X10*6/uL (4.60-5.80); Red Cell Distribution Width 13.3 % (11.0-16.0); White Blood Count 4.7 X10*3/uL (4.8-10.8)
[2024-06-23 10:37] LABS: Alanine Aminotransferase 26 U/L (0-40); Albumin Level 3.6 g/dL (3.5-5.0); Alkaline Phosphatase 71 U/L (39-117); Anion Gap 9 (12-20); Aspartate Amino Transferase 27 U/L (5-37); Bilirubin Total 0.4 mg/dL (0.0-1.0); Blood Urea Nitrogen 15 mg/dL (9-16); C Reactive Protein 0.18 mg/dL (< or = 0.50); Calcium 8.5 mg/dL (8.4-10.2); Carbon Dioxide 25 mmol/L (22-29); Chloride 111 mmol/L (96-108); Estimated Glomerular Filt Rate > 60; Glucose Random 111 mg/dL (60-115); Potassium 4.5 mmol/L (3.3-5.1); Sodium 140 mmol/L (135-145); Total Protein 6.7 g/dL (6.5-8.0)
[2024-06-23 10:57] LABS: Erythrocyte Sedimentation Rate 9 MM/HR (0-15)
== END 2024-06-23 09:13 | disposition home or self-care (01) ==
LOC: HO.LAB 09:12
PROVIDERS: PCP Internal Medicine; Visit Provider Student in an Organized Health Care Education/Training Program
DX: M47.899 Other spondylosis, site unspecified (principal)
CPT/HCPCS: 36415; 80053; 85025; 85652; 86140

== ENCOUNTER 2024-07-13 12:46 | Outpatient (AMB) | payer OTHER, SELFPAY ==
--- NOTE | 2024-07-13 12:48 | MHC.PC.OV ---
Vital Signs 07/13/24 12:49 Height 6 ft Weight 237 lb 6 oz BMI 32.2 BP 110/80 Blood Pressure Location Lt brachial Position Sitting Pulse 89 Pulse Source Pulse Oximeter Pulse Oximetry (%) 96 Oxygen Delivery Method Room Air 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: Med Management Offal Worker Required: No Accompanied by: Self / Same As Patient Allergies naproxen Allergy (Severe, Verified 07/13/24 12:52) Anaphylaxis seasonal allergies Allergy (Unknown, Uncoded 07/13/24 12:52) Unknown Medication List - Last Reconciled 07/13/24 by Roldan Andino MD adalimumab (Humira(CF) Pen) 40 mg (0.4 mL) subcut Q2W albuterol sulfate 90 mcg/actuation 2 puffs inhalation Q6H PRN 30 days fluticasone propionate 50 mcg/actuation 1 spray intranasal BID omeprazole 20 mg PO DAILY oxycodone 10 mg PO Q8H PRN 28 days sildenafil (Viagra) 50 mg PO DAILY PRN triamcinolone acetonide 0.5% 1 appl topical TID Tobacco use date assessed: 07/13/24 Dental Screening Dental Screen Date: 07/13/24 Did you have a dental visit in the last 12 months?: Yes Did you have a dental problem in the last 6 months where you did not have access to dental care?: No Was dental information given to patient?: Patient has dentist HPI Med Management HPI Details failed back syndrome; HLAB27; stable on rx PFSH Medical History Obesity Asthma Failed back syndrome HLA-B27 spondyloarthropathy Hx of hemorrhoids Hx of osteoarthritis Family history of GERD Hx of gout History of rectal bleeding Surgical History History of arthroscopy of right knee History of inguinal hernia repair History of adenoidectomy History of lumbar surgery History of back surgery Hx of knee surgery Hx of tonsillectomy Family History Mother Pancreas cancer Diabetes Father Prostate cancer Rheumatoid arthritis Brother Diabetes Sister Diabetes Daughter No problems noted. Social History Housing: House Alcohol intake: current Alcohol intake frequency: holidays/special occasions only Patient Tobacco Use Status: Former Tobacco user Tobacco use type: Cigarette e-Cigarette/Vaping Use: Never Used Second Hand Smoke Exposure: Yes service: No Current occupational status: disabled Current occupational exposures/hazards: No Cognitive needs: No Hearing needs: No Vision needs: No Questionnaire PHQ-9 Over the last 2 weeks, how often have you been bothered by any of the following problems? 1. Little interest or pleasure in doing things: not at all 2. Feeling down, depressed, or hopeless: not at all 3. Trouble falling or staying asleep, or sleeping too much: not at all 4. Feeling tired or having little energy: not at all 5. Poor appetite or overeating: not at all 6. Feeling bad about yourself - or that you are a failure or have let yourself or your family down: not at all 7. Trouble concentrating on things, such as reading the newspaper or watching television: not at all 8. Moving or speaking so slowly that other people could have noticed. Or the opposite - being so fidgety or restless that you have been moving around a lot more than usual: not at all 9. Thoughts that you would be better off or of hurting yourself in some way: not at all Total score: 0 Depression Screening Interpretation: Negative Depression Screening Done: Yes Source: Developed by Drs. Carroll Power, Chiquita Porter, Rod Branham and colleagues, with an educational tuan from [email or web address]. Thrive Questionnaire Date Thrive assessed: 07/13/24 I am a: Patient What is your living situation today?: I have a steady place to live Within the past 12 months, did the food you bought not last and you didn't have the money to get more?: Never true Within the past 12 months, did you worry whether your food would run out before you got money to buy more?: Never true Do you have trouble paying for medicines?: No Do you have trouble getting transportation to medical appointments?: No Do you have trouble paying your heating and electricity bill?: No Do you have trouble taking care of your child, family member or friend?: No Do you have trouble with day-to-day activities such as bathing, preparing meals, shopping, managing finances, etc.?: No Are you currently unemployed and looking for a job?: No Are you interested in more education?: No Please select the resources that you would like help with: None Currently or been in a relationship where the following occur: No concerns reported THRIVE Score: 0 AUDIT C Alcohol Use Questionnaire (AUDIT-C) 1. How often do you have a drink containing alcohol?: 2-4 times a month 2. How many drinks containing alcohol do you have on a typical day when you are drinking?: 1 or 2 3. How often do you have six or more drinks on one occasion?: Never Total Score: 2 VIKTORIA-7 AMB Questionnaire VIKTORIA-7 Date VIKTORIA - 7 assessed: 07/13/24 Feeling nervous, anxious, or on edge: 0 = Not at all Not being able to stop or control worryin = Not at all Worrying too much about different things: 0 = Not at all Trouble relaxin = Not at all Being so restless that it is hard to sit still: 0 = Not at all Becoming easily annoyed or irritable: 0 = Not at all Feeling afraid as if something awful might happen: 0 = Not at all Total VIKTORIA-7 score (0-4 normal; 5-9 mild; 10-14 moderate; 15-21 severe): 0 Source: Developed by Drs. Carroll Power, Chiquita Porter, Rod Branham and colleagues, with an educational tuan from [email or web address]. Review of Systems Const Denies chills, Denies headache(s) and Denies weight loss ENT Denies headache(s) Card Denies chest pain, Denies syncope, Denies irregular heart rhythm and Denies dyspnea Resp Denies chest congestion, Denies cough and Denies dyspnea GI Denies abdominal pain, Denies change in stool character, Denies nausea and Denies vomiting Musc Denies deformity and Denies joint swelling Neuro Denies syncope and Denies headache(s) Physical exam (Primary Care) Vital Signs: Last Vital Signs Pulse 89 07/13/24 12:49 BP 110/80 07/13/24 12:49 Pulse Ox 96 07/13/24 12:49 Oxygen Delivery Method Room Air 07/13/24 12:49 BMI result Body Mass Index 32.2 Tobacco/Smoking Status: Tobacco use Status Tobacco use date assessed 07/13/24 07/13/24 12:56 Patient Tobacco Use Status Former Tobacco user 07/13/24 12:51 Tobacco use type Cigarette 07/13/24 12:51 e-Cigarette/Vaping Use Never Used 07/13/24 12:51 PHQ-9: PHQ-9 Score PHQ-9: Total score 0 07/13/24 12:56 Depression Screening Interpretation: Negative Thrive Assessment: Date of Thrive Assessment Date Thrive assessed 07/13/24 07/13/24 12:56 Currently or been in a relationship where the following occur: No concerns reported Const General: cooperative, comfortable, no acute distress and alert Neck Neck: Yes no lymphadenopathy Thyroid: Thyroid normal Resp Effort & Inspection: normal respiratory effort Auscultation: clear to auscultation bilaterally Percussion: percussion normal Cardio Jugular venous distension: no JVD Palpation: normal PMI Rate: regular rate Rhythm: regular rhythm Heart sounds: S1 normal heart sound present and S2 normal heart sound present GI Inspection: Yes normal to inspection Palpation (GI): No hepatosplenomegaly present Skin General skin exam: no rashes or lesions noted Extrem General: Yes no clubbing, cyanosis or edema Coding Level of Care Code Est Pt Level 3 (36972) Diagnoses Failed back syndrome M96.1 Assessment & Plan Assessment & Plan (1) Failed back syndrome: Code(s): M96.1 - Postlaminectomy syndrome, not elsewhere classified Category: Medical Plan: stable; same rx Medications: Refilled oxycodone 10 mg PO Q8H 28 days PRN 84 tabs 0RF pain triamcinolone acetonide 0.5% 1 appl topical TID 45 grams 0RF
[2024-07-13 12:49] VITALS: BP 110/80; PULSE 89; O2SAT 96; BMI 32.2
--- OUTSIDE RECORDS SUMMARY | 2024-07-13 14:48 | XMS_ITS | Clinical Summary ---
Author Organization [facility] [employer] [facility] ity Address [address] [place] [address] Care Team Providers Care Sterile Products Processor Name Role Phone Roldan Andino MD Primary Care Provider [phone] Social History Tobacco Use Types Packs/Day Years [...] age to complete this topic Care Teams Sterile Products Processor Relationship Specialty Start Date End Date Roldan Andino MD [address] [place] [address] Drive [address] [place] [address] PCP - General Internal Medicine 08/18/17
== END 2024-07-13 13:07 | disposition home or self-care (01) ==
LOC: HO.HMCH 12:47
PROVIDERS: PCP Internal Medicine; Visit Provider Internal Medicine
DX: M96.1 Postlaminectomy syndrome, not elsewhere classified (principal)

== ENCOUNTER → 2024-07-13 12:46 | Outpatient (BNVA) | payer OTHER, SELFPAY | PROVIDERS: PCP Internal Medicine; Visit Provider Internal Medicine | DX: M96.1 Postlaminectomy syndrome, not elsewhere classified (principal) | CPT/HCPCS: 99212 ==

== ENCOUNTER 2024-08-11 11:27 | Outpatient (AMB) | payer OTHER, SELFPAY ==
[2024-08-11 11:54] VITALS: BP 124/78; PULSE 80; O2SAT 97; BMI 32.7
--- NOTE | 2024-08-11 11:54 | A.OFFPC_ITS ---
Vital Signs 08/11/24 11:54 Height 6 ft Weight 241 lb 2 oz BMI 32.7 BP 124/78 Blood Pressure Location Lt brachial Position Sitting Pulse 80 Pulse Source Pulse Oximeter Pulse Oximetry (%) 97 Oxygen Delivery Method Room Air 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: Transfer Care from Dr. Andino MED MANAGEMENT Member Of [employer] Required: No Accompanied by: Self / Same As Patient Allergies naproxen Allergy (Severe, Verified 08/11/24 12:24) Anaphylaxis seasonal allergies Allergy (Unknown, Uncoded 08/11/24 12:24) Unknown Medication List - Last Reconciled 08/11/24 by Charles Marsh MD adalimumab (Humira(CF) Pen) 40 mg (0.4 mL) subcut Q2W albuterol sulfate 90 mcg/actuation 2 puffs inhalation Q6H PRN 30 days fluticasone propionate 50 mcg/actuation 1 spray intranasal BID omeprazole 20 mg PO DAILY oxycodone 10 mg PO Q8H PRN 28 days sildenafil (Viagra) 50 mg PO DAILY PRN triamcinolone acetonide 0.5% 1 appl topical TID Tobacco use date assessed: 08/11/24 Dental Screening Dental Screen Date: 08/11/24 Did you have a dental visit in the last 12 months?: Yes Did you have a dental problem in the last 6 months where you did not have access to dental care?: No Was dental information given to patient?: Patient has dentist HPI Transfer Care from Dr. Andino MED MANAGEMENT HPI Details Patient comes in today for his follow up visit - is transferring over from Dr. Andino, who retired from the practice a few weeks ago States that he has chronic low back pain and joint pains has been taking his current pain medication for years now He continues to follow up with rheumatology regularly and has been on Humira for his HLA-B27 spondyloarthropathy He has also been referred by rheumatology to pain management back in February 2024 but states that he has not heard from pain management so far to schedule any appointment with them yet Patient states that he feels okay otherwise He denies any headaches or dizziness Denies any chest pains, no increased shortness of breath No nausea/vomiting, no abdominal pain No change in bowel habits noted Needs a couple of his Rx refilled today [facility] Medical History (Updated 08/14/24 @ 07:39 by Charles Marsh MD) Obesity (BMI 30-39.9) Allergic rhinitis GERD without esophagitis Obesity Asthma Failed back syndrome HLA-B27 spondyloarthropathy Hx of hemorrhoids Hx of osteoarthritis Family history of GERD Hx of gout History of rectal bleeding Surgical History History of arthroscopy of right knee History of inguinal hernia repair History of adenoidectomy History of lumbar surgery History of back surgery Hx of knee surgery Hx of tonsillectomy Family History Mother Pancreas cancer Diabetes Father Prostate cancer Rheumatoid arthritis Brother Diabetes Sister Diabetes Daughter No problems noted. Social History Housing: House Alcohol intake: current Alcohol intake frequency: holidays/special occasions only Patient Tobacco Use Status: Former Tobacco user Tobacco use type: Cigarette e-Cigarette/Vaping Use: Never Used Second Hand Smoke Exposure: Yes service: No Current occupational status: disabled Current occupational exposures/hazards: No Cognitive needs: No Hearing needs: No Vision needs: No Questionnaire PHQ-9 Over the last 2 weeks, how often have you been bothered by any of the following problems? 1. Little interest or pleasure in doing things: not at all 2. Feeling down, depressed, or hopeless: not at all 3. Trouble falling or staying asleep, or sleeping too much: not at all 4. Feeling tired or having little energy: not at all 5. Poor appetite or overeating: not at all 6. Feeling bad about yourself - or that you are a failure or have let yourself or your family down: not at all 7. Trouble concentrating on things, such as reading the newspaper or watching television: not at all 8. Moving or speaking so slowly that other people could have noticed. Or the opposite - being so fidgety or restless that you have been moving around a lot more than usual: not at all 9. Thoughts that you would be better off or of hurting yourself in some way: not at all Total score: 0 Depression Screening Interpretation: Negative Depression Screening Done: Yes 42442 - PHQ-9 Billing: Yes Source: Developed by Chiquita SmithW. German, Rod Branham and colleagues, with an educational tuan from [employer] Thrive Questionnaire Date Thrive assessed: 08/11/24 I am a: Patient What is your living situation today?: I have a steady place to live Within the past 12 months, did the food you bought not last and you didn't have the money to get more?: Never true Within the past 12 months, did you worry whether your food would run out before you got money to buy more?: Never true Do you have trouble paying for medicines?: No Do you have trouble getting transportation to medical appointments?: No Do you have trouble paying your heating and electricity bill?: No Do you have trouble taking care of your child, family member or friend?: No Do you have trouble with day-to-day activities such as bathing, preparing meals, shopping, managing finances, etc.?: No Are you currently unemployed and looking for a job?: No Are you interested in more education?: No Please select the resources that you would like help with: None Currently or been in a relationship where the following occur: No concerns reported THRIVE Score: 0 AUDIT C Alcohol Use Questionnaire (AUDIT-C) 1. How often do you have a drink containing alcohol?: 2-4 times a month 2. How many drinks containing alcohol do you have on a typical day when you are drinking?: 1 or 2 3. How often do you have six or more drinks on one occasion?: Never Total Score: 2 Score Reviewed/Action Taken: Yes VIKTORIA-7 AMB Questionnaire VIKTORIA-7 Date VIKTORIA - 7 assessed: 08/11/24 Feeling nervous, anxious, or on edge: 0 = Not at all Not being able to stop or control worryin = Not at all Worrying too much about different things: 0 = Not at all Trouble relaxin = Not at all Being so restless that it is hard to sit still: 0 = Not at all Becoming easily annoyed or irritable: 0 = Not at all Feeling afraid as if something awful might happen: 0 = Not at all Total VIKTORIA-7 score (0-4 normal; 5-9 mild; 10-14 moderate; 15-21 severe): 0 Source: Developed by Chiquita Smith Kurt Kroenke and colleagues, with an educational tuan from [employer] Review of Systems Const Denies chills, Denies fatigue, Denies fever(s) and Denies headache(s) ENT Denies dysphagia, Denies dizziness, Denies otalgia, Denies headache(s), Denies neck pain, Denies odynophagia and Denies sore throat Card Denies chest pain, Denies palpitations and Denies dyspnea Resp Denies chest congestion, Denies cough and Denies dyspnea GI Denies abdominal pain, Denies constipation, Denies dysphagia, Denies heartburn, Denies diarrhea, Denies nausea, Denies odynophagia and Denies vomiting Denies difficulty urinating, Denies dysuria, Denies nocturia and Denies urinary frequency Musc Reports back pain (over the lower back - chronic), Reports arthralgias (involving both knees, on and off) and Denies neck pain Skin/Breast Denies rash Neuro Denies dizziness and Denies headache(s) Endo Denies fatigue and Denies palpitations Physical exam (Primary Care) Vital Signs: Last Vital Signs Pulse 80 08/11/24 11:54 BP 124/78 08/11/24 11:54 Pulse Ox 97 08/11/24 11:54 Oxygen Delivery Method Room Air 08/11/24 11:54 BMI result Body Mass Index 32.7 Tobacco/Smoking Status: Tobacco use Status Tobacco use date assessed 08/11/24 08/11/24 11:58 Patient Tobacco Use Status Former Tobacco user 08/11/24 11:58 Tobacco use type Cigarette 08/11/24 11:58 e-Cigarette/Vaping Use Never Used 08/11/24 11:58 PHQ-9: PHQ-9 Score PHQ-9: Total score 0 08/11/24 12:27 Depression Screening Interpretation: Negative Thrive Assessment: Date of Thrive Assessment Date Thrive assessed 08/11/24 08/11/24 11:58 Currently or been in a relationship where the following occur: No concerns reported Const General: no acute distress and alert HENMT Ears: TM's normal bilaterally and EAC's normal Throat: Yes posterior oropharynx normal and Yes tonsils normal (no TP congestion) Neck Neck: Yes supple and No lymphadenopathy Thyroid: Thyroid normal Resp Auscultation: clear to auscultation bilaterally, no rales and no wheezes Cardio Rate: regular rate Rhythm: regular rhythm Heart sounds: no murmurs GI Palpation (GI): Soft to palpation and nontender Auscultation: normal bowel sounds General: Yes no CVA tenderness Back/Spine/Pelvis Back: no CVA tenderness Thoracic/Lumbar Spine: lumbar spinal tenderness (chronic) Skin Rashes: no rashes Extrem General: Yes no clubbing, cyanosis or edema Coding Level of Care Code Est Pt Level 4 (06785) Diagnoses Failed back syndrome M96.1 HLA-B27 spondyloarthropathy M47.899 Mild intermittent asthma without complication J45.20 Asthma severity: mild Asthma persistence: intermittent Asthma complication type: uncomplicated GERD without esophagitis K21.9 Allergic rhinitis, unspecified seasonality, unspecified trigger J30.9 Allergic rhinitis trigger: unspecified Allergic rhinitis seasonality: unspecified Obesity (BMI 30-39.9) E66.9 Additional Codes PHQ-9 - 76792 - PHQ-9 Billing: Yes ([id number]) Assessment & Plan Assessment & Plan (1) Failed back syndrome: Code(s): M96.1 - Postlaminectomy syndrome, not elsewhere classified Category: Medical Plan: Reinforced activity and weight-lifting restrictions Continue Oxycodone 10 mg Q 8 hours PRN for pain Patient was referred to pain management late last year but states that he has not yet heard back from pain management about scheduling an appointment Will renew pain management referral Have advised patient that we will likely have to have him renew and sign a new pain management agreement at his next visit and that we will also continue doing unannounced/ramdom urine drug screens to stay in compliance (2) HLA-B27 spondyloarthropathy: Comment: Mark: April 2017-07/2023 Dc due to secondary non-response Humira 07/2023 Code(s): M47.899 - Other spondylosis, site unspecified Category: Medical Plan: Continue Humira 40 mg S every 2 weeks Follow up with rheumatology as scheduled (3) Asthma: Code(s): J45.909 - Unspecified asthma, uncomplicated Category: Medical Qualifiers: Asthma severity: mild Asthma persistence: intermittent Asthma complication type: uncomplicated Qualified Code(s): J45.20 - Mild intermittent asthma, uncomplicated Plan: Controlled lately Continue Albuterol HFA 1 to 2 inhalations every 6 hours PRN (4) GERD without esophagitis: Code(s): K21.9 - Gastro-esophageal reflux disease without esophagitis Category: Medical Plan: Dietary restrictions reinforced Continue Omeprazole 20 mg QD (5) Allergic rhinitis: Code(s): J30.9 - Allergic rhinitis, unspecified Category: Medical Qualifiers: Allergic rhinitis trigger: unspecified Allergic rhinitis seasonality: unspecified Qualified Code(s): J30.9 - Allergic rhinitis, unspecified Plan: Continue Fluticasone 50 mcg nasal spray QD PRN (6) Obesity (BMI 30-39.9): Code(s): E66.9 - Obesity, unspecified Category: Medical Plan: Reinforced diet; exercise and weight loss are not practical given patient's multiple comorbidities and physical issues Plan Follow up in 1 month Orders: Referrals Pain Management Referral M47.899 - Other spondylosis, site unspecified, M54.16 - Radiculopathy, lumbar region, M54.50 - Low back pain, unspecified Medications: Refilled triamcinolone acetonide 0.5% 1 appl topical TID 45 grams 0RF oxycodone 10 mg PO Q8H 28 days PRN 84 tabs 0RF pain
--- OUTSIDE RECORDS SUMMARY | 2024-08-11 13:56 | XMS_ITS | Clinical Summary ---
Author Organization [facility] [employer] [facility] ity Address [address] [place] [address] Care Team Providers Care Dumpcart Driver Name Role Phone Roldan Andino MD Primary Care Provider [phone] Social History Tobacco Use Types Packs/Day Years [...] - 2023-2 5 season) 2024 Influenza Vaccine (Season Ended) 2025 RSV Immunization Adult Patie nts (1 - 1-dose 75+ series) 01/26/2039 HIB [...] age to complete this topic Meningococcal B Vaccine Aged Out No l onger eligible based on patient's age to complete [...] age to complete this topic Care Teams Dumpcart Driver Relationship Specialty Start Date End Date Roldan Andino MD [address] [place] [address] Drive [address] [place] [address] PCP - General Internal Medicine 08/18/17
== END 2024-08-11 12:33 | disposition home or self-care (01) ==
LOC: HO.HMCH 11:28
PROVIDERS: PCP Internal Medicine; Visit Provider Internal Medicine
DX: J45.20 Mild intermittent asthma, uncomplicated (principal); M96.1 Postlaminectomy syndrome, not elsewhere classified; E66.9 Obesity, unspecified; Z68.32 Body mass index [BMI] 32.0-32.9, adult; M47.899 Other spondylosis, site unspecified; K21.9 Gastro-esophageal reflux disease without esophagitis; J30.9 Allergic rhinitis, unspecified

== ENCOUNTER → 2024-08-11 11:27 | Outpatient (BNVA) | payer OTHER, SELFPAY | PROVIDERS: PCP Internal Medicine; Visit Provider Internal Medicine | DX: M96.1 Postlaminectomy syndrome, not elsewhere classified (principal); M47.899 Other spondylosis, site unspecified; J45.20 Mild intermittent asthma, uncomplicated; K21.9 Gastro-esophageal reflux disease without esophagitis; J30.9 Allergic rhinitis, unspecified; E66.9 Obesity, unspecified | CPT/HCPCS: 96127; 99212 ==

== ENCOUNTER 2024-09-07 14:28 | Outpatient (AMB) | payer OTHER, SELFPAY ==
--- NOTE | 2024-09-07 14:43 | A.OFFPC_ITS ---
Vital Signs 09/07/24 14:46 Height 6 ft Weight 238 lb 2 oz BMI 32.3 BP 128/80 Blood Pressure Location Lt brachial Position Sitting Pulse 68 Pulse Source Pulse Oximeter Pulse Oximetry (%) 98 Oxygen Delivery Method Room Air 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: MED MANAGEMENT Check Pilot Required: No Accompanied by: Self / Same As Patient Allergies naproxen Allergy (Severe, Verified 09/07/24 15:12) Anaphylaxis seasonal allergies Allergy (Unknown, Uncoded 09/07/24 15:12) Unknown Medication List - Last Reconciled 09/07/24 by Charles Marsh MD adalimumab (Humira(CF) Pen) 40 mg (0.4 mL) subcut Q2W albuterol sulfate 90 mcg/actuation 2 puffs inhalation Q6H PRN 30 days fluticasone propionate 50 mcg/actuation 1 spray intranasal BID omeprazole 20 mg PO DAILY oxycodone 10 mg PO Q8H PRN 28 days sildenafil (Viagra) 50 mg PO DAILY PRN tacrolimus 0.1% 1 appl topical BID tacrolimus 0.1% 1 appl topical BID triamcinolone acetonide 0.5% 1 appl topical TID Tobacco use date assessed: 09/07/24 Dental Screening Dental Screen Date: 09/07/24 Did you have a dental visit in the last 12 months?: Yes Did you have a dental problem in the last 6 months where you did not have access to dental care?: No Was dental information given to patient?: Patient has dentist HPI MED MANAGEMENT 2 HPI Details Patient comes in today for his follow up visit States that he was just started on Tacrolimus ointment BID by Dr. De Guzman States that he feels okay otherwise He continues to follow up with rheumatology regularly for his HLA-B27 spondyloarthropathy and has been doing well on Humira for years now States that his chronic low back pain and joint pains remain adequately controlled on his current Rx and he just needs his pain med Rx refilled today He denies any headaches or dizziness Denies any chest pains, no increased shortness of breath No nausea/vomiting, no abdominal pain No change in bowel habits noted [facility]LY [facility] Medical History Obesity (BMI 30-39.9) Allergic rhinitis GERD without esophagitis Obesity Asthma Failed back syndrome HLA-B27 spondyloarthropathy Hx of hemorrhoids Hx of osteoarthritis Family history of GERD Hx of gout History of rectal bleeding Surgical History History of arthroscopy of right knee History of inguinal hernia repair History of adenoidectomy History of lumbar surgery History of back surgery Hx of knee surgery Hx of tonsillectomy Family History Mother Pancreas cancer Diabetes Father Prostate cancer Rheumatoid arthritis Brother Diabetes Sister Diabetes Daughter No problems noted. Social History Housing: House Alcohol intake: current Alcohol intake frequency: holidays/special occasions only Patient Tobacco Use Status: Former Tobacco user Tobacco use type: Cigarette e-Cigarette/Vaping Use: Never Used Second Hand Smoke Exposure: Yes service: No Current occupational status: disabled Current occupational exposures/hazards: No Cognitive needs: No Hearing needs: No Vision needs: No Questionnaire PHQ-9 Over the last 2 weeks, how often have you been bothered by any of the following problems? 1. Little interest or pleasure in doing things: not at all 2. Feeling down, depressed, or hopeless: not at all 3. Trouble falling or staying asleep, or sleeping too much: not at all 4. Feeling tired or having little energy: not at all 5. Poor appetite or overeating: not at all 6. Feeling bad about yourself - or that you are a failure or have let yourself or your family down: not at all 7. Trouble concentrating on things, such as reading the newspaper or watching television: not at all 8. Moving or speaking so slowly that other people could have noticed. Or the opposite - being so fidgety or restless that you have been moving around a lot more than usual: not at all 9. Thoughts that you would be better off or of hurting yourself in some way: not at all Total score: 0 Depression Screening Interpretation: Negative Depression Screening Done: Yes 44777 - PHQ-9 Billing: Yes Source: Developed by Drs. Carroll Power, Chiquita Porter, Rod Branham and colleagues, with an educational tuan from [employer]. Thrive Questionnaire Date Thrive assessed: 09/07/24 I am a: Patient What is your living situation today?: I have a steady place to live Within the past 12 months, did the food you bought not last and you didn't have the money to get more?: Never true Within the past 12 months, did you worry whether your food would run out before you got money to buy more?: Never true Do you have trouble paying for medicines?: No Do you have trouble getting transportation to medical appointments?: No Do you have trouble paying your heating and electricity bill?: No Do you have trouble taking care of your child, family member or friend?: No Do you have trouble with day-to-day activities such as bathing, preparing meals, shopping, managing finances, etc.?: No Are you currently unemployed and looking for a job?: No Are you interested in more education?: No Please select the resources that you would like help with: None Currently or been in a relationship where the following occur: No concerns reported THRIVE Score: 0 AUDIT C Alcohol Use Questionnaire (AUDIT-C) 1. How often do you have a drink containing alcohol?: 2-4 times a month 2. How many drinks containing alcohol do you have on a typical day when you are drinking?: 1 or 2 3. How often do you have six or more drinks on one occasion?: Never Total Score: 2 Score Reviewed/Action Taken: Yes VIKTORIA-7 AMB Questionnaire VIKTORIA-7 Date VIKTORIA - 7 assessed: 09/07/24 Feeling nervous, anxious, or on edge: 0 = Not at all Not being able to stop or control worryin = Not at all Worrying too much about different things: 0 = Not at all Trouble relaxin = Not at all Being so restless that it is hard to sit still: 0 = Not at all Becoming easily annoyed or irritable: 0 = Not at all Feeling afraid as if something awful might happen: 0 = Not at all Total VIKTORIA-7 score (0-4 normal; 5-9 mild; 10-14 moderate; 15-21 severe): 0 Source: Developed by Drs. Carroll Power, Chiquita Porter, Rod Branham and colleagues, with an educational tuan from [employer]. Review of Systems Const Denies chills, Denies fatigue, Denies fever(s) and Denies headache(s) ENT Denies dysphagia, Denies dizziness, Denies otalgia, Denies headache(s), Denies neck pain, Denies odynophagia and Denies sore throat Card Denies chest pain, Denies palpitations and Denies dyspnea Resp Denies chest congestion, Denies cough and Denies dyspnea GI Denies abdominal pain, Denies constipation, Denies dysphagia, Denies heartburn, Denies diarrhea, Denies nausea, Denies odynophagia and Denies vomiting Denies difficulty urinating, Denies dysuria, Denies nocturia and Denies urinary frequency Musc Reports back pain (over the lower back - chronic), Reports arthralgias (involving both knees, on and off) and Denies neck pain Skin/Breast Denies rash Neuro Denies dizziness and Denies headache(s) Endo Denies fatigue and Denies palpitations Physical exam (Primary Care) Vital Signs: Last Vital Signs Pulse 68 09/07/24 14:46 BP 128/80 09/07/24 14:46 Pulse Ox 98 09/07/24 14:46 Oxygen Delivery Method Room Air 09/07/24 14:46 BMI result Body Mass Index 32.3 Tobacco/Smoking Status: Tobacco use Status Tobacco use date assessed 09/07/24 09/07/24 14:54 Patient Tobacco Use Status Former Tobacco user 09/07/24 14:45 Tobacco use type Cigarette 09/07/24 14:45 e-Cigarette/Vaping Use Never Used 09/07/24 14:45 PHQ-9: PHQ-9 Score PHQ-9: Total score 0 09/07/24 14:54 Depression Screening Interpretation: Negative Thrive Assessment: Date of Thrive Assessment Date Thrive assessed 09/07/24 09/07/24 14:54 Currently or been in a relationship where the following occur: No concerns reported Const General: no acute distress and alert HENMT Ears: TM's normal bilaterally and EAC's normal Throat: Yes posterior oropharynx normal and Yes tonsils normal (no TP congestion) Neck Neck: Yes supple and No lymphadenopathy Thyroid: Thyroid normal Resp Auscultation: clear to auscultation bilaterally, no rales and no wheezes Cardio Rate: regular rate Rhythm: regular rhythm Heart sounds: no murmurs GI Palpation (GI): Soft to palpation and nontender Auscultation: normal bowel sounds General: Yes no CVA tenderness Back/Spine/Pelvis Back: no CVA tenderness Thoracic/Lumbar Spine: lumbar spinal tenderness (chronic) Skin Rashes: no rashes Extrem General: Yes no clubbing, cyanosis or edema Coding Level of Care Code Est Pt Level 3 (58000) Diagnoses Failed back syndrome M96.1 HLA-B27 spondyloarthropathy M47.899 Mild intermittent asthma without complication J45.20 Asthma severity: mild Asthma persistence: intermittent Asthma complication type: uncomplicated GERD without esophagitis K21.9 Allergic rhinitis, unspecified seasonality, unspecified trigger J30.9 Allergic rhinitis trigger: unspecified Allergic rhinitis seasonality: unspecified Obesity (BMI 30-39.9) E66.9 Additional Codes PHQ-9 - 98034 - PHQ-9 Billing: Yes ([id number]) Assessment & Plan Assessment & Plan (1) Failed back syndrome: Code(s): M96.1 - Postlaminectomy syndrome, not elsewhere classified Category: Medical Plan: Reinforced activity and weight-lifting restrictions Continue Oxycodone 10 mg Q 8 hours PRN for pain - Rx refilled today Patient was referred to pain management late last year but states that he has not yet heard back from pain management about scheduling an appointment - referral was renewed last month We also have patient renew and sign an updated pain management agreement today and have reminded him that we will also continue doing unannounced/ramdom urine drug screens to stay in compliance (2) HLA-B27 spondyloarthropathy: Comment: Enbrel: April 2017-07/2023 Dc due to secondary non-response Humira 07/2023 Code(s): M47.899 - Other spondylosis, site unspecified Category: Medical Plan: Continue Humira 40 mg SQ every 2 weeks Follow up with rheumatology as scheduled - he has an appointment to see Dr. Ro at the end of next month (October 2024) (3) Asthma: Code(s): J45.909 - Unspecified asthma, uncomplicated Category: Medical Qualifiers: Asthma severity: mild Asthma persistence: intermittent Asthma complication type: uncomplicated Qualified Code(s): J45.20 - Mild intermittent asthma, uncomplicated Plan: Controlled Continue Albuterol HFA 1 to 2 inhalations every 6 hours PRN (4) GERD without esophagitis: Code(s): K21.9 - Gastro-esophageal reflux disease without esophagitis Category: Medical Plan: Dietary restrictions reinforced Continue Omeprazole 20 mg QD (5) Allergic rhinitis: Code(s): J30.9 - Allergic rhinitis, unspecified Category: Medical Qualifiers: Allergic rhinitis trigger: unspecified Allergic rhinitis seasonality: unspecified Qualified Code(s): J30.9 - Allergic rhinitis, unspecified Plan: Continue Fluticasone 50 mcg nasal spray QD PRN (6) Obesity (BMI 30-39.9): Code(s): E66.9 - Obesity, unspecified Category: Medical Plan: Reinforced diet; exercise and weight loss are not practical given patient's multiple comorbidities and physical issues Plan Follow up as scheduled in 2 months as I will be out of the office for a couple of weeks next month Medications: Refilled oxycodone 10 mg PO Q8H 28 days PRN 84 tabs 0RF pain
[2024-09-07 14:46] VITALS: BP 128/80; PULSE 68; O2SAT 98; BMI 32.3
--- OUTSIDE RECORDS SUMMARY | 2024-09-07 15:40 | XMS_ITS | Clinical Summary ---
Author Organization [employer] [facility] ity Address [address] [place] [address] Care Team Providers Care Airline Attendant Name Role Phone Roldan Andino MD Primary Care Provider [phone] Social History Tobacco Use Types Packs/Day Years [...] age to complete this topic Care Teams Airline Attendant Relationship Specialty Start Date End Date Roldan Andino MD [address] [place] [address] Drive [address] [place] [address] PCP - General Internal Medicine 08/18/17
== END 2024-09-07 15:37 | disposition home or self-care (01) ==
PROVIDERS: PCP Internal Medicine; Visit Provider Internal Medicine
DX: J45.20 Mild intermittent asthma, uncomplicated (principal); M47.899 Other spondylosis, site unspecified; E66.9 Obesity, unspecified; Z68.32 Body mass index [BMI] 32.0-32.9, adult; M96.1 Postlaminectomy syndrome, not elsewhere classified; K21.9 Gastro-esophageal reflux disease without esophagitis; J30.9 Allergic rhinitis, unspecified

== ENCOUNTER → 2024-09-07 14:28 | Outpatient (BNVA) | payer OTHER, SELFPAY | PROVIDERS: PCP Internal Medicine; Visit Provider Internal Medicine | DX: M96.1 Postlaminectomy syndrome, not elsewhere classified (principal); M47.899 Other spondylosis, site unspecified; J45.20 Mild intermittent asthma, uncomplicated; K21.9 Gastro-esophageal reflux disease without esophagitis; J30.9 Allergic rhinitis, unspecified; E66.9 Obesity, unspecified; Z68.32 Body mass index [BMI] 32.0-32.9, adult; Z79.620 Long term (current) use of immunosuppressive biologic; Z79.891 Long term (current) use of opiate analgesic; Z79.899 Other long term (current) drug therapy | CPT/HCPCS: 96127; 99212 ==

== ENCOUNTER 2024-10-27 14:06 | Outpatient (AMB) | payer OTHER, SELFPAY ==
--- NOTE | 2024-10-27 14:43 | A.OFFVIS_ITS ---
Vital Signs 10/27/24 14:47 Height 6 ft Weight 238 lb 8.642 oz BMI 32.3 BP 120/70 Blood Pressure Location Lt brachial Position Sitting Pulse 74 Pulse Source Pulse Oximeter Pulse Oximetry (%) 98 Oxygen Delivery Method Room Air 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: Intake Note: Patient presents for follow up. Allergies naproxen Allergy (Severe, Verified 10/27/24 14:46) Anaphylaxis seasonal allergies Allergy (Unknown, Uncoded 09/07/24 15:12) Unknown Medication List - Last Reconciled 10/27/24 by Roz Ro MD adalimumab (Humira(CF) Pen) 40 mg (0.4 mL) subcut Q2W albuterol sulfate 90 mcg/actuation 2 puffs inhalation Q6H PRN 30 days fluticasone propionate 50 mcg/actuation 1 spray intranasal BID omeprazole 20 mg PO DAILY oxycodone 10 mg PO Q8H PRN 28 days sildenafil (Viagra) 50 mg PO DAILY PRN tacrolimus 0.1% 1 appl topical BID tacrolimus 0.1% 1 appl topical BID triamcinolone acetonide 0.5% 1 appl topical TID HPI Comments Details: Patient is a 59-year-old male with GERD, polyarticular osteoarthritis and HLA B27 positive ankylosing spondylitis here today for follow up Interval History: Patient last seen 02/10/[address] Gay. At that time he was following up for his HLA B27 positive ankylosing spondylitis on Humira monotherapy. He was tolerating the Humira but continued to have right lower back pain and also right buttock pain especially when he lies down. His back pains were attributed to degenerative disease and he was sent to pain management for further evaluation Today, Patient did not go to pain management b/c he thought it was PT Complaining of right lateral elbow pain Rheumatologic History: Enbrel: April 2017-07/2023 Dc due to secondary non-response Humira 07/2023 Initial history: Patient had 4 years of recurrent knee swelling, shoulder and back pain. His back pain started before age 39. Pain alternated down each buttock, woke him up in the second half of the night and was worse in morning. Inflammatory markers were elevated . Current Rheumatology Medication(s): Humira 40mg SC every 2 weeks PFSH Medical History Obesity (BMI 30-39.9) Allergic rhinitis GERD without esophagitis Obesity Asthma Failed back syndrome HLA-B27 spondyloarthropathy Hx of hemorrhoids Hx of osteoarthritis Family history of GERD Hx of gout History of rectal bleeding Surgical History History of arthroscopy of right knee History of inguinal hernia repair History of adenoidectomy History of lumbar surgery History of back surgery Hx of knee surgery Hx of tonsillectomy Family History Mother Pancreas cancer Diabetes Father Prostate cancer Rheumatoid arthritis Brother Diabetes Sister Diabetes Daughter No problems noted. Social History Housing: House Alcohol intake: current Alcohol intake frequency: holidays/special occasions only Patient Tobacco Use Status: Former Tobacco user Tobacco use type: Cigarette e-Cigarette/Vaping Use: Never Used Second Hand Smoke Exposure: Yes service: No Current occupational status: disabled Current occupational exposures/hazards: No Cognitive needs: No Hearing needs: No Vision needs: No Review of Systems Const Details: Review of Systems Constitutional: Denies fever, chills, weight loss ENT: Denies vision changes, eye pain or eye redness, dental caries, dry mouth GI: Denies nausea, vomiting, diarrhea, abdominal pain, change in BM Pulm: Denies SOB, KIM, hemoptysis, wheezing Cards: Denies chest pain, palpitations Skin: Denies Raynaud's, rash, nail changes, photosensitivity, FAMILY MEMBER CARETAKER: Denies headaches, weakness, paresthesias, recurrent falls MSK: as per HPI All other systems reviewed and are unremarkable except noted above Physical Exam Vital Signs: Last Vital Signs Pulse 74 10/27/24 14:47 BP 120/70 10/27/24 14:47 Pulse Ox 98 10/27/24 14:47 Oxygen Delivery Method Room Air 10/27/24 14:47 BMI result Body Mass Index 32.3 Vital signs reviewed Physical Examination CONSTITUITIONAL Patient alert and cooperative. Well appearing and in no apparent painful distress HEENT Conjunctiva and sclera clear. No lymphadenopathy. CHEST/RESPIRATORY SYSTEM Normal respiratory effort and able to speak in complete sentences. Clear to auscultation bilaterally. No crackles, rales, rhonchi, wheezes heard. CARDIAC SYSTEM Regular rate and rhythm. S1 and S2 heard no murmurs. Radial pulses intact bilaterally MSK Hands * Able to make a fist bilaterally. Herbeden's nodes bilaterally. Mild contractures plapated to the hands Wrists * Right Wrist: Full ROM. 70 degrees of wrist flexion, 80 degrees of wrist extension. No swelling or TTP * Left Wrist: Full ROM. 70 degrees of wrist flexion, 80 degrees of wrist extension. No swelling or TTP Elbows * Right Elbow: Full ROM. No swelling or TTP. TTP of the lateral epicondyle * Left Elbow: Full ROM. No swelling or TTP. No TTP of the medial and lateral epicondyles Shoulders * Right shoulder: Full ROM. No swelling noted. No TTP of the AC joint, subacromial bursa or posterior shoulder * Left shoulder: Full ROM. No swelling noted. No TTP of the AC joint, subacromial bursa or posterior shoulder Knees * Right knee: No swelling noted. No TTP of the knee joint lie or pes anserine bursa * Left knee: No swelling noted. No TTP of the knee joint lie or pes anserine bursa. * Slightly decreased ROM to extension bilaterally * Crepitations felt bilaterally Ankles * Right ankle: Good ankle dorsiflexion and plantar flexion. No swelling. No TTP of the ankle joint * Left ankle: Good ankle dorsiflexion and plantar flexion. No swelling. No TTP of the ankle joint Feet * Right foot: Negative squeeze test * Left foot: Negative squeeze test Tender points? * No tenderness to palpation of the bilateral trapezius, supraspinatus, anterior costochondral junctions, bilateral suboccipital muscle insertions SKIN No rashes Results Reviewed Results Reviewed: Laboratory Tests 06/23/24 09:43 WBC 4.7 L RBC 4.84 Hgb 14.3 Hct 42.3 Plt Count 211 ESR 9 Sodium 140 Potassium 4.5 Chloride 111 H Carbon Dioxide 25 BUN 15 Creatinine 0.67 AST 27 ALT 26 Alkaline Phosphatase 71 C-Reactive Protein 0.18 Infectious serologies 05/14/23 08:17 Hepatitis A IgM Ab Nonreactive Hep Bs Antigen Negative Hep Bs Antibody GRAYZONE Hep B Core Total Ab Nonreactive Hepatitis C Ab (EIA) Nonreactive TB Test (T-Spot) Com Negative Assessment & Plan Assessment & Plan (1) HLA-B27 spondyloarthropathy: Comment: Enbrel: April 2017-07/2023 Dc due to secondary non-response Humira 07/2023 Code(s): M47.899 - Other spondylosis, site unspecified Category: Surgical Plan: #HLA B27 positive Ank Spon Patient is a 59-year-old male with HLA B27 positive ankylosing spondylitis here today for follow up. Currently in remission on Humira monotherapy Did not go to pain management because he thought it was physical therapy we will reorder referral for his lumbar spondylosis. Plan - Humira 40mg SC every 2 weeks - RTC 6 months - Labs before visit: CBC, CMP, ESR, CRP, Hepatitis panel and T spot (2) Encounter for monitoring of adalimumab therapy: Code(s): Z51.81 - Encounter for therapeutic drug level monitoring; Z79.620 - termite helper (current) use of immunosuppressive biologic Plan: #Long-term Use of TNF Inhibitors: Humira Discussed with the patient the benefits and risks of TNF inhibitors for the management of the rheumatic condition Benefits include reduce pain, maintenance of remission and reduction of flares as well as progression of the disease Risks include injection sites/infusion reactions, serious infections (such as bacterial infections, opportunistic infections), malignancy, delaminating syndromes, autoimmune phenomena, CHF exacerbations, palmar plantar psoriasis and cytopenias Recommended rotating injection sites, and holding medication during and for up to 1 week after resolution of a febrile illness or open skin wound Plan I spent 25 minutes reviewing the record and labs, taking a history, examining the patient, discussing the treatment plan, ordering diagnostic work up and documenting in the medical record Orders: Orders Comprehensive Met. Panel 6 Months M4.89 - Other spondylosis, site unspecified C Reactive Protein 6 Months M4.899 - Other spondylosis, site unspecified Erythrocyte Sedimentation Rate 6 Months M4.899 - Other spondylosis, site unspecified Complete Blood Count Auto Diff 6 Months M489 - Other spondylosis, site unspecified Hepatitis A,B,C Profile 6 Months M4.899 - Other spondylosis, site unspecified T Spot TB 6 Months M4.89 - Other spondylosis, site unspecified Referrals Pain Management Referral M54.16 - Radiculopathy, lumbar region Coding Level of Care Code Est Pt Level 3 (90676) Complex EM visit Add On G2211 Diagnoses HLA-B27 spondyloarthropathy M47.899 Encounter for monitoring of adalimumab therapy Z51.81; Z79.620
[2024-10-27 14:47] VITALS: BP 120/70; PULSE 74; O2SAT 98; BMI 32.3
--- OUTSIDE RECORDS SUMMARY | 2024-10-27 17:01 | XMS_ITS | Patient Health Record ---
Author Organization [facility] Address [address] [place] [address] Care Team Providers Care Gear Room Keeper Name Role Phone Thu GIANG, Roldan Primary Care Provider Carroll Wright Unavailable [phone] Allergies Allergen (clinical drug ingredient) Drug/Non Drug Allergy documented on EMR Reaction Allergy Type Onset Date Status Seasonal (uncoded) Unknown Allergy A ctive Reason For Referral No Information Medications Medication SIG (Take, Route, Fr equency, Duration) Notes Start Date End Date Status oxyCODONE HCl Active MoviPrep 100 GM as directed Orally once for 1 dose 06/05/2011 05/04/2024 Active Problems Problem Type SNOMED Code ICD Code Onset Dates Problem Status W/U Status Risk Notes Problem Blood in stool (951932071) Blood in stool (578.1) Active confirmed Problem Family history of malignant neoplasm of gastrointestinal tract (204504290) Family history of malignant neoplasm of gastrointestinal tract (V16.0) Active confirmed Plan Of Treatment Future Test Test Name Order Date COLONOSCOPY 06/05/2011 Insurance Providers Payer Name Payer Address Payer Phone Subscriber Number Group Number Insured Name Patient Relationship to Insured Coverage Start Date Coverage End Date MEDICAID OF [facility] [address] [place] [address] [id number] RENÉ MOE Self - patient is the insured Medical (General) History Medical History History ICD Code Denies AK,DM,CVA,Lung disease,renal dise ase Surgical History Surgery Date(Month/Year) 3 back surgeries knee hernia
== END 2024-10-27 15:20 | disposition home or self-care (01) ==
LOC: HO.RHE 14:06
PROVIDERS: PCP Internal Medicine; Visit Provider Student in an Organized Health Care Education/Training Program
DX: M47.899 Other spondylosis, site unspecified (principal); Z51.81 Encounter for therapeutic drug level monitoring; Z79.620 Long term (current) use of immunosuppressive biologic
CPT/HCPCS: 99213; G2211

== ENCOUNTER → 2024-10-27 14:06 | Outpatient (BNVA) | payer OTHER, SELFPAY | PROVIDERS: PCP Internal Medicine; Visit Provider Student in an Organized Health Care Education/Training Program | DX: M47.816 Spondylosis without myelopathy or radiculopathy, lumbar region (principal); K21.9 Gastro-esophageal reflux disease without esophagitis; M47.899 Other spondylosis, site unspecified; Z51.81 Encounter for therapeutic drug level monitoring; Z79.620 Long term (current) use of immunosuppressive biologic | CPT/HCPCS: 99212 ==

== ENCOUNTER 2024-11-02 10:09 | Outpatient (AMB) | payer OTHER, SELFPAY ==
--- NOTE | 2024-11-02 10:11 | MHC.PC.OV ---
Vital Signs 11/02/24 10:12 Height 6 ft Weight 235 lb 4 oz BMI 31.9 BP 110/76 Blood Pressure Location Lt brachial Position Sitting Pulse 88 Pulse Source Pulse Oximeter Pulse Oximetry (%) 95 Oxygen Delivery Method Room Air 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: MED MANAGEMENT Networks Software Consultant Required: No Accompanied by: Self / Same As Patient Allergies naproxen Allergy (Severe, Verified 11/02/24 10:41) Anaphylaxis seasonal allergies Allergy (Unknown, Uncoded 11/02/24 10:41) Unknown Medication List - Last Reconciled 11/02/24 by Charles Marsh MD adalimumab (Humira(CF) Pen) 40 mg (0.4 mL) subcut Q2W albuterol sulfate 90 mcg/actuation 2 puffs inhalation Q6H PRN 30 days fluocinonide 0.05% appl topical fluticasone propionate 50 mcg/actuation 1 spray intranasal BID omeprazole 20 mg PO DAILY oxycodone 10 mg PO Q8H PRN 28 days sildenafil (Viagra) 50 mg PO DAILY PRN tacrolimus 0.1% 1 appl topical BID tacrolimus 0.1% 1 appl topical BID triamcinolone acetonide 0.5% 1 appl topical TID Tobacco use date assessed: 11/02/24 Dental Screening Dental Screen Date: 11/02/24 Did you have a dental visit in the last 12 months?: Yes Did you have a dental problem in the last 6 months where you did not have access to dental care?: No Was dental information given to patient?: Patient has dentist HPI MED MANAGEMENT HPI Details Patient comes in today for his follow up visit States that he feels okay He denies any headaches or dizziness Denies any chest pains, no increased shortness of breath No nausea/vomiting, no abdominal pain No change in bowel habits noted He continues to follow up with rheumatology regularly for his HLA-B27 spondyloarthropathy and has been doing well on Humira for years now States that his chronic low back pain and joint pains remain adequately controlled on his current Rx and he just needs his pain med Rx refilled today; he is up-to-date on all his other prescriptions [facility] Medical History Obesity (BMI 30-39.9) Allergic rhinitis GERD without esophagitis Obesity Asthma Failed back syndrome Hx of hemorrhoids Hx of osteoarthritis Family history of GERD Hx of gout History of rectal bleeding Surgical History HLA-B27 spondyloarthropathy History of arthroscopy of right knee History of inguinal hernia repair History of adenoidectomy History of lumbar surgery History of back surgery Hx of knee surgery Hx of tonsillectomy Family History Mother Pancreas cancer Diabetes Father Prostate cancer Rheumatoid arthritis Brother Diabetes Sister Diabetes Daughter No problems noted. Social History Housing: House Alcohol intake: current Alcohol intake frequency: holidays/special occasions only Patient Tobacco Use Status: Former Tobacco user Tobacco use type: Cigarette e-Cigarette/Vaping Use: Never Used Second Hand Smoke Exposure: Yes service: No Current occupational status: disabled Current occupational exposures/hazards: No Cognitive needs: No Hearing needs: No Vision needs: No Questionnaire PHQ-9 Over the last 2 weeks, how often have you been bothered by any of the following problems? 1. Little interest or pleasure in doing things: not at all 2. Feeling down, depressed, or hopeless: not at all 3. Trouble falling or staying asleep, or sleeping too much: not at all 4. Feeling tired or having little energy: not at all 5. Poor appetite or overeating: not at all 6. Feeling bad about yourself - or that you are a failure or have let yourself or your family down: not at all 7. Trouble concentrating on things, such as reading the newspaper or watching television: not at all 8. Moving or speaking so slowly that other people could have noticed. Or the opposite - being so fidgety or restless that you have been moving around a lot more than usual: not at all 9. Thoughts that you would be better off or of hurting yourself in some way: not at all Total score: 0 Depression Screening Interpretation: Negative Depression Screening Done: Yes 50654 - PHQ-9 Billing: Yes Source: Developed by Drs. Carroll Power, Chiquita Porter, Rod Branham and colleagues, with an educational tuan from [employer]. Thrive Questionnaire Date Thrive assessed: 11/02/24 I am a: Patient What is your living situation today?: I have a steady place to live Within the past 12 months, did the food you bought not last and you didn't have the money to get more?: Never true Within the past 12 months, did you worry whether your food would run out before you got money to buy more?: Never true Do you have trouble paying for medicines?: No Do you have trouble getting transportation to medical appointments?: No Do you have trouble paying your heating and electricity bill?: No Do you have trouble taking care of your child, family member or friend?: No Do you have trouble with day-to-day activities such as bathing, preparing meals, shopping, managing finances, etc.?: No Are you currently unemployed and looking for a job?: No Are you interested in more education?: No Please select the resources that you would like help with: None Currently or been in a relationship where the following occur: No concerns reported THRIVE Score: 0 AUDIT C Alcohol Use Questionnaire (AUDIT-C) 1. How often do you have a drink containing alcohol?: 2-4 times a month 2. How many drinks containing alcohol do you have on a typical day when you are drinking?: 1 or 2 3. How often do you have six or more drinks on one occasion?: Never Total Score: 2 Score Reviewed/Action Taken: Yes VIKTORIA-7 AMB Questionnaire VIKTORIA-7 Date VIKTORIA - 7 assessed: 11/02/24 Feeling nervous, anxious, or on edge: 0 = Not at all Not being able to stop or control worryin = Not at all Worrying too much about different things: 0 = Not at all Trouble relaxin = Not at all Being so restless that it is hard to sit still: 0 = Not at all Becoming easily annoyed or irritable: 0 = Not at all Feeling afraid as if something awful might happen: 0 = Not at all Total VIKTORIA-7 score (0-4 normal; 5-9 mild; 10-14 moderate; 15-21 severe): 0 Source: Developed by Drs. Carroll Power, Chiquita Poretr, Rod Branham and colleagues, with an educational tuan from [employer]. Review of Systems Const Denies chills, Denies fatigue, Denies fever(s) and Denies headache(s) ENT Denies dysphagia, Denies dizziness, Denies otalgia, Denies headache(s), Denies neck pain, Denies odynophagia and Denies sore throat Card Denies chest pain, Denies palpitations and Denies dyspnea Resp Denies chest congestion, Denies cough and Denies dyspnea GI Denies abdominal pain, Denies constipation, Denies dysphagia, Denies heartburn, Denies diarrhea, Denies nausea, Denies odynophagia and Denies vomiting Denies difficulty urinating, Denies dysuria, Denies nocturia and Denies urinary frequency Musc Reports back pain (over the lower back - chronic), Reports arthralgias (involving both knees, on and off) and Denies neck pain Skin/Breast Denies rash Neuro Denies dizziness and Denies headache(s) Endo Denies fatigue and Denies palpitations Physical exam (Primary Care) Vital Signs: Last Vital Signs Pulse 88 11/02/24 10:12 BP 110/76 11/02/24 10:12 Pulse Ox 95 11/02/24 10:12 Oxygen Delivery Method Room Air 11/02/24 10:12 BMI result Body Mass Index 31.9 Tobacco/Smoking Status: Tobacco use Status Tobacco use date assessed 11/02/24 11/02/24 10:18 Patient Tobacco Use Status Former Tobacco user 11/02/24 10:18 Tobacco use type Cigarette 11/02/24 10:18 e-Cigarette/Vaping Use Never Used 11/02/24 10:18 PHQ-9: PHQ-9 Score PHQ-9: Total score 0 11/02/24 10:40 Depression Screening Interpretation: Negative Thrive Assessment: Date of Thrive Assessment Date Thrive assessed 11/02/24 11/02/24 10:18 Currently or been in a relationship where the following occur: No concerns reported Const General: no acute distress and alert HENMT Ears: TM's normal bilaterally and EAC's normal Throat: Yes posterior oropharynx normal and Yes tonsils normal (no TP congestion) Neck Neck: Yes supple and No lymphadenopathy Thyroid: Thyroid normal Resp Auscultation: clear to auscultation bilaterally, no rales and no wheezes Cardio Rate: regular rate Rhythm: regular rhythm Heart sounds: no murmurs GI Palpation (GI): Soft to palpation and nontender Auscultation: normal bowel sounds General: Yes no CVA tenderness Back/Spine/Pelvis Back: no CVA tenderness Thoracic/Lumbar Spine: lumbar spinal tenderness (chronic) Skin Rashes: no rashes Extrem General: Yes no clubbing, cyanosis or edema Coding Level of Care Code Est Pt Level 3 (97635) Diagnoses Failed back syndrome M96.1 HLA-B27 spondyloarthropathy M47.899 Mild intermittent asthma without complication J45.20 Asthma severity: mild Asthma persistence: intermittent Asthma complication type: uncomplicated GERD without esophagitis K21.9 Allergic rhinitis, unspecified seasonality, unspecified trigger J30.9 Allergic rhinitis trigger: unspecified Allergic rhinitis seasonality: unspecified Obesity (BMI 30-39.9) E66.9 Additional Codes PHQ-9 - 06673 - PHQ-9 Billing: Yes ([id number]) Assessment & Plan Assessment & Plan (1) Failed back syndrome: Code(s): M96.1 - Postlaminectomy syndrome, not elsewhere classified Category: Medical Plan: Reinforced activity and weight-lifting restrictions Continue Oxycodone 10 mg Q 8 hours PRN for pain - Rx refilled today Patient was referred to pain management late last year but states that he has not yet heard back from pain management about scheduling an appointment - referral was renewed a couple of months ago (2) HLA-B27 spondyloarthropathy: Comment: Mark: April 2017-07/2023 Dc due to secondary non-response Humira 07/2023 Code(s): M47.899 - Other spondylosis, site unspecified Category: Surgical Plan: Continue Humira 40 mg SQ every 2 weeks Follow up with rheumatology as scheduled - he is now seeing Dr. oR at [facility] Rheumatology (3) Asthma: Code(s): J45.909 - Unspecified asthma, uncomplicated Category: Medical Qualifiers: Asthma severity: mild Asthma persistence: intermittent Asthma complication type: uncomplicated Qualified Code(s): J45.20 - Mild intermittent asthma, uncomplicated Plan: Controlled Continue Albuterol HFA 1 to 2 inhalations every 6 hours PRN (4) GERD without esophagitis: Code(s): K21.9 - Gastro-esophageal reflux disease without esophagitis Category: Medical Plan: Dietary restrictions reinforced Continue Omeprazole 20 mg QD (5) Allergic rhinitis: Code(s): J30.9 - Allergic rhinitis, unspecified Category: Medical Qualifiers: Allergic rhinitis trigger: unspecified Allergic rhinitis seasonality: unspecified Qualified Code(s): J30.9 - Allergic rhinitis, unspecified Plan: Continue Fluticasone 50 mcg nasal spray QD PRN (6) Obesity (BMI 30-39.9): Code(s): E66.9 - Obesity, unspecified Category: Medical Plan: Reinforced diet; exercise and weight loss are not practical given patient's multiple comorbidities and physical issues Plan Follow-up as scheduled in 1 month Medications: Refilled oxycodone 10 mg PO Q8H PRN 84 tabs 0RF pain 28 days
[2024-11-02 10:12] VITALS: BP 110/76; PULSE 88; O2SAT 95; BMI 31.9
--- OUTSIDE RECORDS SUMMARY | 2024-11-02 10:40 | XMS_ITS | Patient Health Record ---
Author Organization [facility] Address [address] [place] [address] Care Team Providers Care Nurses Aide Name Role Phone Thu GIANG, Roldan Primary Care Provider Carroll Wright Unavailable [phone] Allergies Allergen (clinical drug ingredient) Drug/Non Drug [...] Status Risk Notes Problem Blood in stool (010088996) Blood in stool (578.1) Active confirmed Problem Family history o f malignant neoplasm of gastrointestinal tract (V16.0) Active confirmed Plan Of Treatment Future Test Test Name Order Date COLONOSCOPY 06/05/2011 Insurance Providers Payer Name Payer Address Payer Phone Subscriber Number Group Number Insured Name Patient Relationship to Insured Coverage Start Date Coverage End Date MEDICAID OF [facility] [address] [place] [phone] [id number] RENÉ MOE Self - patient is the insured Medical (General) History Medical History History ICD Code Denies [place],DM,CVA,Lung disease,renal dise ase Surgical History Surgery Date(Month/Year) 3 back surgeries knee hernia
--- OUTSIDE RECORDS SUMMARY | 2024-11-02 10:40 | XMS_ITS | Clinical Summary ---
Author Organization [facility] Address [address] [place] [address] Care Team Providers Care Production Manager Name Role Phone Roldan Andino MD Primary Care Provider [phone] Social History Tobacco Use Types Packs/Day Years [...] age to complete this topic Care Teams Production Manager Relationship Specialty Start Date End Date Roldan Andino MD [address] [place] [address] Drive [address] [place] [address] PCP - General Internal Medicine 08/18/17
== END 2024-11-02 10:58 | disposition home or self-care (01) ==
PROVIDERS: PCP Internal Medicine; Visit Provider Internal Medicine
DX: J45.20 Mild intermittent asthma, uncomplicated (principal); M96.1 Postlaminectomy syndrome, not elsewhere classified; E66.9 Obesity, unspecified; Z68.31 Body mass index [BMI] 31.0-31.9, adult; M47.899 Other spondylosis, site unspecified; K21.9 Gastro-esophageal reflux disease without esophagitis; J30.9 Allergic rhinitis, unspecified

== ENCOUNTER → 2024-11-02 10:09 | Outpatient (BNVA) | payer OTHER, SELFPAY | PROVIDERS: PCP Internal Medicine; Visit Provider Internal Medicine | DX: K21.9 Gastro-esophageal reflux disease without esophagitis (principal); M96.1 Postlaminectomy syndrome, not elsewhere classified; M47.899 Other spondylosis, site unspecified; J45.20 Mild intermittent asthma, uncomplicated; J30.9 Allergic rhinitis, unspecified; E66.9 Obesity, unspecified; Z68.31 Body mass index [BMI] 31.0-31.9, adult | CPT/HCPCS: 96127; 99212 ==

== ENCOUNTER 2024-11-23 14:32 | Outpatient (AMB) | payer OTHER, SELFPAY ==
[2024-11-23 14:40] VITALS: BP 120/75; PULSE 80; RESP 16; O2SAT 97; BMI 32.1
--- NOTE | 2024-11-23 14:40 | MHC.OFFVIS ---
Vital Signs 11/23/24 14:40 Height 6 ft Weight 237 lb BMI 32.1 BP 120/75 Blood Pressure Location Rt brachial Position Sitting Respiration 16 Pulse 80 Pulse Source Pulse Oximeter Pulse Oximetry (%) 97 Oxygen Delivery Method Room Air 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: Back pain Digital Watch Assembler Required: No Accompanied by: Self / Same As Patient Allergies naproxen Allergy (Severe, Verified 11/23/24 15:06) Anaphylaxis seasonal allergies Allergy (Unknown, Uncoded 11/02/24 10:41) Unknown HPI Comments Details: The patient is a 59-year-old male presenting with chronic lower back pain and bilateral knee pain. The lower back pain has persisted for greater than 10 years, with a history of multiple back surgeries, including an L5-S1 fusion approximately a decade ago. The patient reports having undergone four surgeries, with the last one occurring around 2016, performed by a neurosurgeon and [place]. The pain radiates down both legs to the feet and occasionally to the toes, significantly affecting mobility and daily activities. The patient experiences tenderness in the lower back and reports difficulty sitting, standing, or lying down for extended periods. Denies red flag symptoms including new loss of bowel, bladder or saddle anesthesia. Denies weakness of his legs or recent falls. Bilateral knee pain has been a concern, and recently, the patient has developed elbow pain, which started about two weeks ago. The patient has not had recent imaging or physical therapy, and an open MRI is planned due to claustrophobia. The patient has a documented allergic reaction to naproxen, which resulted in an emergency visit due to a severe reaction. The patient avoids naproxen and has not experienced similar reactions with other medications. Patient had x-ray in 2022, results as per below. Denies any recent MRI. Denies any recent attempts at physical therapy. He is currently prescribed oxycodone 10 mg 3 times daily by his PCP which is the only thing that gives him some relief. - Onset: Chronic lower back pain persisting for several years - Quality: Pain described as radiating down both legs to the feet and occasionally to the toes - Location: Lower back with radiation to legs and feet - Exacerbating factors: Sitting, standing, or lying down for extended periods - Relieving factors: Not explicitly discussed - Interference: Significant impact on mobility and daily activities - Affect: Pain significantly impacts daily activities and mobility - Analgesia: Currently using oxycodone for pain management - Adverse Effects: Weight gain associated with gabapentin use - Activities of Daily Living: Difficulty with prolonged sitting, standing, or lying down - Aberrant Drug Related Behaviors: None reported [facility] Medical History Obesity (BMI 30-39.9) Allergic rhinitis GERD without esophagitis Obesity Asthma Failed back syndrome Hx of hemorrhoids Hx of osteoarthritis Family history of GERD Hx of gout History of rectal bleeding Surgical History HLA-B27 spondyloarthropathy History of arthroscopy of right knee History of inguinal hernia repair History of adenoidectomy History of lumbar surgery History of back surgery Hx of knee surgery Hx of tonsillectomy Family History Mother Pancreas cancer Diabetes Father Prostate cancer Rheumatoid arthritis Brother Diabetes Sister Diabetes Daughter No problems noted. Social History Housing: House Alcohol intake: current Alcohol intake frequency: holidays/special occasions only Patient Tobacco Use Status: Former Tobacco user Tobacco use type: Cigarette e-Cigarette/Vaping Use: Never Used Second Hand Smoke Exposure: Yes service: No Current occupational status: disabled Current occupational exposures/hazards: No Cognitive needs: No Hearing needs: No Vision needs: No Review of Systems Const Details: - Musculoskeletal: Reports chronic lower back pain radiating to legs, bilateral knee pain, and recent elbow pain - Neurological: Denies shooting or zapping pains - Allergic/Immunologic: Reports allergic reaction to naproxen Physical Exam Exam Exam: General: awake, alert, oriented. Answers questions appropriately. Fully engaged in examination. Skin: warm, dry, intact HEENT: Normocephalic. Hearing intact. Cardiac: External chest normal in appearance. Respiratory: No cough, audible wheezing or stridor. Abdomen: without gross distension. MS: No obvious swelling or deformities. SLR negative bilaterally Able to transition from sit to stand unassisted. Ambulates with bilaterally normal heel strike and toe off Tenderness over midline lumbar vertebrae and lumbar paraspinal muscles Tenderness over bilateral PSIS. Thigh thrust negative, Gaenslen negative, SI compression negative bilaterally Bilateral lower extremity strength 5/5 Well-healed surgical scars over lumbar area Valsalva negative Neurological: Oriented to person, place, time and situation. Thought process intact. No gait abnormalities appreciated. Psychiatric: Appropriate mood and affect. Good judgment and insight. Vital Signs: Last Vital Signs Pulse 80 11/23/24 14:40 Resp 16 11/23/24 14:40 BP 120/75 11/23/24 14:40 Pulse Ox 97 11/23/24 14:40 Oxygen Delivery Method Room Air 11/23/24 14:40 BMI result Body Mass Index 32.1 Results Reviewed Results Reviewed: 06/27/22 x-ray lumbar spine FINDINGS: There is normal lumbar segmentation with 5 nonrib-bearing lumbar vertebrae of normal height and normal lumbar lordosis. There are postsurgical changes with anterior lumbosacral fusion L5-S1 and disc spacer, and metallic plate between posterior spinous processes L3-L4. Hardware is intact. No destructive process or osteolysis. There is no vertebral compression there are anterior bridging osteophytes at L1-L2. There is a borderline grade 0-1 spondylolisthesis at L3-L4 mild degenerative changes SI joints. Sacrum are unremarkable. IMPRESSION: 1. Postsurgical changes. Hardware intact. No destructive process or osteolysis. 2. Borderline grade 0-1 spondylolisthesis L3-L4. 3. Bridging anterior osteophytes L1-L2. 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 Physical therapy is recommended to enhance core strength and mobility, with a referral to [facility] for the patient's request. The patient should avoid naproxen due to a previous allergic reaction and continue using oxycodone for pain relief. Future interventions may include a spinal cord stimulator trial, contingent on MRI findings and the patient's response to current treatments. A mental health evaluation will be necessary if a spinal cord stimulator is pursued, as per insurance requirements. Patient was given spinal cord stimulator pamphlet for review at home. Patient was informed and verbally consented to the use of an ambient scribe for clinic note documentation during this visit. Orders: Orders MR lumbar spine wo/w con Today G89.4 - Chronic pain syndrome, M47.816 - Spondylosis without myelopathy or radiculopathy, lumbar region, M54.9 - Dorsalgia, unspecified, M96.1 - Postlaminectomy syndrome, not elsewhere classified PT Evaluation and Treatment Today G89.4 - Chronic pain syndrome, M47.816 - Spondylosis without myelopathy or radiculopathy, lumbar region, M96.1 - Postlaminectomy syndrome, not elsewhere classified Patient Instructions: - Schedule an open MRI at [facility] to evaluate your lower back. - Attend physical therapy sessions at [facility] to strengthen core muscles. - Avoid using naproxen due to previous allergic reaction. - Continue taking oxycodone as prescribed for pain management. - Consider discussing the spinal cord stimulator trial with your doctor after MRI results are available. Coding Level of Care Code New Pt Level 4 (31229) Complex EM visit Add On G2211 Diagnoses Chronic pain syndrome G89.4 Post laminectomy syndrome M96.1 bed bug exterminator prescription opiate use Z79.891 Lumbar spondylosis M47.816 Intractable back pain M54.9
--- OUTSIDE RECORDS SUMMARY | 2024-11-23 15:06 | XMS_ITS | Patient Health Record ---
Author Organization [facility] Address [address] [place] [address] Care Team Providers Care Pug Mill Operator Name Role Phone Thu GIANG, Roldan Primary Care Provider Carroll Wright Unavailable [phone] Allergies Allergen (clinical drug ingredient) Drug/Non Drug [...] Status Risk Notes Problem Blood in stool (825571367) Blood in stool (578.1) Active confirmed Problem Family history of malignant neoplasm of gastrointestinal tract (217905829) Family history of malignant neoplasm of gastrointestinal tract (V16.0) Active confirmed Plan Of Treatment Future Test Test Name Order Date COLONOSCOPY 06/05/2011 Insurance Providers Payer Name Payer Address Payer Phone Subscriber Number Group Number Insured Name Patient Relationship to Insured Coverage Start Date Coverage End Date MEDICAID OF [facility] [address] [place] [phone] [id number] RENÉ MOE Self - patient is the insured Medical (General) History Medical History History ICD Code Denies [place],DM,CVA,Lung disease,renal dise ase Surgical History Surgery Date(Month/Year) 3 back surgeries knee hernia
--- OUTSIDE RECORDS SUMMARY | 2024-11-23 15:06 | XMS_ITS | Clinical Summary ---
Author Organization [facility] Address [address] [place] [address] Care Team Providers Care Extractor Tender Raw Stock Name Role Phone Roldan Andino MD Primary Care Provider [phone] Social History Tobacco Use Types Packs/Day Years [...] Panel) 12/01/2023 Colorectal Cancer Screening: Colonoscopy 12/01/2023 HIV Screening 12/01/2023 Hepatitis C Screening 12/01/2023 Social Influencers of Health Screening 12/01/2023 COVID-19 Vaccine (1 - 2023-2 5 season) 2024 Depression Screening 05/04/2024 Influenza Vaccine (#1) 2025 RSV Immunization Adult Patie nts (1 [...] age to complete this topic Care Teams Extractor Tender Raw Stock Relationship Specialty Start Date End Date Roldan Andino MD [address] [place] [address] [address] [place] [address] PCP - General Internal Medicine 08/18/17
== END 2024-11-23 15:36 | disposition home or self-care (01) ==
LOC: HO.PMC 14:33
PROVIDERS: PCP Internal Medicine; Visit Provider Registered Nurse Emergency
DX: G89.4 Chronic pain syndrome (principal); M96.1 Postlaminectomy syndrome, not elsewhere classified; Z79.891 Long term (current) use of opiate analgesic; M47.816 Spondylosis without myelopathy or radiculopathy, lumbar region; M54.9 Dorsalgia, unspecified
CPT/HCPCS: 99204; G2211

== ENCOUNTER → 2024-11-23 14:32 | Outpatient (BNVA) | payer OTHER, SELFPAY | PROVIDERS: PCP Internal Medicine; Visit Provider Registered Nurse Emergency | DX: M96.1 Postlaminectomy syndrome, not elsewhere classified (principal); M47.816 Spondylosis without myelopathy or radiculopathy, lumbar region; M54.9 Dorsalgia, unspecified; G89.4 Chronic pain syndrome; Z79.891 Long term (current) use of opiate analgesic | CPT/HCPCS: 99202 ==

== ENCOUNTER 2024-11-30 10:09 | Outpatient (AMB) | payer OTHER, SELFPAY ==
[2024-11-30 10:15] VITALS: BP 118/72; PULSE 74; O2SAT 95; BMI 31.9
--- NOTE | 2024-11-30 10:15 | MHC.PC.OV ---
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: No Accompanied by: Self / Same As Patient Allergies naproxen Allergy (Severe, Verified 11/30/24 10:37) Anaphylaxis seasonal allergies Allergy (Unknown, Uncoded 11/30/24 10:37) Unknown Medication List - Last Reconciled 11/30/24 by Charles Marsh MD adalimumab (Humira(CF) Pen) 40 mg (0.4 mL) subcut Q2W albuterol sulfate 90 mcg/actuation 2 puffs inhalation Q6H PRN 30 days fluocinonide 0.05% appl topical fluticasone propionate 50 mcg/actuation 1 spray intranasal BID omeprazole 20 mg PO DAILY oxycodone 10 mg PO Q8H PRN 28 days sildenafil (Viagra) 50 mg PO DAILY PRN tacrolimus 0.1% 1 appl topical BID tacrolimus 0.1% 1 appl topical BID triamcinolone acetonide 0.5% 1 appl topical TID Tobacco use date assessed: 11/30/24 Dental Screening Dental Screen Date: 11/30/24 Did you have a dental visit in the last 12 months?: Yes Did you have a dental problem in the last 6 months where you did not have access to dental care?: No Was dental information given to patient?: Patient has dentist HPI MED MANAGEMENT HPI Details Patient comes in today for his follow up visit States that he feels okay He denies any headaches or dizziness Denies any chest pains, no increased shortness of breath No nausea/vomiting, no abdominal pain No change in bowel habits noted States that his chronic low back pain and joint pains remain adequately controlled on his current Rx and he just needs his pain med Rx refilled today He continues to follow up with rheumatology regularly for his HLA-B27 spondyloarthropathy and has been doing well on Humira for a few years now He was seen by pain management last week and states that he is being sent for an MRI for further evaluation - this is still awaiting scheduling [facility] Medical History Obesity (BMI 30-39.9) Allergic rhinitis GERD without esophagitis Obesity Asthma Failed back syndrome Hx of hemorrhoids Hx of osteoarthritis Family history of GERD Hx of gout History of rectal bleeding Surgical History HLA-B27 spondyloarthropathy History of arthroscopy of right knee History of inguinal hernia repair History of adenoidectomy History of lumbar surgery History of back surgery Hx of knee surgery Hx of tonsillectomy Family History Mother Pancreas cancer Diabetes Father Prostate cancer Rheumatoid arthritis Brother Diabetes Sister Diabetes Daughter No problems noted. Social History Housing: House Alcohol intake: current Alcohol intake frequency: holidays/special occasions only Patient Tobacco Use Status: Former Tobacco user Tobacco use type: Cigarette e-Cigarette/Vaping Use: Never Used Second Hand Smoke Exposure: Yes service: No Current occupational status: disabled Current occupational exposures/hazards: No Cognitive needs: No Hearing needs: No Vision needs: No Questionnaire PHQ-9 Over the last 2 weeks, how often have you been bothered by any of the following problems? 1. Little interest or pleasure in doing things: not at all 2. Feeling down, depressed, or hopeless: not at all 3. Trouble falling or staying asleep, or sleeping too much: not at all 4. Feeling tired or having little energy: not at all 5. Poor appetite or overeating: not at all 6. Feeling bad about yourself - or that you are a failure or have let yourself or your family down: not at all 7. Trouble concentrating on things, such as reading the newspaper or watching television: not at all 8. Moving or speaking so slowly that other people could have noticed. Or the opposite - being so fidgety or restless that you have been moving around a lot more than usual: not at all 9. Thoughts that you would be better off or of hurting yourself in some way: not at all Total score: 0 Depression Screening Interpretation: Negative Depression Screening Done: Yes 38869 - PHQ-9 Billing: Yes Source: Developed by Drs. Carroll Power, Chiquita Porter, Rod Branham and colleagues, with an educational tuan from [employer]. Thrive Questionnaire Date Thrive assessed: 11/02/24 Currently or been in a relationship where the following occur: No concerns reported THRIVE Score: 0 VIKTORIA-7 AMB Questionnaire VIKTORIA-7 Date VIKTORIA - 7 assessed: 11/02/24 Source: Developed by Drs. Carroll Power, Chiquita Porter, Rod Branham and colleagues, with an educational tuan from [employer]. Review of Systems Const Denies chills, Denies fatigue, Denies fever(s) and Denies headache(s) ENT Denies dysphagia, Denies dizziness, Denies otalgia, Denies headache(s), Denies neck pain, Denies odynophagia and Denies sore throat Card Denies chest pain, Denies palpitations and Denies dyspnea Resp Denies chest congestion, Denies cough and Denies dyspnea GI Denies abdominal pain, Denies constipation, Denies dysphagia, Denies heartburn, Denies diarrhea, Denies nausea, Denies odynophagia and Denies vomiting Denies difficulty urinating, Denies dysuria, Denies nocturia and Denies urinary frequency Musc Reports back pain (over the lower back - chronic), Reports arthralgias (involving both knees, on and off) and Denies neck pain Skin/Breast Denies rash Neuro Denies dizziness and Denies headache(s) Endo Denies fatigue and Denies palpitations Physical exam (Primary Care) Vital Signs: Last Vital Signs Pulse 74 11/30/24 10:15 BP 118/72 11/30/24 10:15 Pulse Ox 95 11/30/24 10:15 Oxygen Delivery Method Room Air 11/30/24 10:15 BMI result Body Mass Index 31.9 Tobacco/Smoking Status: Tobacco use Status Tobacco use date assessed 11/30/24 11/30/24 10:19 Patient Tobacco Use Status Former Tobacco user 11/30/24 10:19 Tobacco use type Cigarette 11/30/24 10:19 e-Cigarette/Vaping Use Never Used 11/30/24 10:19 PHQ-9: PHQ-9 Score PHQ-9: Total score 0 11/30/24 10:19 Depression Screening Interpretation: Negative Thrive Assessment: Date of Thrive Assessment Date Thrive assessed 11/02/24 11/30/24 10:19 Currently or been in a relationship where the following occur: No concerns reported Const General: no acute distress and alert HENMT Throat: Yes posterior oropharynx normal and Yes tonsils normal (no TP congestion) Neck Neck: Yes supple and No lymphadenopathy Thyroid: Thyroid normal Resp Auscultation: clear to auscultation bilaterally, no rales and no wheezes Cardio Rate: regular rate Rhythm: regular rhythm Heart sounds: no murmurs GI Palpation (GI): Soft to palpation and nontender Auscultation: normal bowel sounds General: Yes no CVA tenderness Back/Spine/Pelvis Back: no CVA tenderness Thoracic/Lumbar Spine: lumbar spinal tenderness (chronic) Skin Rashes: no rashes Extrem General: Yes no clubbing, cyanosis or edema Coding Level of Care Code Est Pt Level 3 (95292) Diagnoses Failed back syndrome M96.1 HLA-B27 spondyloarthropathy M47.899 Mild intermittent asthma without complication J45.20 Asthma severity: mild Asthma persistence: intermittent Asthma complication type: uncomplicated GERD without esophagitis K21.9 Allergic rhinitis, unspecified seasonality, unspecified trigger J30.9 Allergic rhinitis trigger: unspecified Allergic rhinitis seasonality: unspecified Obesity (BMI 30-39.9) E66.9 Additional Codes PHQ-9 - 36710 - PHQ-9 Billing: Yes ([id number]) Assessment & Plan Assessment & Plan (1) Failed back syndrome: Code(s): M96.1 - Postlaminectomy syndrome, not elsewhere classified Category: Medical Plan: Reinforced activity and weight-lifting restrictions Continue Oxycodone 10 mg Q 8 hours PRN for pain - Rx refilled today Patient was seen by pain management last week and is currently waiting for his MRI to be scheduled (2) HLA-B27 spondyloarthropathy: Comment: Enbrel: April 2017-07/2023 Dc due to secondary non-response Humira 07/2023 Code(s): M47.899 - Other spondylosis, site unspecified Category: Surgical Plan: Continue Humira 40 mg SQ every 2 weeks Follow up with [facility] (Dr. Ro) as scheduled (3) Asthma: Code(s): J45.909 - Unspecified asthma, uncomplicated Category: Medical Qualifiers: Asthma severity: mild Asthma persistence: intermittent Asthma complication type: uncomplicated Qualified Code(s): J45.20 - Mild intermittent asthma, uncomplicated Plan: Controlled Continue Albuterol HFA 1 to 2 inhalations every 6 hours PRN (4) GERD without esophagitis: Code(s): K21.9 - Gastro-esophageal reflux disease without esophagitis Category: Medical Plan: Dietary restrictions reinforced Continue Omeprazole 20 mg QD (5) Allergic rhinitis: Code(s): J30.9 - Allergic rhinitis, unspecified Category: Medical Qualifiers: Allergic rhinitis trigger: unspecified Allergic rhinitis seasonality: unspecified Qualified Code(s): J30.9 - Allergic rhinitis, unspecified Plan: Continue Fluticasone 50 mcg nasal spray QD PRN (6) Obesity (BMI 30-39.9): Code(s): E66.9 - Obesity, unspecified Category: Medical Plan: Reinforced diet; exercise and weight loss are not practical given patient's multiple comorbidities and physical issues Plan To return as scheduled in 2 weeks for his annual physical examination He is instructed to get his follow up labs done (ordered today) a few days before he comes in for his annual PE Orders: Orders Comprehensive [place]. Panel Fast 12/11/24 E78. - Pure hypercholesterolemia, unspecified, Z00. - Encounter for general adult medical examination without abnormal findings Lipid Panel 12/11/24 E78.00 - Pure hypercholesterolemia, unspecified, Z00. - Encounter for general adult medical examination without abnormal findings UA CC w/rflx Micro + Cult 12/11/24 R30.0 - Dysuria, Z. - Encounter for general adult medical examination without abnormal findings Vitamin B12 and Folate 12/11/24 E53.8 - Deficiency of other specified B group vitamins, Z. - Encounter for general adult medical examination without abnormal findings Vitamin D 25-OH Total 12/11/24 E55.9 - Vitamin D deficiency, unspecified, Z00. - Encounter for general adult medical examination without abnormal findings C Reactive Protein 12/11/24 M47.899 - Other spondylosis, site unspecified Complete Blood Count Auto Diff 12/11/24 D64.9 - Anemia, unspecified, Z00. - Encounter for general adult medical examination without abnormal findings TSH reflex Free T4 12/11/24 E78.00 - Pure hypercholesterolemia, unspecified, Z. - Encounter for general adult medical examination without abnormal findings Prostate Specific Antigen Scr 12/11/24 Z00.00 - Encounter for general adult medical examination without abnormal findings Erythrocyte Sedimentation Rate 12/11/24 M47.899 - Other spondylosis, site unspecified Medications: Refilled oxycodone 10 mg PO Q8H PRN 84 tabs 0RF pain 28 days
--- OUTSIDE RECORDS SUMMARY | 2024-11-30 10:59 | XMS_ITS | Patient Health Record ---
Author Organization [facility] Address [address] [place] [address] Care Team Providers Care Electronic Engineering Technician Name Role Phone Thu GIANG, Roldan Primary Care Provider Carroll Wright Unavailable [phone] Allergies Allergen (clinical drug ingredient) Drug/Non Drug [...] Status Risk Notes Problem Blood in stool (982911280) Blood in stool (578.1) Active confirmed Problem Family history of malignant neoplasm of gastrointestinal tract (026316118) Family history of malignant neoplasm of gastrointestinal tract (V16.0) Active confirmed Plan Of Treatment Future Test Test Name Order Date COLONOSCOPY 06/05/2011 Insurance Providers Payer Name Payer Address Payer Phone Subscriber Number Group Number Insured Name Patient Relationship to Insured Coverage Start Date Coverage End Date MEDICAID OF [facility] [address] [place] [phone] [id number] RENÉ MOE Self - patient is the insured Medical (General) History Medical History History ICD Code Denies [place],DM,CVA,Lung disease,renal dise ase Surgical History Surgery Date(Month/Year) 3 back surgeries knee hernia
--- OUTSIDE RECORDS SUMMARY | 2024-11-30 10:59 | XMS_ITS | Clinical Summary ---
Author Organization [facility] ity Address [address] [place] [address] Care Team Providers Care Front End Engineer Name Role Phone Roldan Andino MD Primary Care Provider [phone] Social History Tobacco Use Types Packs/Day Years [...] age to complete this topic Care Teams Front End Engineer Relationship Specialty Start Date End Date Roldan Andino MD [address] [place] [address] [address] [place] [address] PCP - General Internal Medicine 08/18/17
== END 2024-11-30 10:35 | disposition home or self-care (01) ==
LOC: HO.HMCH 10:10
PROVIDERS: PCP Internal Medicine; Visit Provider Internal Medicine
DX: M96.1 Postlaminectomy syndrome, not elsewhere classified (principal); M47.899 Other spondylosis, site unspecified; E66.9 Obesity, unspecified; Z68.31 Body mass index [BMI] 31.0-31.9, adult; J45.20 Mild intermittent asthma, uncomplicated; K21.9 Gastro-esophageal reflux disease without esophagitis; J30.9 Allergic rhinitis, unspecified

== ENCOUNTER → 2024-11-30 10:09 | Outpatient (BNVA) | payer OTHER, SELFPAY | PROVIDERS: PCP Internal Medicine; Visit Provider Internal Medicine | DX: M96.1 Postlaminectomy syndrome, not elsewhere classified (principal); M47.899 Other spondylosis, site unspecified; J45.909 Unspecified asthma, uncomplicated; K21.9 Gastro-esophageal reflux disease without esophagitis; E66.9 Obesity, unspecified; Z68.31 Body mass index [BMI] 31.0-31.9, adult; Z79.899 Other long term (current) drug therapy | CPT/HCPCS: 96127; 99212 ==

== ENCOUNTER 2024-12-28 09:42 | Outpatient (AMB) | payer OTHER, SELFPAY ==
--- NOTE | 2024-12-28 09:39 | MHC.PC.OV ---
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: MED MANAGEMENT Allergies naproxen Allergy (Severe, Verified 12/28/24 10:42) Anaphylaxis seasonal allergies Allergy (Unknown, Uncoded 12/28/24 10:42) Unknown Medication List - Last Reconciled 12/28/24 by Charles Marsh MD adalimumab (Humira(CF) Pen) 40 mg (0.4 mL) subcut Q2W albuterol sulfate 90 mcg/actuation 2 puffs inhalation Q6H PRN 30 days fluocinonide 0.05% appl topical fluticasone propionate 50 mcg/actuation 1 spray intranasal BID omeprazole 20 mg PO DAILY oxycodone 10 mg PO Q8H PRN 28 days sildenafil (Viagra) 50 mg PO DAILY PRN tacrolimus 0.1% 1 appl topical BID tacrolimus 0.1% 1 appl topical BID triamcinolone acetonide 0.5% 1 appl topical TID Tobacco use date assessed: 12/28/24 Dental Screening Dental Screen Date: 12/28/24 Did you have a dental visit in the last 12 months?: Yes Did you have a dental problem in the last 6 months where you did not have access to dental care?: No Was dental information given to patient?: Patient has dentist HPI MED MANAGEMENT HPI Details Patient's follow-up visit / consultation today is done over the phone - this is a Telehealth visit Patient's current medications have been reviewed and verified with patient and / or caregiver / proxy and have been updated accordingly in the medication list States that he had to change his original appointment for annual PE this month over to next month as he had to leave for [place] because of a family emergency and he is currently still in [place] States that he feels okay and mostly just needs his Oxycodone Rx refilled today He denies any headaches or dizziness Denies any chest pains, no increased shortness of breath No nausea/vomiting, no abdominal pain No change in bowel habits noted States that his chronic low back pain and joint pains remain adequately controlled on his current Rx He was not able to get his follow up labs done yet and will go and get them done as soon as he gets back in town in a week or so [facility] Medical History Obesity (BMI 30-39.9) Allergic rhinitis GERD without esophagitis Obesity Asthma Failed back syndrome Hx of hemorrhoids Hx of osteoarthritis Family history of GERD Hx of gout History of rectal bleeding Surgical History HLA-B27 spondyloarthropathy History of arthroscopy of right knee History of inguinal hernia repair History of adenoidectomy History of lumbar surgery History of back surgery Hx of knee surgery Hx of tonsillectomy Family History Mother Pancreas cancer Diabetes Father Prostate cancer Rheumatoid arthritis Brother Diabetes Sister Diabetes Daughter No problems noted. Social History Housing: House Alcohol intake: current Alcohol intake frequency: holidays/special occasions only Patient Tobacco Use Status: Former Tobacco user Tobacco use type: Cigarette e-Cigarette/Vaping Use: Never Used Second Hand Smoke Exposure: Yes service: No Current occupational status: disabled Current occupational exposures/hazards: No Cognitive needs: No Hearing needs: No Vision needs: No Questionnaire PHQ-9 Over the last 2 weeks, how often have you been bothered by any of the following problems? 1. Little interest or pleasure in doing things: not at all 2. Feeling down, depressed, or hopeless: not at all 3. Trouble falling or staying asleep, or sleeping too much: not at all 4. Feeling tired or having little energy: not at all 5. Poor appetite or overeating: not at all 6. Feeling bad about yourself - or that you are a failure or have let yourself or your family down: not at all 7. Trouble concentrating on things, such as reading the newspaper or watching television: not at all 8. Moving or speaking so slowly that other people could have noticed. Or the opposite - being so fidgety or restless that you have been moving around a lot more than usual: not at all 9. Thoughts that you would be better off or of hurting yourself in some way: not at all Total score: 0 Depression Screening Interpretation: Negative Depression Screening Done: Yes 27963 - PHQ-9 Billing: Yes Source: Developed by Drs. Carroll Power, Chiquita Porter, Rod Branham and colleagues, with an educational tuan from [employer]. Thrive Questionnaire Date Thrive assessed: 11/02/24 I am a: Patient What is your living situation today?: I have a steady place to live Within the past 12 months, did the food you bought not last and you didn't have the money to get more?: Never true Within the past 12 months, did you worry whether your food would run out before you got money to buy more?: Never true Do you have trouble paying for medicines?: No Do you have trouble getting transportation to medical appointments?: No Do you have trouble paying your heating and electricity bill?: No Do you have trouble taking care of your child, family member or friend?: No Do you have trouble with day-to-day activities such as bathing, preparing meals, shopping, managing finances, etc.?: No Are you currently unemployed and looking for a job?: No Are you interested in more education?: No Please select the resources that you would like help with: None Currently or been in a relationship where the following occur: No concerns reported THRIVE Score: 0 AUDIT C Alcohol Use Questionnaire (AUDIT-C) 1. How often do you have a drink containing alcohol?: 2-4 times a month 2. How many drinks containing alcohol do you have on a typical day when you are drinking?: 1 or 2 3. How often do you have six or more drinks on one occasion?: Never Total Score: 2 Score Reviewed/Action Taken: Yes VIKTORIA-7 AMB Questionnaire VIKTORIA-7 Date VIKTORIA - 7 assessed: 11/02/24 Feeling nervous, anxious, or on edge: 0 = Not at all Not being able to stop or control worryin = Not at all Worrying too much about different things: 0 = Not at all Trouble relaxin = Not at all Being so restless that it is hard to sit still: 0 = Not at all Becoming easily annoyed or irritable: 0 = Not at all Feeling afraid as if something awful might happen: 0 = Not at all Total VIKTORIA-7 score (0-4 normal; 5-9 mild; 10-14 moderate; 15-21 severe): 0 Source: Developed by Drs. Carroll Power, Chiquita Porter, Rod Branham and colleagues, with an educational tuan from [employer]. Review of Systems Const Denies chills, Denies fatigue, Denies fever(s) and Denies headache(s) ENT Denies dysphagia, Denies dizziness, Denies otalgia, Denies headache(s), Denies neck pain, Denies odynophagia and Denies sore throat Card Denies chest pain, Denies palpitations and Denies dyspnea Resp Denies chest congestion, Denies cough and Denies dyspnea GI Denies abdominal pain, Denies constipation, Denies dysphagia, Denies heartburn, Denies diarrhea, Denies nausea, Denies odynophagia and Denies vomiting Denies difficulty urinating, Denies dysuria, Denies nocturia and Denies urinary frequency Musc Reports back pain (over the lower back - chronic), Reports arthralgias (involving both knees, on and off) and Denies neck pain Skin/Breast Denies rash Neuro Denies dizziness and Denies headache(s) Endo Denies fatigue and Denies palpitations Physical exam (Primary Care) Vital Signs: Physical examination is not performed as visit / consultation today is done over the phone - Telehealth visit All physical findings indicated here, if present, are as per patient's and / or caregivers / proxy's report Tobacco/Smoking Status: Tobacco use Status Tobacco use date assessed 12/28/24 12/28/24 09:41 Patient Tobacco Use Status Former Tobacco user 12/28/24 09:41 Tobacco use type Cigarette 12/28/24 09:41 e-Cigarette/Vaping Use Never Used 12/28/24 09:41 PHQ-9: PHQ-9 Score PHQ-9: Total score 0 12/28/24 09:41 Depression Screening Interpretation: Negative Thrive Assessment: Date of Thrive Assessment Date Thrive assessed 11/02/24 12/28/24 09:41 Currently or been in a relationship where the following occur: No concerns reported Telehealth Telehealth Telehealth Platform: Telephone Location of provider rendering services: practice address Location of patient: address on file Patient Identification confirmed using: Name, : Yes Telehealth method: voice only Patient verbally consented to treatment: Yes Patient verbally consented to billing insurance company: Yes Patient informed of any privacy concerns related to visit: Yes Minutes spent on Phone/Video with Pt.: 15 Coding Level of Care Code Tele Est Pt Level 3 (25636) Diagnoses Failed back syndrome M96.1 HLA-B27 spondyloarthropathy M47.899 Mild intermittent asthma without complication J45.20 Asthma severity: mild Asthma persistence: intermittent Asthma complication type: uncomplicated GERD without esophagitis K21.9 Allergic rhinitis, unspecified seasonality, unspecified trigger J30.9 Allergic rhinitis trigger: unspecified Allergic rhinitis seasonality: unspecified Obesity (BMI 30-39.9) E66.9 Additional Codes PHQ-9 - 48107 - PHQ-9 Billing: Yes ([id number]) Assessment & Plan Assessment & Plan (1) Failed back syndrome: Code(s): M96.1 - Postlaminectomy syndrome, not elsewhere classified Category: Medical Plan: Reinforced activity and weight-lifting restrictions Continue Oxycodone 10 mg Q 8 hours PRN for pain - Rx refilled today Patient was seen by pain management last month and is currently still waiting for his MRI to be scheduled (2) HLA-B27 spondyloarthropathy: Comment: Mark: April 2017-07/2023 Dc due to secondary non-response Humira 07/2023 Code(s): M47.899 - Other spondylosis, site unspecified Category: Surgical Plan: Continue Humira 40 mg SQ every 2 weeks Follow up with [facility] Rheumatology (Dr. Ro) as scheduled (3) Asthma: Code(s): J45.909 - Unspecified asthma, uncomplicated Category: Medical Qualifiers: Asthma severity: mild Asthma persistence: intermittent Asthma complication type: uncomplicated Qualified Code(s): J45.20 - Mild intermittent asthma, uncomplicated Plan: Controlled Continue Albuterol HFA 1 to 2 inhalations every 6 hours PRN (4) GERD without esophagitis: Code(s): K21.9 - Gastro-esophageal reflux disease without esophagitis Category: Medical Plan: Dietary restrictions reinforced Continue Omeprazole 20 mg QD (5) Allergic rhinitis: Code(s): J30.9 - Allergic rhinitis, unspecified Category: Medical Qualifiers: Allergic rhinitis trigger: unspecified Allergic rhinitis seasonality: unspecified Qualified Code(s): J30.9 - Allergic rhinitis, unspecified Plan: Continue Fluticasone 50 mcg nasal spray QD PRN (6) Obesity (BMI 30-39.9): Code(s): E66.9 - Obesity, unspecified Category: Medical Plan: Reinforced diet; exercise and weight loss are not practical given patient's multiple comorbidities and physical issues Plan To return as scheduled next month for his annual physical examination Medications: Refilled oxycodone 10 mg PO Q8H PRN 84 tabs 0RF pain 28 days
--- OUTSIDE RECORDS SUMMARY | 2024-12-28 10:21 | XMS_ITS | Patient Health Record ---
Author Organization [facility] Address [address] [place] [address] Care Team Providers Care Lard Refiner Name Role Phone Thu GIANG, Roldan Primary Care Provider Carroll Wright Unavailable [phone] Allergies Allergen (clinical drug ingredient) Drug/Non Drug [...] Status Risk Notes Problem Blood in stool (684916779) Blood in stool (578.1) Active confirmed Problem Family history of malignant neoplasm of gastrointestinal tract (696931750) Family history of malignant neoplasm of gastrointestinal tract (V16.0) Active confirmed Plan Of Treatment Future Test Test Name Order Date COLONOSCOPY 06/05/2011 Insurance Providers Payer Name Payer Address Payer Phone Subscriber Number Group Number Insured Name Patient Relationship to Insured Coverage Start Date Coverage End Date MEDICAID OF [facility] [address] [place] [address] [id number] RENÉ MOE Self - patient is the insured Medical (General) History Medical History History ICD Code Denies PR,DM,CVA,Lung disease,renal dise ase Surgical History Surgery Date(Month/Year) 3 back surgeries knee hernia
--- OUTSIDE RECORDS SUMMARY | 2024-12-28 10:21 | XMS_ITS | Clinical Summary ---
Author Organization [facility] [employer] [facility] Address [address] [place] [address] Care Team Providers Care Laster Hand Name Role Phone Roldan Andino MD Primary Care Provider [phone] Social History Tobacco Use Types Packs/Day Years [...] age to complete this topic Care Teams Laster Hand Relationship Specialty Start Date End Date Roldan Andino MD [address] [place] [address] [address] [place] [address] PCP - General Internal Medicine 08/18/17
== END 2024-12-28 10:53 | disposition home or self-care (01) ==
LOC: HO.HMCH 09:42
PROVIDERS: PCP Internal Medicine; Visit Provider Internal Medicine
DX: M96.1 Postlaminectomy syndrome, not elsewhere classified (principal); M47.899 Other spondylosis, site unspecified; J45.20 Mild intermittent asthma, uncomplicated; K21.9 Gastro-esophageal reflux disease without esophagitis; J30.9 Allergic rhinitis, unspecified; E66.9 Obesity, unspecified

== ENCOUNTER → 2024-12-28 09:42 | Outpatient (BNVA) | payer OTHER, SELFPAY | PROVIDERS: PCP Internal Medicine; Visit Provider Internal Medicine | DX: K21.9 Gastro-esophageal reflux disease without esophagitis (principal); M96.1 Postlaminectomy syndrome, not elsewhere classified; M47.899 Other spondylosis, site unspecified; J45.20 Mild intermittent asthma, uncomplicated; J30.9 Allergic rhinitis, unspecified; E66.9 Obesity, unspecified | CPT/HCPCS: 96127 ==

== ENCOUNTER 2025-01-25 10:56 | Outpatient (AMB) | payer OTHER, SELFPAY ==
--- NOTE | 2025-01-25 10:57 | MHC.PC.OV ---
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 Appointment Required: No Accompanied by: Self / Same As Patient Allergies naproxen Allergy (Severe, Verified 01/25/25 11:04) Anaphylaxis seasonal allergies Allergy (Unknown, Uncoded 01/25/25 11:04) Unknown Medication List - Last Reconciled 01/25/25 by Charles Marsh MD adalimumab (Humira(CF) Pen) 40 mg (0.4 mL) subcut Q2W albuterol sulfate 90 mcg/actuation 2 puffs inhalation Q6H PRN 30 days fluocinonide 0.05% appl topical fluticasone propionate 50 mcg/actuation 1 spray intranasal BID omeprazole 20 mg PO DAILY oxycodone 10 mg PO Q8H PRN 28 days sildenafil (Viagra) 50 mg PO DAILY PRN tacrolimus 0.1% 1 appl topical BID tacrolimus 0.1% 1 appl topical BID triamcinolone acetonide 0.5% 1 appl topical TID Tobacco use date assessed: 01/25/25 Dental Screening Dental Screen Date: 01/25/25 HPI MED MANAGEMENT HPI Details Patient's follow-up visit / consultation today is done over the phone - this is a Telehealth visit Patient's current medications have been reviewed and verified with patient and / or caregiver / proxy and have been updated accordingly in the medication list Patient states that he feels okay Relates that his chronic low back pain and joint pains remain adequately controlled on his current Rx States that he just got back into town and was not able to get his follow up labs done yet but he will try to get these done ZAHRA He denies any headaches or dizziness Denies any chest pains, no SOB No nausea/vomiting, no abdominal pain No change in bowel habits noted Needs his pain med and Omeprazole Rx refilled PFSH Medical History Obesity (BMI 30-39.9) Allergic rhinitis GERD without esophagitis Obesity Asthma Failed back syndrome Hx of hemorrhoids Hx of osteoarthritis Family history of GERD Hx of gout History of rectal bleeding Surgical History HLA-B27 spondyloarthropathy History of arthroscopy of right knee History of inguinal hernia repair History of adenoidectomy History of lumbar surgery History of back surgery Hx of knee surgery Hx of tonsillectomy Family History Mother Pancreas cancer Diabetes Father Prostate cancer Rheumatoid arthritis Brother Diabetes Sister Diabetes Daughter No problems noted. Social History Housing: House Alcohol intake: current Alcohol intake frequency: holidays/special occasions only Patient Tobacco Use Status: Former Tobacco user Tobacco use type: Cigarette e-Cigarette/Vaping Use: Never Used Second Hand Smoke Exposure: Yes service: No Current occupational status: disabled Current occupational exposures/hazards: No Cognitive needs: No Hearing needs: No Vision needs: No Questionnaire Thrive Questionnaire Date Thrive assessed: 11/02/24 AUDIT C Alcohol Use Questionnaire (AUDIT-C) 1. How often do you have a drink containing alcohol?: 2-4 times a month 2. How many drinks containing alcohol do you have on a typical day when you are drinking?: 1 or 2 3. How often do you have six or more drinks on one occasion?: Never Total Score: 2 Score Reviewed/Action Taken: Yes VIKTORIA-7 AMB Questionnaire VIKTORIA-7 Date VIKTORIA - 7 assessed: 11/02/24 Source: Developed by Drs. Carroll Power, Chiquita Porter, Rod Branham and colleagues, with an educational tuan from [employer]. Review of Systems Const Denies chills, Denies fatigue, Denies fever(s) and Denies headache(s) ENT Denies dysphagia, Denies dizziness, Denies otalgia, Denies headache(s), Denies neck pain, Denies odynophagia and Denies sore throat Card Denies chest pain, Denies palpitations and Denies dyspnea Resp Denies chest congestion, Denies cough and Denies dyspnea GI Denies abdominal pain, Denies constipation, Denies dysphagia, Denies heartburn, Denies diarrhea, Denies nausea, Denies odynophagia and Denies vomiting Denies difficulty urinating, Denies dysuria, Denies nocturia and Denies urinary frequency Musc Reports back pain (over the lower back - chronic), Reports arthralgias (involving both knees, on and off) and Denies neck pain Skin/Breast Denies rash Neuro Denies dizziness and Denies headache(s) Endo Denies fatigue and Denies palpitations Physical exam (Primary Care) Vital Signs: Physical examination is not performed as visit / consultation today is done over the phone - Telehealth visit All physical findings indicated here, if present, are as per patient's and / or caregivers / proxy's report Tobacco/Smoking Status: Tobacco use Status Tobacco use date assessed 01/25/25 01/25/25 10:59 Patient Tobacco Use Status Former Tobacco user 01/25/25 10:59 Tobacco use type Cigarette 01/25/25 10:59 e-Cigarette/Vaping Use Never Used 01/25/25 10:59 Thrive Assessment: Date of Thrive Assessment Date Thrive assessed 11/02/24 01/25/25 10:59 Telehealth Telehealth Telehealth Platform: Telephone Location of provider rendering services: practice address Location of patient: address on file Patient Identification confirmed using: Name, : Yes Telehealth method: voice only Patient verbally consented to treatment: Yes Patient verbally consented to billing insurance company: Yes Patient informed of any privacy concerns related to visit: Yes Minutes spent on Phone/Video with Pt.: 18 Coding Level of Care Code Tele Est Pt Level 3 (27992) Diagnoses Failed back syndrome M96.1 HLA-B27 spondyloarthropathy M47.899 Mild intermittent asthma without complication J45.20 Asthma severity: mild Asthma persistence: intermittent Asthma complication type: uncomplicated GERD without esophagitis K21.9 Allergic rhinitis, unspecified seasonality, unspecified trigger J30.9 Allergic rhinitis trigger: unspecified Allergic rhinitis seasonality: unspecified Obesity (BMI 30-39.9) E66.9 Assessment & Plan Assessment & Plan (1) Failed back syndrome: Code(s): M96.1 - Postlaminectomy syndrome, not elsewhere classified Category: Medical Plan: Reinforced activity and weight-lifting restrictions Continue Oxycodone 10 mg Q 8 hours PRN for pain - Rx refilled today Patient was seen by pain management a couple of months ago and is currently still waiting for his MRI to be scheduled - thinks it is still waiting for insurance approval at this time (2) HLA-B27 spondyloarthropathy: Comment: Enbrel: April 2017-07/2023 Dc due to secondary non-response Humira 07/2023 Code(s): M47.899 - Other spondylosis, site unspecified Category: Surgical Plan: Continue Humira 40 mg SQ every 2 weeks Follow up with [facility] (Dr. Ro) as scheduled (3) Asthma: Code(s): J45.909 - Unspecified asthma, uncomplicated Category: Medical Qualifiers: Asthma severity: mild Asthma persistence: intermittent Asthma complication type: uncomplicated Qualified Code(s): J45.20 - Mild intermittent asthma, uncomplicated Plan: Controlled Continue Albuterol HFA 1 to 2 inhalations every 6 hours PRN (4) GERD without esophagitis: Code(s): K21.9 - Gastro-esophageal reflux disease without esophagitis Category: Medical Plan: Dietary restrictions reinforced Continue Omeprazole 20 mg QD - Rx refilled (5) Allergic rhinitis: Code(s): J30.9 - Allergic rhinitis, unspecified Category: Medical Qualifiers: Allergic rhinitis trigger: unspecified Allergic rhinitis seasonality: unspecified Qualified Code(s): J30.9 - Allergic rhinitis, unspecified Plan: Continue Fluticasone 50 mcg nasal spray QD PRN (6) Obesity (BMI 30-39.9): Code(s): E66.9 - Obesity, unspecified Category: Medical Plan: Reinforced diet; exercise and weight loss are not practical given patient's multiple comorbidities and physical issues Plan He is advised to try and get his previously ordered labs done ZAHRA and we will go over his results at his next month's appointment unless there are any urgent results and if there are, we will reach out to his ZAHRA regarding these Follow up in 1 month Medications: Refilled oxycodone 10 mg PO Q8H PRN 84 tabs 0RF pain 28 days omeprazole 20 mg PO DAILY 60 caps 1RF
--- OUTSIDE RECORDS SUMMARY | 2025-01-25 14:02 | XMS_ITS | Clinical Summary ---
Author Organization [facility] [employer] [facility] ity Address [address] [place] [address] Care Team Providers Care Plum Packer Name Role Phone Roldan Andino MD Primary Care Provider Social History Tobacco Use Types Packs/Day Years [...] 12/01/2023 Social Influencers of Health Screening 12/01/2023 Depression Screening 05/04/2024 COVID-19 Vaccine ( - 2023-2 5 season) 2025 Influenza Vaccine (#1) 2025 RSV Immunization Adult [...] age to complete this topic Care Teams Plum Packer Relationship Specialty Start Date End Date Roldan Andino MD [address] [place] [address] [address] [place] [address] PCP - General Internal Medicine 08/18/17
--- OUTSIDE RECORDS SUMMARY | 2025-01-25 14:02 | XMS_ITS | Patient Health Record ---
Author Organization [facility] Address [address] [place] [address] Care Team Providers Care Liaison Engineer Name Role Phone Thu GIANG, Roldan Primary Care Provider Carroll Wright Unavailable [phone] Allergies Allergen (clinical drug ingredient) Drug/Non Drug [...] Status Risk Notes Problem Blood in stool (563841086) Blood in stool (578.1) Active confirmed Problem Family history of malignant neoplasm of gastrointestinal tract (678675910) Family history of malignant neoplasm of gastrointestinal tract (V16.0) Active confirmed Plan Of Treatment Future Test Test Name Order Date COLONOSCOPY 06/05/2011 Insurance Providers Payer Name Payer Address Payer Phone Subscriber Number Group Number Insured Name Patient Relationship to Insured Coverage Start Date Coverage End Date MEDICAID OF [facility] [address] [place] [phone] [id number] RENÉ MOE Self - patient is the insured Medical (General) History Medical History History ICD Code Denies [place],DM,CVA,Lung disease,renal dise ase Surgical History Surgery Date(Month/Year) 3 back surgeries knee hernia
== END 2025-01-25 11:20 | disposition home or self-care (01) ==
LOC: HO.HMCH 10:56
PROVIDERS: PCP Internal Medicine; Visit Provider Internal Medicine
DX: M96.1 Postlaminectomy syndrome, not elsewhere classified (principal); M47.899 Other spondylosis, site unspecified; J45.20 Mild intermittent asthma, uncomplicated; K21.9 Gastro-esophageal reflux disease without esophagitis; J30.9 Allergic rhinitis, unspecified; E66.9 Obesity, unspecified

== ENCOUNTER 2025-02-20 09:10 | Outpatient (REF) | payer OTHER, SELFPAY ==
[2025-02-20 09:36] LABS: MANUAL DIFF FLAG NO
--- OUTSIDE RECORDS SUMMARY | 2025-02-20 10:22 | XMS_ITS | Clinical Summary ---
Author Organization [facility] it[facility] Address [address] [place] [address] Care Team Providers Care Engagement Quality Consultant Name Role Phone Roldan Andino MD Primary Care Provider [phone] Social History Tobacco Use Types Packs/Day Years Used Date Smoking Tobacco: Never Assessed Sex and Gender Information Value Date Recorded Sex Assigned at Not on file Legal Sex Male 11:04 PM EST Gender Identity Not on file Sexual Orientation Not on file Plan of Treatment Health Maintenance Due Date Last Done Comments Colorectal Cancer Screening: Colonoscopy 1965 DTaP,Tdap,and Td Vaccines (1 - Tdap) 01/26/1983 Pneumococcal Vaccine: 50+ Ye ars (1 of 1 - PCV) 01/26/2014 Zoster Vaccines (1 of 2) 01/26/2014 Cholesterol Screening (Lipid Panel) 12/01/2023 HIV Screening 12/01/2023 Hepatitis C Screening 12/01/2023 Social Influencers of Health Screening 12/01/2023 Depression Screening 05/04/2024 COVID-19 Vaccine (1 - 2023-2 5 season) 2025 Influenza Vaccine [...] age to complete this topic Care Teams Engagement Quality Consultant Relationship Specialty Start Date End Date Roldan Andino MD [address] [place] [address] [address] [place] [address] PCP - General Internal Medicine 08/18/17
[2025-02-20 11:00] LABS: Hematocrit 44.7 % (42.0-52.0); Hemoglobin 14.7 g/dl (14.0-18.0); Imm Gran Abs Auto 0.01 X10*3/uL (0.00-0.03); Imm Gran Pct Auto 0.1 % (0.0-0.4); Lymphocytes Absolute Auto 2.0 X10*3/uL (1.2-4.9); Mean Corpuscular HGB Conc 32.9 g/dl (31.0-36.0); Mean Corpuscular Hemoglobin 29.3 pg (27.0-33.0); Mean Corpuscular Volume 89.0 fL (80.0-98.0); NRBC Abs Auto 0.000 X10*3/uL (0.0-0.012); NRBC Pct Auto 0.0 /100WBC (0.0-0.2); Platelet Count 236 X10*3/uL (160-400); Red Blood Count 5.02 X10*6/uL (4.60-5.80); White Blood Count 6.7 X10*3/uL (4.8-10.8)
[2025-02-20 11:41] LABS: Alanine Aminotransferase 18 U/L (0-40); Albumin Level 3.6 g/dL (3.5-5.0); Alkaline Phosphatase 76 U/L (39-117); Anion Gap 11 (12-20); Aspartate Amino Transferase 28 U/L (5-37); Blood Urea Nitrogen 10 mg/dL (9-16); Calcium 8.5 mg/dL (8.4-10.2); Carbon Dioxide 26 mmol/L (22-29); Chloride 107 mmol/L (96-108); Cholesterol 210 mg/dL (<200); Estimated Glomerular Filt Rate > 60; HDL Cholesterol 59 mg/dL (>40); Potassium 4.2 mmol/L (3.3-5.1); Sodium 140 mmol/L (135-145); Total Protein 6.3 g/dL (6.5-8.0); Triglycerides 106 mg/dL (<150)
[2025-02-20 12:23] LABS: Folate 9.5 ng/mL (> or = 4.0); Vitamin B12 286 pg/mL (200-900)
== END 2025-02-20 09:11 | disposition home or self-care (01) ==
LOC: HO.LAB 09:10
PROVIDERS: PCP Internal Medicine; Visit Provider Internal Medicine
DX: Z00.00 Encounter for general adult medical examination without abnormal findings (principal); N40.0 Benign prostatic hyperplasia without lower urinary tract symptoms; D64.9 Anemia, unspecified; E53.8 Deficiency of other specified B group vitamins; E78.00 Pure hypercholesterolemia, unspecified; M47.899 Other spondylosis, site unspecified; E55.9 Vitamin D deficiency, unspecified
CPT/HCPCS: 36415; 80053; 80061; 82306; 82607; 82746; 84153; 84443; 85025; 85652; 86140

== ENCOUNTER 2025-02-22 09:57 | Outpatient (REF) | payer OTHER, SELFPAY ==
[2025-02-22 11:30] LABS: Appearance Urine Clear; Glucose Urine UA Negative (Negative); PH 8.0 (5.0-9.0); Specific Gravity - Urine 1.010 (1.005-1.025)
--- OUTSIDE RECORDS SUMMARY | 2025-02-22 14:29 | XMS_ITS | Patient Health Record ---
Author Organization [facility] Address [address] [place] [address] Care Team Providers Care Enterprise Application Administrator Name Role Phone Thu GIANG, Roldan Primary Care Provider Carroll Wright Unavailable [phone] Allergies Allergen (clinical drug ingredient) Drug/Non Drug Allergy documented on EMR Reaction Allergy Type Onset Date Status Seasonal (uncoded) Unknown Allergy A ctive Reason For Referral No Information Medications Medication SIG (Take, Route, Fr equency, Duration) Notes Start Date End Date Status oxyCODONE HCl Active MoviPrep 100 GM as directed Orally o nce; Duration: 1 dose 06/05/2011 05/04/2024 Active Problems Problem Type SNOMED Code ICD Code Onset Dates Problem Status W/U Status Risk Notes Problem Blood in stool (643590108) Blood in stool (578.1) Active confirmed Problem Family history of malignant neoplasm of gastrointestinal tract (066989730) Family history of malignant neoplasm of gastrointestinal tract (V16.0) Active confirmed Plan Of Treatment Future Test Test Name Order Date COLONOSCOPY 06/05/2011 Insurance Providers Payer Name Payer Address Payer Phone Subscriber Number Group Number Insured Name Patient Relationship to Insured Coverage Start Date Coverage End Date [facility] OF [facility] [address] [place] [address] [id number] RENÉ MOE Self - patient is the insured Medical (General) History Medical History History ICD Code Denies [place],DM,CVA,Lung disease,renal dise ase Surgical History Surgery Date(Month/Year) 3 back surgeries knee hernia
--- OUTSIDE RECORDS SUMMARY | 2025-02-22 14:29 | XMS_ITS | Clinical Summary ---
Author Organization [facility] ity Address [address] [place] [address] Care Team Providers Care Edge Stitcher Name Role Phone Roldan Andino MD Primary Care Provider [phone] Social History Tobacco Use Types Packs/Day Years [...] age to complete this topic Care Teams Edge Stitcher Relationship Specialty Start Date End Date Roldan Andino MD [address] [place] [address] [address] [place] [address] PCP - General Internal Medicine 08/18/17
== END 2025-02-22 09:58 | disposition home or self-care (01) ==
LOC: HO.LNP 09:57
PROVIDERS: PCP Internal Medicine; Visit Provider Internal Medicine
DX: Z00.00 Encounter for general adult medical examination without abnormal findings (principal); R30.0 Dysuria; M96.1 Postlaminectomy syndrome, not elsewhere classified; M47.899 Other spondylosis, site unspecified; J45.20 Mild intermittent asthma, uncomplicated; E78.00 Pure hypercholesterolemia, unspecified; K21.9 Gastro-esophageal reflux disease without esophagitis; E55.9 Vitamin D deficiency, unspecified; J30.9 Allergic rhinitis, unspecified; E66.9 Obesity, unspecified; Z68.30 Body mass index [BMI] 30.0-30.9, adult; Z79.891 Long term (current) use of opiate analgesic; Z79.899 Other long term (current) drug therapy
CPT/HCPCS: 81003; 99212

== ENCOUNTER 2025-02-22 09:57 | Outpatient (AMB) | payer OTHER, SELFPAY ==
[2025-02-22 10:13] VITALS: BP 116/80; PULSE 90; O2SAT 95; BMI 30.6
--- NOTE | 2025-02-22 10:13 | A.OFFPC_ITS ---
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 Ladle Puller Required: No Accompanied by: Self / Same As Patient Allergies naproxen Allergy (Severe, Verified 02/22/25 10:50) Anaphylaxis seasonal allergies Allergy (Unknown, Uncoded 02/22/25 10:50) Unknown Medication List - Last Reconciled 02/22/25 by Charles Marsh MD adalimumab (Humira(CF) Pen) 40 mg (0.4 mL) subcut Q2W albuterol sulfate 90 mcg/actuation 2 puffs inhalation Q6H PRN 30 days fluocinonide 0.05% appl topical fluticasone propionate 50 mcg/actuation 1 spray intranasal BID omeprazole 20 mg PO DAILY oxycodone 10 mg PO Q8H PRN 28 days sildenafil (Viagra) 50 mg PO DAILY PRN tacrolimus 0.1% 1 appl topical BID tacrolimus 0.1% 1 appl topical BID triamcinolone acetonide 0.5% 1 appl topical TID Tobacco use date assessed: 02/22/25 Dental Screening Dental Screen Date: 02/22/25 Did you have a dental visit in the last 12 months?: Yes Did you have a dental problem in the last 6 months where you did not have access to dental care?: No Was dental information given to patient?: Patient has dentist HPI MED MANAGEMENT HPI Details Patient comes in today for his follow up visit States that he feels okay and that his chronic low back pain and joint pains remain adequately controlled on his current Rx He denies any headaches or dizziness Denies any chest pains, no SOB No nausea/vomiting, no abdominal pain No change in bowel habits noted Needs his pain med Rx refilled He had his follow up labs done a couple of days ago - to discuss his results [facility] Medical History (Updated 02/22/25 @ 12:36 by Charles Marsh MD) Vitamin D deficiency Pure hypercholesterolemia Obesity (BMI 30-39.9) Allergic rhinitis GERD without esophagitis Obesity Asthma Failed back syndrome Hx of hemorrhoids Hx of osteoarthritis Family history of GERD Hx of gout History of rectal bleeding Surgical History HLA-B27 spondyloarthropathy History of arthroscopy of right knee History of inguinal hernia repair History of adenoidectomy History of lumbar surgery History of back surgery Hx of knee surgery Hx of tonsillectomy Family History Mother Pancreas cancer Diabetes Father Prostate cancer Rheumatoid arthritis Brother Diabetes Sister Diabetes Daughter No problems noted. Social History Housing: House Alcohol intake: current Alcohol intake frequency: holidays/special occasions only Patient Tobacco Use Status: Former Tobacco user Tobacco use type: Cigarette e-Cigarette/Vaping Use: Never Used Second Hand Smoke Exposure: Yes service: No Current occupational status: disabled Current occupational exposures/hazards: No Cognitive needs: No Hearing needs: No Vision needs: No Questionnaire Thrive Questionnaire Date Thrive assessed: 11/02/24 AUDIT C Alcohol Use Questionnaire (AUDIT-C) 1. How often do you have a drink containing alcohol?: 2-4 times a month 2. How many drinks containing alcohol do you have on a typical day when you are drinking?: 1 or 2 3. How often do you have six or more drinks on one occasion?: Never Total Score: 2 Score Reviewed/Action Taken: Yes VIKTORIA-7 AMB Questionnaire VIKTORIA-7 Date VIKTORIA - 7 assessed: 11/02/24 Source: Developed by Drs. Carroll Power, Chiquita Porter, Rod Branham and colleagues, with an educational tuan from [employer]. Review of Systems Const Denies chills, Denies fatigue, Denies fever(s) and Denies headache(s) ENT Denies dysphagia, Denies dizziness, Denies otalgia, Denies headache(s), Denies neck pain, Denies odynophagia and Denies sore throat Card Denies chest pain, Denies palpitations and Denies dyspnea Resp Denies chest congestion, Denies cough and Denies dyspnea GI Denies abdominal pain, Denies constipation, Denies dysphagia, Denies heartburn, Denies diarrhea, Denies nausea, Denies odynophagia and Denies vomiting Denies difficulty urinating, Denies dysuria, Denies nocturia and Denies urinary frequency Musc Reports back pain (over the lower back - chronic), Reports arthralgias (involving both knees, on and off) and Denies neck pain Skin/Breast Denies rash Neuro Denies dizziness and Denies headache(s) Endo Denies fatigue and Denies palpitations Physical exam (Primary Care) Vital Signs: Last Vital Signs Pulse 90 02/22/25 10:13 BP 116/80 02/22/25 10:13 Pulse Ox 95 02/22/25 10:13 Oxygen Delivery Method Room Air 02/22/25 10:13 BMI result Body Mass Index 30.6 Tobacco/Smoking Status: Tobacco use Status Tobacco use date assessed 02/22/25 02/22/25 10:26 Patient Tobacco Use Status Former Tobacco user 02/22/25 10:26 Tobacco use type Cigarette 02/22/25 10:26 e-Cigarette/Vaping Use Never Used 02/22/25 10:26 Thrive Assessment: Date of Thrive Assessment Date Thrive assessed 11/02/24 02/22/25 10:26 Const General: no acute distress and alert HENMT Ears: TM's normal bilaterally and EAC's normal Throat: Yes posterior oropharynx normal and Yes tonsils normal (no TP congestion) Neck Neck: Yes supple and No lymphadenopathy Thyroid: Thyroid normal Resp Auscultation: clear to auscultation bilaterally, no rales and no wheezes Cardio Rate: regular rate Rhythm: regular rhythm Heart sounds: no murmurs GI Palpation (GI): Soft to palpation and nontender Auscultation: normal bowel sounds General: Yes no CVA tenderness Back/Spine/Pelvis Back: no CVA tenderness Thoracic/Lumbar Spine: lumbar spinal tenderness (chronic) Skin Rashes: no rashes Extrem General: Yes no clubbing, cyanosis or edema Results Reviewed Results Reviewed: Laboratory Tests 02/20/25 09:34 WBC 6.7 Hgb 14.7 Hct 44.7 Plt Count 236 ESR 14 Sodium 140 Potassium 4.2 Creatinine 0.66 Estimated GFR > 60 Fasting Glucose 101 H Calcium 8.5 AST 28 ALT 18 C-Reactive Protein 0.90 H Triglycerides 106 Cholesterol 210 H LDL Cholesterol, Calc 130 H HDL Cholesterol 59 PSA Screen 0.56 Vitamin B12 286 25-OH Vitamin D Total 27.2 L Folate 9.5 TSH 1.79 Coding Level of Care Code Est Pt Level 4 (55214) Diagnoses Failed back syndrome M96.1 HLA-B27 spondyloarthropathy M47.899 Mild intermittent asthma without complication J45.20 Asthma severity: mild Asthma persistence: intermittent Asthma complication type: uncomplicated Pure hypercholesterolemia E78.00 GERD without esophagitis K21.9 Vitamin D deficiency E55.9 Allergic rhinitis, unspecified seasonality, unspecified trigger J30.9 Allergic rhinitis trigger: unspecified Allergic rhinitis seasonality: unspecified Obesity (BMI 30-39.9) E66.9 Assessment & Plan Assessment & Plan (1) Failed back syndrome: Code(s): M96.1 - Postlaminectomy syndrome, not elsewhere classified Category: Medical Plan: Reinforced activity and weight-lifting restrictions Continue Oxycodone 10 mg Q 8 hours PRN for pain - Rx refilled today Patient was seen by pain management a few months ago and was supposed to get an MRI done but this appears to have been denied by his health insurance as it has never been scheduled or done Follow up with pain management as scheduled (2) HLA-B27 spondyloarthropathy: Comment: Mark: April 2017-07/2023 Dc due to secondary non-response Humira 07/2023 Code(s): M47.899 - Other spondylosis, site unspecified Category: Surgical Plan: Continue Humira 40 mg SQ every 2 weeks Follow up with [facility] Rheumatology (Dr. Ro) as scheduled (3) Asthma: Code(s): J45.909 - Unspecified asthma, uncomplicated Category: Medical Qualifiers: Asthma severity: mild Asthma persistence: intermittent Asthma complication type: uncomplicated Qualified Code(s): J45.20 - Mild intermittent asthma, uncomplicated Plan: Controlled Continue Albuterol HFA 1 to 2 inhalations every 6 hours PRN (4) Pure hypercholesterolemia: Code(s): E78.00 - Pure hypercholesterolemia, unspecified Category: Medical Plan: Results of his labs done a couple of days ago reviewed and discussed with patient - he is cautioned that his cholesterol levels, specifically his LDL cholesterol, have increased significantly from a year ago Reinforced low cholesterol diet (5) GERD without esophagitis: Code(s): K21.9 - Gastro-esophageal reflux disease without esophagitis Category: Medical Plan: Dietary restrictions reinforced Continue Omeprazole 20 mg QD (6) Vitamin D deficiency: Code(s): E55.9 - Vitamin D deficiency, unspecified Category: Medical Plan: Patient is also advised that his Vitamin D level was low on his recent labs Will start him on Vitamin D3 2000 units QD (7) Allergic rhinitis: Code(s): J30.9 - Allergic rhinitis, unspecified Category: Medical Qualifiers: Allergic rhinitis trigger: unspecified Allergic rhinitis seasonality: unspecified Qualified Code(s): J30.9 - Allergic rhinitis, unspecified Plan: Continue Fluticasone 50 mcg nasal spray QD PRN (8) Obesity (BMI 30-39.9): Code(s): E66.9 - Obesity, unspecified Category: Medical Plan: Reinforced diet; exercise and weight loss are not practical given patient's multiple comorbidities and physical issues Plan Follow up in 1 month Medications: New cholecalciferol (vitamin D3) 50 mcg PO DAILY 90 caps 3RF 90 days E55.9 - Vitamin D deficiency, unspecified Refilled oxycodone 10 mg PO Q8H PRN 84 tabs 0RF pain 28 days
== END 2025-02-22 11:06 | disposition home or self-care (01) ==
LOC: HO.HMCH 09:58
PROVIDERS: PCP Internal Medicine; Visit Provider Internal Medicine
DX: J45.20 Mild intermittent asthma, uncomplicated (principal); M96.1 Postlaminectomy syndrome, not elsewhere classified; E66.9 Obesity, unspecified; Z68.30 Body mass index [BMI] 30.0-30.9, adult; M47.899 Other spondylosis, site unspecified; E78.00 Pure hypercholesterolemia, unspecified; K21.9 Gastro-esophageal reflux disease without esophagitis; E55.9 Vitamin D deficiency, unspecified; J30.9 Allergic rhinitis, unspecified

== ENCOUNTER 2025-03-23 11:47 | Outpatient (AMB) | payer OTHER, SELFPAY ==
--- NOTE | 2025-03-23 11:48 | MHC.PC.OV ---
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 Accompanied by: Self / Same As Patient Allergies naproxen Allergy (Severe, Verified 03/23/25 11:48) Anaphylaxis seasonal allergies Allergy (Unknown, Uncoded 03/23/25 11:48) Unknown Tobacco use date assessed: 03/23/25 Dental Screening Dental Screen Date: 03/23/25 Did you have a dental visit in the last 12 months?: Yes Did you have a dental problem in the last 6 months where you did not have access to dental care?: No Was dental information given to patient?: Patient has dentist HPI med management HPI Details Patient's follow-up visit / consultation today is done over the phone - this is a Telehealth visit Patient's current medications have been reviewed and verified with patient and / or caregiver / proxy and have been updated accordingly in the medication list Patient states that he currently feels okay and that he is scheduled to leave for [place] in a couple of days to see his sister, who is apparently going through some health issues States that he mainly just need a couple of his Rx refilled, including his pain medication as well as his Omeprazole He denies any headaches or dizziness Denies any chest pains, no SOB No nausea/vomiting, no abdominal pain No change in bowel habits noted [facility] Medical History Vitamin D deficiency Pure hypercholesterolemia Obesity (BMI 30-39.9) Allergic rhinitis GERD without esophagitis Obesity Asthma Failed back syndrome Hx of hemorrhoids Hx of osteoarthritis Family history of GERD Hx of gout History of rectal bleeding Surgical History HLA-B27 spondyloarthropathy History of arthroscopy of right knee History of inguinal hernia repair History of adenoidectomy History of lumbar surgery History of back surgery Hx of knee surgery Hx of tonsillectomy Family History Mother Pancreas cancer Diabetes Father Prostate cancer Rheumatoid arthritis Brother Diabetes Sister Diabetes Daughter No problems noted. Social History Housing: House Alcohol intake: current Alcohol intake frequency: holidays/special occasions only Patient Tobacco Use Status: Former Tobacco user Tobacco use type: Cigarette e-Cigarette/Vaping Use: Never Used Second Hand Smoke Exposure: Yes service: No Current occupational status: disabled Current occupational exposures/hazards: No Cognitive needs: No Hearing needs: No Vision needs: No Questionnaire PHQ-9 Over the last 2 weeks, how often have you been bothered by any of the following problems? 1. Little interest or pleasure in doing things: not at all 2. Feeling down, depressed, or hopeless: not at all 3. Trouble falling or staying asleep, or sleeping too much: not at all 4. Feeling tired or having little energy: not at all 5. Poor appetite or overeating: not at all 6. Feeling bad about yourself - or that you are a failure or have let yourself or your family down: not at all 7. Trouble concentrating on things, such as reading the newspaper or watching television: not at all 8. Moving or speaking so slowly that other people could have noticed. Or the opposite - being so fidgety or restless that you have been moving around a lot more than usual: not at all 9. Thoughts that you would be better off or of hurting yourself in some way: not at all Total score: 0 Depression Screening Interpretation: Negative Depression Screening Done: Yes 65043 - PHQ-9 Billing: Yes Source: Developed by Drs. Carroll Power, Chiquita Porter, Rod Branham and colleagues, with an educational tuan from [employer]. Thrive Questionnaire Date Thrive assessed: 03/23/25 I am a: Patient What is your living situation today?: I have a steady place to live Within the past 12 months, did the food you bought not last and you didn't have the money to get more?: Never true Within the past 12 months, did you worry whether your food would run out before you got money to buy more?: Never true Do you have trouble paying for medicines?: No Do you have trouble getting transportation to medical appointments?: No Do you have trouble paying your heating and electricity bill?: No Do you have trouble taking care of your child, family member or friend?: No Do you have trouble with day-to-day activities such as bathing, preparing meals, shopping, managing finances, etc.?: No Are you currently unemployed and looking for a job?: No Are you interested in more education?: No Please select the resources that you would like help with: None Currently or been in a relationship where the following occur: No concerns reported THRIVE Score: 0 AUDIT C Alcohol Use Questionnaire (AUDIT-C) 1. How often do you have a drink containing alcohol?: 2-4 times a month 2. How many drinks containing alcohol do you have on a typical day when you are drinking?: 1 or 2 3. How often do you have six or more drinks on one occasion?: Never Total Score: 2 Score Reviewed/Action Taken: Yes VIKTORIA-7 AMB Questionnaire VIKTORIA-7 Date VIKTORIA - 7 assessed: 03/23/25 Feeling nervous, anxious, or on edge: 0 = Not at all Not being able to stop or control worryin = Not at all Worrying too much about different things: 0 = Not at all Trouble relaxin = Not at all Being so restless that it is hard to sit still: 0 = Not at all Becoming easily annoyed or irritable: 0 = Not at all Feeling afraid as if something awful might happen: 0 = Not at all Total VIKTORIA-7 score (0-4 normal; 5-9 mild; 10-14 moderate; 15-21 severe): 0 Source: Developed by Drs. Carroll Power, Chiquita Porter, Rod Branham and colleagues, with an educational tuan from [employer]. Review of Systems Const Denies chills, Denies fatigue, Denies fever(s) and Denies headache(s) ENT Denies dysphagia, Denies dizziness, Denies otalgia, Denies headache(s), Denies neck pain, Denies odynophagia and Denies sore throat Card Denies chest pain, Denies palpitations and Denies dyspnea Resp Denies chest congestion, Denies cough and Denies dyspnea GI Denies abdominal pain, Denies constipation, Denies dysphagia, Denies heartburn, Denies diarrhea, Denies nausea, Denies odynophagia and Denies vomiting Denies difficulty urinating, Denies dysuria, Denies nocturia and Denies urinary frequency Musc Reports back pain (over the lower back - chronic), Reports arthralgias (involving both knees, on and off) and Denies neck pain Skin/Breast Denies rash Neuro Denies dizziness and Denies headache(s) Endo Denies fatigue and Denies palpitations Physical exam (Primary Care) Vital Signs: Physical examination is not performed as visit / consultation today is done over the phone - telehealth visit All physical findings indicated here, if present, are as per patient's and / or caregivers / proxy's report Tobacco/Smoking Status: Tobacco use Status Tobacco use date assessed 03/23/25 03/23/25 11:49 Patient Tobacco Use Status Former Tobacco user 03/23/25 11:49 Tobacco use type Cigarette 03/23/25 11:49 e-Cigarette/Vaping Use Never Used 03/23/25 11:49 PHQ-9: PHQ-9 Score PHQ-9: Total score 0 03/23/25 11:49 Depression Screening Interpretation: Negative Thrive Assessment: Date of Thrive Assessment Date Thrive assessed 03/23/25 03/23/25 11:49 Currently or been in a relationship where the following occur: No concerns reported Telehealth Telehealth Telehealth Platform: Telephone Location of provider rendering services: practice address Location of patient: address on file Patient Identification confirmed using: Name, : Yes Telehealth method: voice only Patient verbally consented to treatment: Yes Patient verbally consented to billing insurance company: Yes Patient informed of any privacy concerns related to visit: Yes Minutes spent on Phone/Video with Pt.: 15 Coding Level of Care Code Tele Est Pt Level 3 (57941) Diagnoses Failed back syndrome M96.1 HLA-B27 spondyloarthropathy M47.899 Pure hypercholesterolemia E78.00 Mild intermittent asthma without complication J45.20 Asthma severity: mild Asthma persistence: intermittent Asthma complication type: uncomplicated GERD without esophagitis K21.9 Vitamin D deficiency E55.9 Allergic rhinitis, unspecified seasonality, unspecified trigger J30.9 Allergic rhinitis trigger: unspecified Allergic rhinitis seasonality: unspecified Obesity (BMI 30-39.9) E66.9 Additional Codes PHQ-9 - 43557 - PHQ-9 Billing: Yes ([id number]) Assessment & Plan Assessment & Plan (1) Failed back syndrome: Code(s): M96.1 - Postlaminectomy syndrome, not elsewhere classified Category: Medical Plan: Reinforced activity and weight-lifting restrictions Continue Oxycodone 10 mg Q 8 hours PRN for pain - Rx refilled today Patient was seen by pain management a few months ago and was supposed to get an MRI done but this appears to have been denied by his health insurance as it has never been scheduled or done Follow up with pain management as scheduled (2) HLA-B27 spondyloarthropathy: Comment: Mark: April 2017-07/2023 Dc due to secondary non-response Humira 07/2023 Code(s): M47.899 - Other spondylosis, site unspecified Category: Surgical Plan: Continue Humira 40 mg SQ every 2 weeks Follow up with [facility] Rheumatology (Dr. Ro) as scheduled (3) Pure hypercholesterolemia: Code(s): E78.00 - Pure hypercholesterolemia, unspecified Category: Medical Plan: Reinforced low cholesterol diet He is reminded that his cholesterol levels have increased significantly from a year ago on his most recent labs and he should be careful with his diet, especially over the upcoming holidays We will recheck his cholesterol levels again sometime early next year for follow up (4) Asthma: Code(s): J45.909 - Unspecified asthma, uncomplicated Category: Medical Qualifiers: Asthma severity: mild Asthma persistence: intermittent Asthma complication type: uncomplicated Qualified Code(s): J45.20 - Mild intermittent asthma, uncomplicated Plan: Controlled Continue Albuterol HFA 1 to 2 inhalations every 6 hours PRN (5) GERD without esophagitis: Code(s): K21.9 - Gastro-esophageal reflux disease without esophagitis Category: Medical Plan: Dietary restrictions reinforced Continue Omeprazole 20 mg QD - Rx refilled (6) Vitamin D deficiency: Code(s): E55.9 - Vitamin D deficiency, unspecified Category: Medical Plan: Continue Vitamin D3 2000 units QD (7) Allergic rhinitis: Code(s): J30.9 - Allergic rhinitis, unspecified Category: Medical Qualifiers: Allergic rhinitis trigger: unspecified Allergic rhinitis seasonality: unspecified Qualified Code(s): J30.9 - Allergic rhinitis, unspecified Plan: Continue Fluticasone 50 mcg nasal spray QD PRN (8) Obesity (BMI 30-39.9): Code(s): E66.9 - Obesity, unspecified Category: Medical Plan: Reinforced diet; exercise and weight loss are not practical given patient's multiple comorbidities and physical issues Plan Follow up in 1 month Medications: Refilled oxycodone 10 mg PO Q8H PRN 84 tabs 0RF pain 28 days omeprazole 20 mg PO DAILY 60 caps 1RF
== END 2025-03-23 13:29 | disposition home or self-care (01) ==
LOC: HO.HMCH 11:47
PROVIDERS: PCP Internal Medicine; Visit Provider Internal Medicine
DX: M96.1 Postlaminectomy syndrome, not elsewhere classified (principal); M47.899 Other spondylosis, site unspecified; E78.00 Pure hypercholesterolemia, unspecified; J45.20 Mild intermittent asthma, uncomplicated; K21.9 Gastro-esophageal reflux disease without esophagitis; E55.9 Vitamin D deficiency, unspecified; J30.9 Allergic rhinitis, unspecified; E66.9 Obesity, unspecified

== ENCOUNTER → 2025-03-23 11:47 | Outpatient (BNVA) | payer OTHER, SELFPAY | PROVIDERS: PCP Internal Medicine; Visit Provider Internal Medicine | DX: M96.1 Postlaminectomy syndrome, not elsewhere classified (principal); M47.899 Other spondylosis, site unspecified; E78.00 Pure hypercholesterolemia, unspecified; J45.20 Mild intermittent asthma, uncomplicated; K21.9 Gastro-esophageal reflux disease without esophagitis; E55.9 Vitamin D deficiency, unspecified; J30.9 Allergic rhinitis, unspecified; E66.9 Obesity, unspecified | CPT/HCPCS: 96127 ==

== ENCOUNTER 2025-04-19 09:09 | Outpatient (REF) | payer OTHER, SELFPAY ==
[2025-04-19 09:28] LABS: MANUAL DIFF FLAG NO
[2025-04-19 09:59] LABS: Hematocrit 46.1 % (42.0-52.0); Hemoglobin 15.1 g/dl (14.0-18.0); Imm Gran Abs Auto 0.02 X10*3/uL (0.00-0.03); Imm Gran Pct Auto 0.4 % (0.0-0.4); Lymphocytes Absolute Auto 2.3 X10*3/uL (1.2-4.9); Mean Corpuscular HGB Conc 32.8 g/dl (31.0-36.0); Mean Corpuscular Hemoglobin 29.0 pg (27.0-33.0); Mean Corpuscular Volume 88.5 fL (80.0-98.0); NRBC Abs Auto 0.000 X10*3/uL (0.0-0.012); NRBC Pct Auto 0.0 /100WBC (0.0-0.2); Platelet Count 250 X10*3/uL (160-400); Red Blood Count 5.21 X10*6/uL (4.60-5.80); White Blood Count 5.3 X10*3/uL (4.8-10.8)
--- OUTSIDE RECORDS SUMMARY | 2025-04-19 10:05 | XMS_ITS | Patient Health Record ---
Author Organization [facility] Address [address] [place] [address] Care Team Providers Care Four H Agent Name Role Phone Roldan Andino MD Primary Care Provider Carroll Wright Unavailable [phone] Allergies Allergen (clinical drug ingredient) Drug/Non Drug Allergy documented on EMR Reaction Allergy Type Onset Date Status Seasonal (uncoded) Unknown Allergy A ctive Reason For Referral No Information Medications Medication SIG (Take, Route, Frequency, Duration) Notes Start Date End Date Status oxyCODONE HCl Active MoviPrep 100 GM Solution Reconstituted as directed Orally once; Duration: 1 dose 06/05/2011 Active Social History Social History Additional Details Category Social Info Options Details Miscellaneous: Marital status: Occupation: Disabled Section Notes: Does not smoke; uses alcohol on the weekends Problems Problem Type SNOMED Code ICD Code Onset Dates Problem Status W/U Status Risk Notes Problem Blood in stool (788606167) Blood in stool (578.1) Active confirmed Problem Family history of malignant neoplasm of gastrointestinal tract ([id number]) Family history of malignant neoplasm of gastrointestinal tract (V16.0) Active confirmed Plan Of Treatment Future Test Test Name Order Date COLONOSCOPY 06/05/2011 Insurance Providers Payer Name Payer Address Payer Phone Subscriber Number Group Number Insured Name Patient Relationship to Insured Coverage Start Date Coverage End Date MEDICAID OF [employer] [address] [place] [id number] [phone] [id number] RENÉ MOE Self - patient is the insured Medical (General) History Medical History History ICD Code Denies OK,DM,CVA,Lung disease,renal dise ase Surgical History Surgery Date(Month/Year) 3 back surgeries knee hernia
--- OUTSIDE RECORDS SUMMARY | 2025-04-19 10:05 | XMS_ITS | Clinical Summary ---
Author Organization [facility] ity Address [address] [place] [address] Care Team Providers Care Supervisor Network Control Operators Name Role Phone Roldan Andino MD Primary Care Provider [phone] Social History Tobacco Use Types Packs/Day Years [...] Depression Screening 05/04/2024 COVID-19 Vaccine (1 - 2024-2 6 season) 2025 Influenza Vaccine (#1) 2025 RSV [...] age to complete this topic Care Teams Supervisor Network Control Operators Relationship Specialty Start Date End Date Roldan Andino MD [address] [place] [address] [address] [place] [address] PCP - General Internal Medicine 08/18/17
[2025-04-19 10:20] LABS: Alanine Aminotransferase 12 U/L (0-40); Albumin Level 3.7 g/dL (3.5-5.0); Alkaline Phosphatase 69 U/L (39-117); Anion Gap 8 (12-20); Aspartate Amino Transferase 23 U/L (5-37); Blood Urea Nitrogen 14 mg/dL (9-16); Calcium 8.6 mg/dL (8.4-10.2); Carbon Dioxide 25 mmol/L (22-29); Chloride 109 mmol/L (96-108); Estimated Glomerular Filt Rate > 60; Potassium 4.3 mmol/L (3.3-5.1); Sodium 138 mmol/L (135-145); Total Protein 6.2 g/dL (6.5-8.0)
[2025-04-19 10:47] LABS: HBS Num1 3.75 mIU/mL (0-7.99); HBc Num1 0.04 S/CO (0.00-0.79); Hepatitis A Antibody IgM 0.20 Index (0-0.79); ~HepC Num1 0.13 S/CO (0.00-0.79); ~Hepatitis A Antibody IgM Nonreactive (Nonreactive); ~Hepatitis B Surface Antibody NONREACTIVE (Nonreactive); ~Hepatitis C Antibody Nonreactive (Nonreactive)
[2025-04-20 13:17] LABS: HBsAGNum1 0.20 S/CO (0.00-0.99); Hepatitis B Surface Antigen Negative (Negative)
[2025-04-22 09:14] LABS: TS Negative Control Passed; TS Panel A 0; TS Panel B 2; TS Positive Control Passed; TSpotTB Negative (Negative)
== END 2025-04-19 09:10 | disposition home or self-care (01) ==
LOC: HO.LAB 09:09
PROVIDERS: PCP Internal Medicine; Visit Provider Student in an Organized Health Care Education/Training Program
DX: M96.1 Postlaminectomy syndrome, not elsewhere classified (principal); E78.00 Pure hypercholesterolemia, unspecified; J45.20 Mild intermittent asthma, uncomplicated; M47.899 Other spondylosis, site unspecified; K21.9 Gastro-esophageal reflux disease without esophagitis; E55.9 Vitamin D deficiency, unspecified; J30.9 Allergic rhinitis, unspecified; E66.9 Obesity, unspecified; Z68.31 Body mass index [BMI] 31.0-31.9, adult
CPT/HCPCS: 36415; 80053; 85025; 85652; 86140; 86481; 86704; 86706; 86709; 86803; 87340; 99212

== ENCOUNTER 2025-04-19 10:03 | Outpatient (AMB) | payer OTHER, SELFPAY ==
--- NOTE | 2025-04-19 10:18 | MHC.PC.OV ---
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 Accompanied by: Self / Same As Patient Allergies naproxen Allergy (Severe, Verified 04/19/25 10:41) Anaphylaxis seasonal allergies Allergy (Unknown, Uncoded 04/19/25 10:41) Unknown Medication List - Last Reconciled 04/19/25 by Charles Marsh MD adalimumab (Humira(CF) Pen) 40 mg (0.4 mL) subcut Q2W adalimumab-bwwd (Hadlima(CF) PushTouch) 40 mg (0.4 mL) subcut Q2W albuterol sulfate 90 mcg/actuation 2 puffs inhalation Q6H PRN 30 days cholecalciferol (vitamin D3) 50 mcg PO DAILY 90 days fluocinonide 0.05% appl topical fluticasone propionate 50 mcg/actuation 1 spray intranasal BID omeprazole 20 mg PO DAILY oxycodone 10 mg PO Q8H PRN 28 days sildenafil (Viagra) 50 mg PO DAILY PRN tacrolimus 0.1% 1 appl topical BID triamcinolone acetonide 0.5% 1 appl topical TID Tobacco use date assessed: 04/19/25 Dental Screening Dental Screen Date: 04/19/25 Did you have a dental visit in the last 12 months?: Yes Did you have a dental problem in the last 6 months where you did not have access to dental care?: No Was dental information given to patient?: Patient has dentist HPI MED MANAGEMENT HPI Details Patient comes in today for his follow up visit States that he feels okay and is getting ready to head down to [place] again in a few days to spend the holidays down there with his family States that he will be back in early May 2025 in time for his next month's appointment He denies any headaches or dizziness Denies any chest pains, no SOB No nausea/vomiting, no abdominal pain No change in bowel habits noted States that he mainly just needs a couple of his Rx refilled, including his pain medication as well as his Omeprazole States that he had some labs done earlier this morning for rheumatology - labs were non-fasting labs [facility] Medical History Vitamin D deficiency Pure hypercholesterolemia Obesity (BMI 30-39.9) Allergic rhinitis GERD without esophagitis Obesity Asthma Failed back syndrome Hx of hemorrhoids Hx of osteoarthritis Family history of GERD Hx of gout History of rectal bleeding Surgical History HLA-B27 spondyloarthropathy History of arthroscopy of right knee History of inguinal hernia repair History of adenoidectomy History of lumbar surgery History of back surgery Hx of knee surgery Hx of tonsillectomy Family History Mother Pancreas cancer Diabetes Father Prostate cancer Rheumatoid arthritis Brother Diabetes Sister Diabetes Daughter No problems noted. Social History Housing: House Alcohol intake: current Alcohol intake frequency: holidays/special occasions only Patient Tobacco Use Status: Former Tobacco user Tobacco use type: Cigarette e-Cigarette/Vaping Use: Never Used Second Hand Smoke Exposure: Yes service: No Current occupational status: disabled Current occupational exposures/hazards: No Cognitive needs: No Hearing needs: No Vision needs: No Questionnaire Thrive Questionnaire Date Thrive assessed: 03/23/25 VIKTORIA-7 AMB Questionnaire VIKTORIA-7 Date VIKTORIA - 7 assessed: 03/23/25 Source: Developed by Drs. Carroll Power, Chiquita Porter, Rod Branham and colleagues, with an educational tuan from [employer]. Review of Systems Const Denies chills, Denies fatigue, Denies fever(s) and Denies headache(s) ENT Denies dysphagia, Denies dizziness, Denies otalgia, Denies headache(s), Denies neck pain, Denies odynophagia and Denies sore throat Card Denies chest pain, Denies palpitations and Denies dyspnea Resp Denies chest congestion, Denies cough and Denies dyspnea GI Denies abdominal pain, Denies constipation, Denies dysphagia, Denies heartburn, Denies diarrhea, Denies nausea, Denies odynophagia and Denies vomiting Denies difficulty urinating, Denies dysuria, Denies nocturia and Denies urinary frequency Musc Reports back pain (over the lower back - chronic), Reports arthralgias (involving both knees, on and off) and Denies neck pain Skin/Breast Denies rash Neuro Denies dizziness and Denies headache(s) Endo Denies fatigue and Denies palpitations Physical exam (Primary Care) Vital Signs: Last Vital Signs Pulse 81 04/19/25 10:19 Resp 18 04/19/25 10:19 BP 102/66 04/19/25 10:19 Pulse Ox 97 04/19/25 10:19 Oxygen Delivery Method Room Air 04/19/25 10:19 BMI result Body Mass Index 31.3 Tobacco/Smoking Status: Tobacco use Status Tobacco use date assessed 04/19/25 04/19/25 10:27 Patient Tobacco Use Status Former Tobacco user 04/19/25 10:27 Tobacco use type Cigarette 04/19/25 10:27 e-Cigarette/Vaping Use Never Used 04/19/25 10:27 Thrive Assessment: Date of Thrive Assessment Date Thrive assessed 03/23/25 04/19/25 10:27 Const General: no acute distress and alert HENMT Throat: Yes posterior oropharynx normal and Yes tonsils normal (no TP congestion) Neck Neck: Yes supple and No lymphadenopathy Thyroid: Thyroid normal Resp Auscultation: clear to auscultation bilaterally, no rales and no wheezes Cardio Rate: regular rate Rhythm: regular rhythm Heart sounds: no murmurs GI Palpation (GI): Soft to palpation and nontender Auscultation: normal bowel sounds General: Yes no CVA tenderness Back/Spine/Pelvis Back: no CVA tenderness Thoracic/Lumbar Spine: lumbar spinal tenderness (chronic) Skin Rashes: no rashes Extrem General: Yes no clubbing, cyanosis or edema Results Reviewed Results Reviewed: Laboratory Tests 04/19/25 09:26 WBC 5.3 Hgb 15.1 Hct 46.1 Plt Count 250 ESR 11 Sodium 138 Potassium 4.3 Creatinine 0.89 Estimated GFR > 60 Random Glucose 83 Calcium 8.6 AST 23 ALT 12 C-Reactive Protein 0.10 Coding Level of Care Code Est Pt Level 4 (85682) Diagnoses Failed back syndrome M96.1 HLA-B27 spondyloarthropathy M47.899 Pure hypercholesterolemia E78.00 Mild intermittent asthma without complication J45.20 Asthma severity: mild Asthma persistence: intermittent Asthma complication type: uncomplicated GERD without esophagitis K21.9 Vitamin D deficiency E55.9 Allergic rhinitis, unspecified seasonality, unspecified trigger J30.9 Allergic rhinitis trigger: unspecified Allergic rhinitis seasonality: unspecified Obesity (BMI 30-39.9) E66.9 Assessment & Plan Assessment & Plan (1) Failed back syndrome: Code(s): M96.1 - Postlaminectomy syndrome, not elsewhere classified Category: Medical Plan: Reinforced activity and weight-lifting restrictions Continue Oxycodone 10 mg Q 8 hours PRN for pain - Rx refilled Patient was seen by pain management a few months ago and was supposed to get an MRI done but this appears to have been denied by his health insurance as it has never been scheduled or done Follow up with pain management as scheduled (2) HLA-B27 spondyloarthropathy: Comment: Mark: April 2017-07/2023 Dc due to secondary non-response Humira 07/2023 Code(s): M47.899 - Other spondylosis, site unspecified Category: Surgical Plan: Continue Humira 40 mg SQ every 2 weeks Follow up with [facility] Rheumatology (Dr. Ro) as scheduled (3) Pure hypercholesterolemia: Code(s): E78.00 - Pure hypercholesterolemia, unspecified Category: Medical Plan: Results of his labs done earlier today reviewed and discussed with patient but these are non-fasting and did not include his fastng lipids Reinforced low cholesterol diet He is reminded that his cholesterol levels have increased significantly from a year ago on his most recent labs and he should be careful with his diet, especially over the upcoming holidays We will recheck his cholesterol levels again sometime early next year for follow up (4) Asthma: Code(s): J45.909 - Unspecified asthma, uncomplicated Category: Medical Qualifiers: Asthma severity: mild Asthma persistence: intermittent Asthma complication type: uncomplicated Qualified Code(s): J45.20 - Mild intermittent asthma, uncomplicated Plan: Controlled Continue Albuterol HFA 1 to 2 inhalations every 6 hours PRN (5) GERD without esophagitis: Code(s): K21.9 - Gastro-esophageal reflux disease without esophagitis Category: Medical Plan: Dietary restrictions reinforced Continue Omeprazole 20 mg QD - Rx refilled (6) Vitamin D deficiency: Code(s): E55.9 - Vitamin D deficiency, unspecified Category: Medical Plan: Continue Vitamin D3 2000 units QD (7) Allergic rhinitis: Code(s): J30.9 - Allergic rhinitis, unspecified Category: Medical Qualifiers: Allergic rhinitis trigger: unspecified Allergic rhinitis seasonality: unspecified Qualified Code(s): J30.9 - Allergic rhinitis, unspecified Plan: Continue Fluticasone 50 mcg nasal spray QD PRN (8) Obesity (BMI 30-39.9): Code(s): E66.9 - Obesity, unspecified Category: Medical Plan: Reinforced diet; exercise and weight loss are not practical given patient's multiple comorbidities and physical issues Plan Follow up in 1 month Medications: Refilled oxycodone 10 mg PO Q8H PRN 84 tabs 0RF pain 28 days omeprazole 20 mg PO DAILY 60 caps 1RF
[2025-04-19 10:19] VITALS: BP 102/66; PULSE 81; RESP 18; O2SAT 97; BMI 31.3
== END 2025-04-19 12:04 | disposition home or self-care (01) ==
LOC: HO.HMCH 10:04
PROVIDERS: PCP Internal Medicine; Visit Provider Internal Medicine
DX: M96.1 Postlaminectomy syndrome, not elsewhere classified (principal); E66.9 Obesity, unspecified; Z68.31 Body mass index [BMI] 31.0-31.9, adult; E78.00 Pure hypercholesterolemia, unspecified; M47.899 Other spondylosis, site unspecified; J45.20 Mild intermittent asthma, uncomplicated; K21.9 Gastro-esophageal reflux disease without esophagitis; E55.9 Vitamin D deficiency, unspecified; J30.9 Allergic rhinitis, unspecified

== ENCOUNTER 2025-04-20 14:25 | Outpatient (AMB) | payer OTHER, SELFPAY ==
--- NOTE | 2025-04-20 14:39 | A.OFFVIS_ITS ---
Vital Signs 04/20/25 14:47 Height 6 ft Weight 232 lb 5.875 oz BMI 31.5 BP 112/70 Blood Pressure Location Lt brachial Position Sitting Pulse 96 Pulse Source Pulse Oximeter Pulse Oximetry (%) 97 Oxygen Delivery Method Room Air 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: follow up Intake Note: Patient presents today for follow up and test results. Visiting Housekeeper Required: No Information Interpreted: non-clinical & clinical Accompanied by: Self / Same As Patient Allergies naproxen Allergy (Severe, Verified 04/20/25 14:44) Anaphylaxis seasonal allergies Allergy (Unknown, Uncoded 04/19/25 10:41) Unknown Medication List - Last Reconciled 04/20/25 by Roz Ro MD adalimumab (Humira(CF) Pen) 40 mg (0.4 mL) subcut Q2W adalimumab-bwwd (Hadlima(CF) PushTouch) 40 mg (0.4 mL) subcut Q2W albuterol sulfate 90 mcg/actuation 2 puffs inhalation Q6H PRN 30 days cholecalciferol (vitamin D3) 50 mcg PO DAILY 90 days fluocinonide 0.05% appl topical fluticasone propionate 50 mcg/actuation 1 spray intranasal BID omeprazole 20 mg PO DAILY oxycodone 10 mg PO Q8H PRN 28 days sildenafil (Viagra) 50 mg PO DAILY PRN tacrolimus 0.1% 1 appl topical BID triamcinolone acetonide 0.5% 1 appl topical TID HPI Comments Details: Patient is a 59-year-old male with GERD, polyarticular osteoarthritis and HLA B27 positive ankylosing spondylitis here today for follow up Interval History: Patient last seen 10/27/24 with me - On Humira 40mg SC every 2 weeks - At that time he was following up for his HLA B27 positive ankylosing spondylitis on Humira monotherapy. - He was tolerating the Humira but continued to have right lower back pain and also right buttock pain especially when he lies down. - His back pains were attributed to degenerative disease and he was sent to pain management for further evaluation - Patient did not go to pain management b/c he thought it was PT - Complaining of right lateral elbow pain Today - On Humira 40mg SC every 2 weeks - currently doing well overall - following with pain management and currently awaiting MRI of the L-spine to further direct management - no new complaints - insurance is requiring him to change to had OSORIO Rheumatologic History: Enbrel: April 2017-07/2023 Dc due to secondary non-response Humira 07/2023 - 04/2025 (due to insurance) Hadlima 05/2025 - Initial history: Patient had 4 years of recurrent knee swelling, shoulder and back pain. His back pain started before age 39. Pain alternated down each buttock, woke him up in the second half of the night and was worse in morning. Inflammatory markers were elevated . Current Rheumatology Medication(s): Humira 40mg SC every 2 weeks [facility] Medical History Vitamin D deficiency Pure hypercholesterolemia Obesity (BMI 30-39.9) Allergic rhinitis GERD without esophagitis Obesity Asthma Failed back syndrome Hx of hemorrhoids Hx of osteoarthritis Family history of GERD Hx of gout History of rectal bleeding Surgical History HLA-B27 spondyloarthropathy History of arthroscopy of right knee History of inguinal hernia repair History of adenoidectomy History of lumbar surgery History of back surgery Hx of knee surgery Hx of tonsillectomy Family History Mother Pancreas cancer Diabetes Father Prostate cancer Rheumatoid arthritis Brother Diabetes Sister Diabetes Daughter No problems noted. Social History Housing: House Alcohol intake: current Alcohol intake frequency: holidays/special occasions only Patient Tobacco Use Status: Former Tobacco user Tobacco use type: Cigarette e-Cigarette/Vaping Use: Never Used Second Hand Smoke Exposure: Yes service: No Current occupational status: disabled Current occupational exposures/hazards: No Cognitive needs: No Hearing needs: No Vision needs: No Review of Systems Narrative Review of Systems Constitutional: Denies fever, chills, weight loss ENT: Denies vision changes, eye pain or eye redness, dental caries, dry mouth GI: Denies nausea, vomiting, diarrhea, abdominal pain, change in BM Pulm: Denies SOB, KIM, hemoptysis, wheezing Cards: Denies chest pain, palpitations Skin: Denies Raynaud's, rash, nail changes, photosensitivity, 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 Well appearing and in no apparent painful distress MSK Hands * Right Hand: Able to make a fist. No swelling or tenderness to palpation of the MCPs, PIPs or DIPs. * Left Hand: Able to make a fist. No swelling or tenderness to palpation of the MCPs, PIPs or DIPs. * Herbedens nodes noted bilaterally Wrists * Right Wrist: Full ROM to flexion and extension. No swelling or TTP * Left Wrist: Full ROM to flexion and extension. No swelling or TTP Elbows * Right Elbow: Full ROM. No swelling or TTP. No TTP of the medial epicondyle. No TTP of the lateral epicondyle * Left Elbow: Full ROM. No swelling or TTP. No TTP of the medial epicondyle. No TTP of the lateral epicondyle Shoulders * Right shoulder: Full ROM. No swelling noted. No TTP of the AC joint. No TTP of the subacromial bursa. No TTP of the posterior shoulder * Left shoulder: Full ROM. No swelling noted. No TTP of the AC joint. No TTP of the subacromial bursa. No TTP of the posterior shoulder Knees * Right knee: Full ROM. No swelling noted. No TTP of the knee joint line. No TTP of pes anserine bursa * Left knee: Full ROM. No swelling noted. No TTP of the knee joint line. No TTP of pes anserine bursa. Ankles * Right ankle: Good ankle dorsiflexion and plantar flexion. No swelling. No TTP of the ankle joint * Left ankle: Good ankle dorsiflexion and plantar flexion. No swelling. No TTP of the ankle joint Feet * Right foot: Negative squeeze test * Left foot: Negative squeeze test Tender points? * No tenderness to palpation of the bilateral trapezius, supraspinatus, anterior costochondral junctions, bilateral suboccipital muscle insertions SKIN No rashes Vital Signs: Last Vital Signs Pulse 96 04/20/25 14:47 BP 112/70 04/20/25 14:47 Pulse Ox 97 04/20/25 14:47 Oxygen Delivery Method Room Air 04/20/25 14:47 BMI result Body Mass Index 31.5 Results Reviewed Results Reviewed: Laboratory Tests 10/20/25 12/17/25 09:34 09:26 WBC 5.3 RBC 5.21 Hgb 15.1 Hct 46.1 Plt Count 250 ESR 11 Sodium 138 Potassium 4.3 Chloride 109 H Carbon Dioxide 25 BUN 14 Creatinine 0.89 AST 23 ALT 12 C-Reactive Protein 0.10 25-OH Vitamin D Total 27.2 L Laboratory Tests 05/14/23 04/19/25 08:17 09:26 Hepatitis A IgM Ab Nonreactive Hep Bs Antigen Negative Hep Bs Antibody NONREACTIVE Hep B Core Total Ab Nonreactive Hepatitis C Ab (EIA) Nonreactive TB Test (T-Spot) Com Negative Pending Assessment & Plan Assessment & Plan (1) HLA-B27 spondyloarthropathy: Comment: Enbrel: April 2017-07/2023 Dc due to secondary non-response Humira 07/2023 - 04/2025 (due to insurance) Hadlima 05/2025 - Code(s): M47.899 - Other spondylosis, site unspecified Category: Surgical Plan: #HLA B27 positive Ankylosing spondylitis Patient is a 60-year-old male with HLA B27 positive ankylosing spondylitis here today for follow up. Currently in remission on Humira monotherapy Currently being evaluated by pain management for further therapeutic modalities. 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 of immunosuppressive biologic Plan: #Long-term Use of TNF Inhibitors: Humira Discussed with the patient the benefits and risks of TNF inhibitors for the management of the rheumatic condition Benefits include reduce pain, maintenance of remission and reduction of flares as well as progression of the disease Risks include injection sites/infusion reactions, serious infections (such as bacterial infections, opportunistic infections), malignancy, delaminating syndromes, autoimmune phenomena, CHF exacerbations, palmar plantar psoriasis and cytopenias Recommended rotating injection sites, and holding medication during and for up to 1 week after resolution of a febrile illness or open skin wound Plan I spent 25 minutes reviewing the record and labs, taking a history, examining the patient, discussing the treatment plan, ordering diagnostic work up and documenting in the medical record Orders: Orders Complete Blood Count Auto Diff 6 Months Z79.899 - Other half-way (current) drug therapy Comprehensive Met. Panel 6 Months Z79.899 - Other superintendent terminal (current) drug therapy Erythrocyte Sedimentation Rate 6 Months Z79.899 - Other superintendent terminal (current) drug therapy C Reactive Protein 6 Months Z79.899 - Other half-way (current) drug therapy Coding Level of Care Code Est Pt Level 3 (09615) Add On Problem Visit Only Diagnoses HLA-B27 spondyloarthropathy M47.899 Encounter for monitoring of adalimumab therapy Z51.81; Z79.620
[2025-04-20 14:47] VITALS: BP 112/70; PULSE 96; O2SAT 97; BMI 31.5
--- OUTSIDE RECORDS SUMMARY | 2025-04-20 18:35 | XMS_ITS | Clinical Summary ---
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
--- OUTSIDE RECORDS SUMMARY | 2025-04-20 18:35 | XMS_ITS | Patient Health Record ---
Author Organization [facility] Address [address] [place] [address] Care Team Providers Care Cis Coordinator Name Role Phone Roldan Andino MD Primary Care Provider Carroll Wright Unavailable [phone] Allergies Allergen (clinical drug ingredient) Drug/Non Drug [...] Status Risk Notes Problem Blood in stool (646250559) Blood in stool (578.1) Active confirmed Problem Family history of malignant neoplasm of gastrointestinal tract (025365226) Family history of malignant neoplasm of gastrointestinal tract (V16.0) Active confirmed Plan Of Treatment Future Test Test Name Order Date COLONOSCOPY 06/05/2011 Insurance Providers Payer Name Payer Address Payer Phone Subscriber Number Group Number Insured Name Patient Relationship to Insured Coverage Start Date Coverage End Date MEDICA[employer] OF [employer] [address] [place] [phone] [id number] RENÉ MOE Self - patient is the insured Medical (General) History Medical History History ICD Code Denies NE,DM,CVA,Lung disease,renal dise ase Surgical History Surgery Date(Month/Year) 3 back surgeries knee hernia
== END 2025-04-20 15:14 | disposition home or self-care (01) ==
LOC: HO.RHES 14:26
PROVIDERS: PCP Internal Medicine; Visit Provider Student in an Organized Health Care Education/Training Program
DX: M47.899 Other spondylosis, site unspecified (principal); Z51.81 Encounter for therapeutic drug level monitoring; Z79.620 Long term (current) use of immunosuppressive biologic
CPT/HCPCS: 99213

== ENCOUNTER → 2025-04-20 14:25 | Outpatient (BNVA) | payer OTHER, SELFPAY | PROVIDERS: PCP Internal Medicine; Visit Provider Student in an Organized Health Care Education/Training Program | DX: M47.899 Other spondylosis, site unspecified (principal); Z51.81 Encounter for therapeutic drug level monitoring; Z79.620 Long term (current) use of immunosuppressive biologic; Z79.899 Other long term (current) drug therapy | CPT/HCPCS: 99212 ==